=== PATIENT | female | born 1965 | race Caucasian/White ===

== ENCOUNTER 2017-07-11 15:13 | Inpatient (IN) | payer BC ==
[2017-07-11] MEDS ORDERED: IPRATROPIUM-ALBUTEROL 3 ML NEB INHALATION STA (16:31)
--- NOTE | 2017-07-11 16:31 | ED ---
SOB HPI - General Chief Complaint: Shortness of Breath Stated Complaint: Cough Time Seen by Provider: 07/11/17 16:21 Source: patient, RN notes reviewed, old records reviewed Mode of arrival: ambulatory Limitations: no limitations - History of Present Illness Initial Comments: This is a 52-year-old female history of stage IV left breast cancer who is been apparently disease-free for the past 2 years who states she's had a cough for about the last 2 weeks. She's had 2 courses of steroids 2 courses of antibiotics without any relief. She has chills and sweats at times she has orthopnea she has exertional dyspnea. She did see a breaking machine operator but that had apparently CAT scan was not accessible. She is here today for the above complaints. She denies any overt chest pain he states she has had decreased appetite. She also states she was scheduled to have a bone scan and computed tomography scan at [facility] for follow-up. MD Complaint: shortness of breath, cough - Related Data Home Medications Medication Instructions Recorded Confirmed Insulin Glargine [Lantus] 10 unit SQ HS 02/27/14 07/11/17 Venlafaxine HCl ER [Effexor XR] 150 mg PO DAILY 02/27/14 07/11/17 Lisinopril [Zestril] 10 mg PO DAILY 07/26/16 07/11/17 Metoprolol Succinate (ER) [Toprol 100 mg PO HS 07/26/16 07/11/17 Xl] Tamoxifen Citrate 20 mg PO DAILY 07/26/16 07/11/17 metFORMIN HCL ER [Glucophage Xr] 500 mg PO W/BRKFST 07/26/16 07/11/17 Promethaz-Cod 6.25-10 mg/5 ml 5 ml PO Q8HR PRN 07/02/17 07/11/17 [Phenergan with Codeine] Albuterol Nebulized [Ventolin 2.5 mg INHALATION RT-QID PRN 07/11/17 07/11/17 Nebulized] Albuterol Sulfate [Proair 2 puff INHALATION RT-Q4H PRN 07/11/17 07/11/17 Respiclick] Ipratropium-Albuterol Nebulize 3 ml INHALATION RT-QID PRN 07/11/17 07/11/17 [Duoneb 0.5 mg-3 mg/3 ml Soln] Simvastatin [Zocor] 20 mg PO HS 07/11/17 07/11/17 Allergies Allergy/AdvReac Type Severity Reaction Status Date / Time sulfamethoxazole Allergy Itching Verified 07/11/17 18:09 [From Bactrim] trimethoprim [From Bactrim] Allergy Itching Verified 07/11/17 18:09 Review of Systems ROS Statement: Those systems with pertinent positive or pertinent negative responses have been documented in the HPI. ROS Other: All systems not noted in ROS Statement are negative. Past Medical History Past Medical History: Cancer, Diabetes Mellitus, Hyperlipidemia, Hypertension, Skin Disorder, Sleep Apnea/CPAP/BIPAP, Supraventricular Tachycardia (SVT) Additional Past Medical History / Comment(s): STAGE 4 BREAST CANCER, CHEMO RELATED BODY RASH. Cancer free for 2 years with clear scans but still takes daily chemo orally. History of Any Multi-Drug Resistant Organisms: None Reported Past Surgical History: Breast Surgery Additional Past Surgical History / Comment(s): DOUBLE MASTECTOMY, SINUS SURGERY , wisdom teeth out 2010 Past Anesthesia/Blood Transfusion Reactions: No Reported Reaction Past Psychological History: Anxiety, Panic Disorder Smoking Status: Never smoker Past Alcohol Use History: None Reported Past Drug Use History: None Reported - Past Family History Mother Family Medical History: Cancer Father Family Medical History: CVA/TIA General Exam - General Exam Comments Initial Comments: This is a well-developed well-nourished awake alert oriented 3 female Limitations: no limitations General appearance: alert, in no apparent distress Head exam: Present: atraumatic, normocephalic, normal inspection Eye exam: Present: normal appearance, PERRL, EOMI. Absent: scleral icterus, conjunctival injection, periorbital swelling ENT exam: Present: normal exam, mucous membranes moist Neck exam: Present: normal inspection. Absent: tenderness, meningismus, lymphadenopathy Respiratory exam: Present: accessory muscle use, decreased breath sounds. Absent: respiratory distress, wheezes, rales, rhonchi, stridor Cardiovascular Exam: Present: normal rhythm, tachycardia, normal heart sounds. Absent: systolic murmur, diastolic murmur, rubs, gallop, clicks GI/Abdominal exam: Present: soft, normal bowel sounds. Absent: distended, tenderness, guarding, rebound, rigid Extremities exam: Present: normal inspection, full ROM, normal capillary refill. Absent: tenderness, pedal edema, joint swelling, calf tenderness Back exam: Present: normal inspection Neurological exam: Present: alert, oriented X3, CN II-XII intact Psychiatric exam: Present: normal affect, normal mood Skin exam: Present: warm, dry, intact, normal color. Absent: rash Course Vital Signs 07/11/17 07/11/17 07/11/17 15:24 16:25 16:59 Temperature 97.6 F Pulse Rate 121 H 102 H Respiratory 20 20 24 Rate Blood Pressure 115/66 120/68 O2 Sat by Pulse 95 96 Oximetry 07/11/17 07/11/17 07/11/17 17:00 17:10 17:35 Temperature Pulse Rate 102 H 100 105 H Respiratory 20 Rate Blood Pressure 125/62 O2 Sat by Pulse 95 Oximetry 07/11/17 07/11/17 18:10 19:16 Temperature 100.0 F H Pulse Rate 108 H 107 H Respiratory 20 18 Rate Blood Pressure 108/66 127/74 O2 Sat by Pulse 96 96 Oximetry - Reevaluation(s) Reevaluation #1: 07/11/17 17:47 I did obtain a copy of the CAT scan was done on 07/03/17 showed evidence a right pleural effusion mild atelectasis at the right lung base low-density right upper lobe small infiltrates of uncertain significance there is clearing of a right upper lobe 3 x 2 cm infiltrate from previous exam. There is a Pleural effusion also a large calcified gallstone. Medical Decision Making - Medical Decision Making I did review the CAT scan there is evidence of small right pleural effusion small pericardial effusion coronary calcifications no pulmonary embolism. Patient is his symptoms for the past 2 weeks with no improvement she will be admitted with consultation by Dr. Tracy. - Lab Data Result diagrams: 07/11/17 17:26 07/11/17 17:26 Lab Results 07/11/17 07/11/17 07/11/17 Range/Units 17:26 17:26 17:26 WBC 9.8 (3.8-10.6) k/uL RBC 5.22 (3.80-5.40) m/uL Hgb 15.0 (11.4-16.0) gm/dL Hct 47.6 H (34.0-46.0) % MCV 91.1 (80.0-100.0) fL MCH 28.8 (25.0-35.0) pg MCHC 31.6 (31.0-37.0) g/dL RDW 15.2 (11.5-15.5) % Plt Count 252 (150-450) k/uL Neutrophils % 69 % Lymphocytes % 19 % Monocytes % 8 % Eosinophils % 1 % Basophils % 1 % Neutrophils # 6.8 (1.3-7.7) k/uL Lymphocytes # 1.9 (1.0-4.8) k/uL Monocytes # 0.8 (0-1.0) k/uL Eosinophils # 0.1 (0-0.7) k/uL Basophils # 0.1 (0-0.2) k/uL PT 10.7 (9.0-12.0) sec INR 1.1 (<1.2) APTT 23.3 (22.0-30.0) sec D-Dimer 1.48 H (<0.60) mg/L FEU Sodium 137 (137-145) mmol/L Potassium 4.7 (3.5-5.1) mmol/L Chloride 101 (98-107) mmol/L Carbon Dioxide 24 (22-30) mmol/L Anion Gap 12 mmol/L BUN 23 H (7-17) mg/dL Creatinine 0.92 (0.52-1.04) mg/dL Est GFR (MDRD) Af Amer >60 (>60 ml/min/1.73 sqM) Est GFR (MDRD) Non-Af >60 (>60 ml/min/1.73 sqM) Glucose 226 H (74-99) mg/dL Calcium 9.1 (8.4-10.2) mg/dL Magnesium 1.7 (1.6-2.3) mg/dL Total Bilirubin 0.2 (0.2-1.3) mg/dL AST 98 H (14-36) U/L ALT 94 H (9-52) U/L Alkaline Phosphatase 78 (38-126) U/L Total Creatine Kinase (30-135) U/L CK-MB (CK-2) (0.0-2.4) ng/mL CK-MB (CK-2) Rel Index Troponin I (0.000-0.034) ng/mL NT-Pro-B Natriuret Pep pg/mL Total Protein 6.4 (6.3-8.2) g/dL Albumin 3.4 L (3.5-5.0) g/dL 07/11/17 07/11/17 Range/Units 17:26 17:26 WBC (3.8-10.6) k/uL RBC (3.80-5.40) m/uL Hgb (11.4-16.0) gm/dL Hct (34.0-46.0) % MCV (80.0-100.0) fL MCH (25.0-35.0) pg MCHC (31.0-37.0) g/dL RDW (11.5-15.5) % Plt Count (150-450) k/uL Neutrophils % % Lymphocytes % % Monocytes % % Eosinophils % % Basophils % % Neutrophils # (1.3-7.7) k/uL Lymphocytes # (1.0-4.8) k/uL Monocytes # (0-1.0) k/uL Eosinophils # (0-0.7) k/uL Basophils # (0-0.2) k/uL PT (9.0-12.0) sec INR (<1.2) APTT (22.0-30.0) sec D-Dimer (<0.60) mg/L FEU Sodium (137-145) mmol/L Potassium (3.5-5.1) mmol/L Chloride (98-107) mmol/L Carbon Dioxide (22-30) mmol/L Anion Gap mmol/L BUN (7-17) mg/dL Creatinine (0.52-1.04) mg/dL Est GFR (MDRD) Af Amer (>60 ml/min/1.73 sqM) Est GFR (MDRD) Non-Af (>60 ml/min/1.73 sqM) Glucose (74-99) mg/dL Calcium (8.4-10.2) mg/dL Magnesium (1.6-2.3) mg/dL Total Bilirubin (0.2-1.3) mg/dL AST (14-36) U/L ALT (9-52) U/L Alkaline Phosphatase (38-126) U/L Total Creatine Kinase 84 (30-135) U/L CK-MB (CK-2) 1.1 (0.0-2.4) ng/mL CK-MB (CK-2) Rel Index 1.3 Troponin I <0.012 (0.000-0.034) ng/mL NT-Pro-B Natriuret Pep 103 pg/mL Total Protein (6.3-8.2) g/dL Albumin (3.5-5.0) g/dL - EKG Data -: EKG Interpreted by Tx EKG shows normal: sinus rhythm (Sinus tachycardia rate 109 OR interval 140 QRS duration of 68 QT/QTC of 3:30/[address]-T wave changes.) - Radiology Data Radiology results: report reviewed (Imaging shows no acute findings.), image reviewed Disposition Clinical Impression: Acute bronchospasm, Pleural effusion, Pericardial effusion, Febrile illness, acute Disposition: ADMITTED IP TO THIS HOSP Condition: Stable Referrals: Eladio Tobar MD [Primary Care Provider] - 1-2 days
[2017-07-11 17:37] LABS: Basophils # (A) 0.1 k/uL (0-0.2); Basophils % (A) 1 %; CH 30.2; CHCM 33.3; Eosinophils # (A) 0.1 k/uL (0-0.7); Eosinophils % (A) 1 %; HCT 47.6 % (34.0-46.0); Luc # (Auto) 0.15; Luc % (Auto) 2; Lymphocytes # (A) 1.9 k/uL (1.0-4.8); Lymphocytes % (A) 19 %; MCH 28.8 pg (25.0-35.0); MCHC 31.6 g/dL (31.0-37.0); MCV 91.1 fL (80.0-100.0); Mean Platelet Volume 8.4; Monocytes # (A) 0.8 k/uL (0-1.0); Monocytes % (A) 8 %; Neutrophils # (A) 6.8 k/uL (1.3-7.7); Neutrophils % (A) 69 %; RBC 5.22 m/uL (3.80-5.40); RDW 15.2 % (11.5-15.5); WBC 9.8 k/uL (3.8-10.6)
[2017-07-11 17:48] LABS: ALT 94 U/L (9-52); AST 98 U/L (14-36); Alkaline Phosphatase 78 U/L (38-126); Anion Gap 12 mmol/L; Blood Urea Nitrogen 23 mg/dL (7-17); Calcium 9.1 mg/dL (8.4-10.2); Carbon Dioxide 24 mmol/L (22-30); Chloride 101 mmol/L (98-107); Glucose 226 mg/dL (74-99); Magnesium 1.7 mg/dL (1.6-2.3); Non-African American GFR(MDRD) >60 (>60 ml/min/1.73 sqM); Potassium 4.7 mmol/L (3.5-5.1); Sodium 137 mmol/L (137-145); Total Bilirubin 0.2 mg/dL (0.2-1.3); Total Protein 6.4 g/dL (6.3-8.2)
[2017-07-11 17:51] LABS: INR 1.1 (<1.2); Partial Thromboplastin Time 23.3 sec (22.0-30.0); Prothrombin Time 10.7 sec (9.0-12.0)
[2017-07-11 18:05] LABS: Creatine Kinase 84 U/L (30-135)
--- NOTE | 2017-07-11 18:12 | XR ---
EXAMINATION TYPE: XR chest 2V DATE OF EXAM: 07/11/2017 COMPARISON: 10/11/2016 HISTORY: Cough and right-sided chest pain TECHNIQUE: Frontal and lateral views of the chest are obtained. FINDINGS: Right IJ Port-A-Cath tip superimposed over the cavoatrial junction. EKG leads noted. Left a xillary surgical clips are noted. There is no definite focal air space opacity. However, the hemidiaphragms are elevated consistent wit h low lung inflation state at the moment of x-ray exposure. This tends to crowd the pulmonary vascula ture and produce scattered subsegmental atelectasis, which is apparent. The pleural spaces are positive for a meniscus in the right lateral sulcus and the posterior sulcus The cardiac silhouette size is within normal limits. The arborization of the pulmonary vasculature is intact.. The osseous structures are unremarkable. IMPRESSION: 1. SMALL RIGHT PLEURAL EFFUSION NOT SEEN ON THE PRIOR STUDY. 2. NO DEFINITE ACUTE PULMONARY PROCESS, BUT EARLY BRONCHOPNEUMONIA CAN ONLY BE INCLUDED ON A CLINICAL BASIS.
[2017-07-11 18:17] LABS: Creatine Kinase MB 1.1 ng/mL (0.0-2.4); Troponin I <0.012 ng/mL (0.000-0.034)
[2017-07-11] MEDS ORDERED: RX INFO: IV CONTRAST WAS GIVEN 1 EACH MISC MISCELLANE PRN (18:37)
[2017-07-11] MEDS ORDERED: ACETAMINOPHEN TAB 500 MG TAB PO STA (19:20)
--- NOTE | 2017-07-11 19:25 | CT ---
EXAMINATION TYPE: CT angio chest DATE OF EXAM: 07/11/2017 7:03 PM COMPARISON: NONE HISTORY: Cough, congestion and chest discomfort for [address] DLP: 445.4 mGycm Automated exposure control for dose reduction was used. CONTRAST: CTA scan of the thorax is performed with IV Contrast, patient injected with 100 mL of Omnipaque 350, pulmonary embolism protocol. . FINDINGS: LUNGS: The airways are unremarkable. The lungs are grossly clear, with no concerning parenchymal mass . However, a few scattered 4 to 7 mm pulmonary nodules are identified. These are noncalcified and can not be further characterized without and study. Nonexistent. Therefore, would advise 6 month follow-u p chest CT to ensure stability-benignity over time. PLEURAL SPACES: There is a small right pleural effusion noted, appearing to be simple. Pleural spaces otherwise unremarkable. MEDIASTINUM: There is satisfactory enhancement of the pulmonary artery and its branches, with no CT e vidence for pulmonary embolism. There are no greater than 1 cm hilar or mediastinal lymph nodes. The re is no cardiomegaly. Coronary calcifications are noted. Small pericardial effusion noted. SKELETAL STRUCTURES: Unremarkable. OTHER: Cholelithiasis noted in an otherwise unremarkable gallbladder. IMPRESSION: 1. NEGATIVE FOR PULMONARY EMBOLUS. 2. SMALL RIGHT PLEURAL EFFUSION NOTED. 3. SMALL PERICARDIAL EFFUSION. 4. CORONARY CALCIFICATIONS NOTED.
[2017-07-11] MEDS ORDERED: methylPREDNISolone SOD SUCCI 125 MG/2 ML VIAL IV STA (20:06)
[2017-07-11] MEDS ORDERED: PROMETHAZ-COD 6.25-10 MG/5 ML 5 ML CUP PO PRN (20:09)
[2017-07-11] MEDS: SODIUM CHLORIDE 0.9% 1,000 ML IV SCH (20:23)
[2017-07-11] MEDS ORDERED: INSULIN GLARGINE 100 UNIT/ML 10 ML VIAL SQ SCH (21:00)
[2017-07-11] MEDS ORDERED: METOPROLOL SUCCINATE (ER) 100 MG TAB.ER.24H PO SCH (21:00)
[2017-07-11] MEDS ORDERED: IPRATROPIUM-ALBUTEROL 3 ML NEB INHALATION PRN (21:58)
[2017-07-11] MEDS: ATORVASTATIN 10 MG TAB PO SCH (22:10)
[2017-07-11 22:12] LABS: Glucose,Whole Blood 138 mg/dL (75-99)
[2017-07-12] MEDS ORDERED: IPRATROPIUM-ALBUTEROL 3 ML NEB INHALATION SCH
[2017-07-12 00:02] VITALS: BMI 37.4
[2017-07-12] MEDS: methylPREDNISolone SOD SUCCI 125 MG/2 ML VIAL IV SCH ×3 (00:06→12:05)
[2017-07-12 06:01] LABS: Glucose,Whole Blood 331 mg/dL (75-99)
[2017-07-12] MEDS: INSULIN LISPRO (humaLOG) 300 UNIT/3 ML VIAL SQ SCH ×4 (06:24→21:18)
[2017-07-12] MEDS ORDERED: metFORMIN 500 MG TAB PO SCH ×2 (07:30→17:30)
[2017-07-12] MEDS: VENLAFAXINE HCL ER 150 MG CAP PO SCH (08:25)
[2017-07-12] MEDS: TAMOXIFEN 10 MG TAB PO SCH (08:25)
[2017-07-12] MEDS ORDERED: LISINOPRIL 10 MG TAB PO SCH (09:00)
[2017-07-12] MEDS: IPRATROPIUM-ALBUTEROL 3 ML NEB INHALATION SCH ×2 (10:57→11:00)
[2017-07-12 11:35] LABS: Glucose,Whole Blood 259 mg/dL (75-99)
[2017-07-12] MEDS: ENOXAPARIN 40 MG/0.4 ML SYRINGE SQ SCH (12:06)
[2017-07-12 12:42] LABS: Hemoglobin A1C 7.9 % (4.2-6.1)
[2017-07-12] MEDS: METOPROLOL TARTRATE 50 MG TAB PO SCH ×2 (15:40→21:17)
[2017-07-12] MEDS: LORATADINE 10 MG TAB PO SCH ×2 (15:41→21:17)
--- NOTE | 2017-07-12 16:14 | P.CNPUL ---
History of Present Illness Consult date: 07/12/17 Reason for consult: cough History of present illness: This is a 52-year-old female patient with known history of metastatic breast cancer was undergone bilateral mastectomy. She is morbidly obese. She has history of obstructive sleep apnea and she is maintained on CPAP therapy. She also has history of hypertension taking lisinopril for at least 5 years for blood pressure control. For the past 2 months, the patient started having symptoms of cough. Her cough is dry and she was not bringing up much of sputum. She has minimal postnasal drainage. She has been also expressing some exertional dyspnea. No pleurisy. No hemoptysis. She had seen her primary care physician and she has already received 2 rounds of systemic steroids without much of any improvement. She also has received several psych some antibiotics without improvement. She is getting quite frustrated from her ongoing cough and she's been having also some limited exertional dyspnea and addition to other nonspecific chest discomfort and diminished appetite. The patient is not hypoxic and her pulse ox is around 94% on room air. For all this reasons, the patient decided to come into the hospital where a CT angios the chest was done and it showed a small right-sided pleural effusion. The pleural surface itself was irregular. There is also scattered area of nodularity throughout the lung bedoya bilaterally and the largest nodules is measuring around 7 mm in size. These are noncalcified. The exact nature of these nodules are not clear to me at this point. The left pleural space was clean. There is also a very small tiny anterior pericardial effusion. No leukocytosis. Rest of the electrodes are all within normal limits. No 70 bronchial asthma. She has undergone bilateral mastectomy. She has stage IV breast cancer and she had history of metastases to her liver. She is currently on tamoxifen. Review of Systems Constitutional: Reports poor appetite, Reports weight loss Eyes: denies blurred vision, denies bulging eye, denies decreased vision Ears: deny: decreased hearing, ear discharge, earache Ears, nose, mouth and throat: Denies headache, Denies sore throat Cardiovascular: Reports dyspnea on exertion Respiratory: Reports cough, Reports dyspnea, Reports sleep apnea Gastrointestinal: Denies abdominal pain, Denies diarrhea, Denies nausea, Denies vomiting Genitourinary: Denies dysuria, Denies hematuria Musculoskeletal: absent: ankle pain, ankle stiffness, ankle swelling Integumentary: Denies pruritus, Denies rash Neurological: Denies numbness, Denies weakness Psychiatric: Denies anxiety, Denies depression Endocrine: Denies fatigue, Denies weight change Past Medical History Past Medical History: Cancer, Diabetes Mellitus, Hyperlipidemia, Hypertension, Skin Disorder, Sleep Apnea/CPAP/BIPAP, Supraventricular Tachycardia (SVT) Additional Past Medical History / Comment(s): Stage IV breast cancer with previous bilateral mastectomy, chemotherapy and the patient is currently on tamoxifen and apparently she has been cancer free for quite a while, obstructive sleep apnea, hypertension, hyperlipidemia, anxiety/panic, SVT, diabetes mellitus History of Any Multi-Drug Resistant Organisms: None Reported Past Surgical History: Breast Surgery Additional Past Surgical History / Comment(s): DOUBLE MASTECTOMY, SINUS SURGERY , wisdom teeth out 2010 Past Anesthesia/Blood Transfusion Reactions: No Reported Reaction Past Psychological History: Anxiety, Panic Disorder Smoking Status: Never smoker Past Alcohol Use History: None Reported Past Drug Use History: None Reported - Past Family History Mother Family Medical History: Cancer Additional Family Medical History / Comment(s): breast CA Father Family Medical History: CVA/TIA Medications and Allergies Home Medications Medication Instructions Recorded Confirmed Type Insulin Glargine [Lantus] 10 unit SQ HS 02/27/14 07/11/17 History Venlafaxine HCl ER [Effexor XR] 150 mg PO DAILY 02/27/14 07/11/17 History Lisinopril [Zestril] 10 mg PO DAILY 07/26/16 07/11/17 History Metoprolol Succinate (ER) [Toprol 100 mg PO HS 07/26/16 07/11/17 History Xl] Tamoxifen Citrate 20 mg PO DAILY 07/26/16 07/11/17 History metFORMIN HCL ER [Glucophage Xr] 500 mg PO W/BRKFST 07/26/16 07/11/17 History Promethaz-Cod 6.25-10 mg/5 ml 5 ml PO Q8HR PRN 07/02/17 07/11/17 History [Phenergan with Codeine] Albuterol Nebulized [Ventolin 2.5 mg INHALATION RT-QID PRN 07/11/17 07/11/17 History Nebulized] Albuterol Sulfate [Proair 2 puff INHALATION RT-Q4H PRN 07/11/17 07/11/17 History Respiclick] Ipratropium-Albuterol Nebulize 3 ml INHALATION RT-QID PRN 07/11/17 07/11/17 History [Duoneb 0.5 mg-3 mg/3 ml Soln] Simvastatin [Zocor] 20 mg PO HS 07/11/17 07/11/17 History Allergies Allergy/AdvReac Type Severity Reaction Status Date / Time sulfamethoxazole Allergy Itching Verified 07/11/17 18:09 [From Bactrim] trimethoprim [From Bactrim] Allergy Itching Verified 07/11/17 18:09 Physical Exam Vitals: Vital Signs Temp Pulse Pulse Resp BP BP Pulse Ox 07/12/17 15:35 96.4 F L 104 H 20 110/78 95 07/12/17 11:35 98.2 F 94 20 105/64 94 L 07/12/17 11:10 108 H 07/12/17 11:00 100 16 07/12/17 08:00 99 F 118 H 20 105/64 96 07/12/17 04:00 98.5 F 86 18 113/70 93 L 07/12/17 00:00 98.5 F 85 18 106/63 94 L 07/11/17 22:00 98.2 F 96 18 133/75 95 07/11/17 21:02 98.6 F 100 18 110/63 94 L 07/11/17 20:05 98.9 F 105 H 19 115/75 96 07/11/17 19:16 100.0 F H 107 H 18 127/74 96 07/11/17 18:10 108 H 20 108/66 96 07/11/17 17:35 105 H 20 125/62 95 07/11/17 17:10 100 07/11/17 17:00 102 H 07/11/17 16:59 24 07/11/17 16:25 102 H 20 120/68 96 Intake and Output 07/12/17 07/12/17 07/12/17 06:59 14:59 22:59 Intake Total 160 1010 Output Total 600 450 Balance -440 560 Intake: IV 50 [id number] 1,000 mg In 50 Sodium Chloride 0.9% 50 ml @ 100 mls/hr IVPB ONCE STA Rx#:[id number] Intake, IV Titration 160 160 Amount Sodium Chloride 0.9% 1, 160 160 000 ml @ 20 mls/hr IV . Q24H [facility] Rx#:[id number] Oral 800 Output: Urine 600 450 Other: Voiding Method Toilet Weight 102.5 kg Obese, calm and comfortable likely distress. Head is atraumatic normocephalic. Neck is soft and there is no JVDs no goiter or neck masses. There is significant crowding of the posterior oropharynx and a metabolic S4. Lung sounds are diminished in the right lung bases otherwise clear. There is no wheezes or rhonchi any crackles.Cardiac exam revealed the PMI to be normally situated and sized. The rhythm was regular and no extrasystoles were noted during several minutes of auscultation. The first and second heart sounds were normal and physiologic splitting of the second heart sound was noted. There were no murmurs, rubs, clicks, or gallops.Abdominal exam revealed normal bowel sounds. The abdomen was soft, non-tender, and without masses, organomegaly, or appreciable enlargement of the abdominal aorta.Examination of the extremities revealed easily palpable radial, femoral and pedal pulses. There was no cyanosis , clubbing or edema. Skin is within normal there is no cellulitis or any wounds or ulcers. Skeletal system is negative for any arthritis or joint deformities. Neurologic exam the patient going 3 and the patient has no focal neurological deficit and the patient has a nonfocal exam. Results - Laboratory Findings CBC and BMP: 07/11/17 17:26 07/11/17 17:26 PT/INR, D-dimer PT 10.7 sec (9.0-12.0) 07/11/17 17: INR 1.1 (<1.2) 07/11/17 17:26 D-Dimer 1.48 mg/L FEU (<0.60) H 07/11/17 17:26 Abnormal lab findings: Abnormal Labs 07/11/17 07/11/17 07/11/17 17:26 17:26 17:26 Hct 47.6 H D-Dimer 1.48 H BUN 23 H Glucose 226 H POC Glucose (mg/dL) Hemoglobin A1c AST 98 H ALT 94 H Albumin 3.4 L 07/11/17 07/11/17 07/12/17 17:26 22:07 05:59 Hct D-Dimer BUN Glucose POC Glucose (mg/dL) 138 H 331 H Hemoglobin A1c 7.9 H AST ALT Albumin 07/12/17 11:32 Hct D-Dimer BUN Glucose POC Glucose (mg/dL) 259 H Hemoglobin A1c AST ALT Albumin - Diagnostic Findings CT scan - chest: image reviewed Assessment and Plan Plan: Assessment 1 subacute/chronic cough progressively getting worse over the past 2 months. No evidence of any bronchospasm or wheezing. No evidence of any bronchitis or acute pulmonary infection. Patient is on AMBER inhibitor. The patient also has some vague nodularity scattered throughout the lung his bilaterally along with some small anterior pericardial effusion and a small right-sided pleural effusion. These abnormalities raises the possibility of early metastatic pulmonary involvement with breast cancer. The pleural surfaces quite irregular and nodular and does not are quite striking abnormality. Doubt ALLERGIES with postnasal drainage contributing to her cough. Doubt any other causes of cough such as reflux 2 obesity 3 obstructive sleep apnea. 4 metastatic breast cancer with a previous bilateral mastectomy followed by systemic chemotherapy currently on tamoxifen 5 hypertension 6 hyperlipidemia 7 anxiety/panic 8 history of SVT. 9 diabetes mellitus Plan We'll stop the AMBER inhibitor. We'll proceed an echocardiogram. Discussed the CAT scan findings with the patient periodically obviously is the pleural effusion increases and sized to need to be drained. A PET scan will be reasonable to make sure there is no metastatic focus or any metastatic uptake within the lungs or pleural surface. This can be done outpatient basis. Meanwhile we'll suppress this patient with intensive medication. CT angios the chest was reviewed. No evidence of pulmonary embolism. Continue CPAP therapy at a pressure of 8 cm of water. The patient is compliant. Will need outpatient follow-up regarding her cough.
--- NOTE | 2017-07-12 16:32 | HP ---
HISTORY AND PHYSICAL DATE OF ADMISSION: 07/11/2017 PRESENTING COMPLAINT: Cough. HISTORY OF PRESENTING COMPLAINT: This is a pleasant 52-year-old patient of Dr. Tobar whose chronic stable medical conditions include diabetes, hypertension, obstructive sleep apnea, anxiety, hyperlipidemia. The patient also has stage IV breast cancer with metastasis. She has now been disease-free for close to 2 years. The patient did have 2 spots on the liver, she says, and has been followed by surveillance. Patient since the middle of April has been having a cough which is pretty much dry, and she gets into bouts of coughing with sweating sometimes. Appetite is not very good. Patient has put on a little bit of weight, she thinks, but is not entirely sure. Sometimes she gets some edema. Patient did go and see Dr. Tobar twice and did get a course of steroids and bronchodilators, without much help. The patient has been on AMBER inhibitors for the last 5 years, which is not new for her. Patient seems to be getting increasing cough when she lies down and sometimes does feel itchiness in the throat. Because of these symptoms, she decided to come to the ER. She was seen by Dr. Steve Allen, measurement superintendent, as an outpatient, but was looking for a quicker response of treatment. REVIEW OF SYSTEMS: CONSTITUTIONAL: Tired. Some loss of appetite. HEENT: As above. RESPIRATORY: As above. CARDIOVASCULAR: None. GASTROINTESTINAL: No obvious heartburn. GENITOURINARY: None. MUSCULOSKELETAL: None. DERMATOLOGICAL: None. HEMATOLOGICAL: None. LYMPHATICS: None. PSYCHIATRY: Some anxiety. NEUROLOGICAL: None. PAST MEDICAL HISTORY: 1. PSVT. 2. Diabetes. 3. Hypertension. 4. Obstructive sleep apnea. 5. Stage IV metastatic breast cancer, treated. 6. Anxiety. 7. Hyperlipidemia. PAST SURGICAL HISTORY: 1. Bilateral mastectomies. 2. Sinus surgery. SOCIAL HISTORY: Does not smoke or drink alcohol. . FAMILY HISTORY: Breast cancer. PSYCH HISTORY: Anxiety. HOME MEDICATIONS: 1. Glucophage XR 500 mg p.o. with breakfast. 2. Effexor XR 150 mg p.o. daily. 3. Amoxicillin 20 mg p.o. daily. 4. Zocor 20 mg at bedtime. 5. Phenergan with codeine 5 mL q.8 p.r.n. 6. Toprol-XL ER 100 mg at bedtime. 7. Zestril 10 mg p.o. daily. 8. DuoNeb q.i.d. p.r.n. 9. Lantus 10 units subcutaneously at bedtime. 10.ProAir 2 puffs q.4 p.r.n. 11.Ventolin 2.5 nebulizer q.i.d. p.r.n. ALLERGIES: BACTRIM. PHYSICAL EXAMINATION: VITAL SIGNS ON PRESENTATION: Temperature 97.6 pulse 102, respirations 20, blood pressure 120/68, pulse ox 96% on 2 L and 95% on room air. GENERAL APPEARANCE: Well built; BMI 37.6. Sitting up. A bit anxious-appearing. EYES: Pupils equal. Conjunctivae normal. HEENT: Oral cavity normal. NECK: JVD not raised. Mass not palpable. RESPIRATORY: Effort normal. LUNGS: Fair air entry. CARDIOVASCULAR: First and second sounds normal. No edema. ABDOMEN: Soft, nontender. Liver and spleen not palpable. LYMPHATIC: No lymph node palpable in neck or axillae. PSYCHIATRY: Alert oriented x3. Mood and affect normal. NEUROLOGICAL: Pupils equal. Cranial nerves grossly intact. Power and sensation grossly intact. INVESTIGATIONS: White count 9.8, hemoglobin 15, potassium 4.7, BUN 23, creatinine 0.92. AST 94, ALT 94. EKG shows some sinus tachycardia. Chest CTA shows cholelithiasis; negative for PE. ASSESSMENT: 1. This is a patient who has got about 2 months of cough. It seems to be worse when she lies down and patient has got some allergic symptoms. This could well be from upper respiratory viral infection that can oftentimes linger on for weeks. At the same time, patient may have silent reflux that may be causing her cough symptoms. Extremely unlikely but possible is that from the AMBER inhibitor. 2. Obesity; BMI 37.6. 3. Diabetes mellitus, type 2, on oral hypoglycemic. 4. Essential hypertension. 5. Obstructive sleep apnea. 6. History of stage IV breast cancer with metastasis, currently disease-free. 7. Anxiety not otherwise specified. 8. Hyperlipidemia. 9. Abnormal CT scan of the chest as reviewed by Dr. Tracy. Concern regarding questionable recurrence of disease. PLAN: At this point we will stop patient's bronchodilators. Will stop the AMBER inhibitor. For better control of blood pressure, will spread the Toprol-XL to 50 mg twice a day. Will also add some proton pump inhibitor to cut back on the reflux. I had a lengthy talk with Dr. Tracy and the patient. Patient will probably have an outpatient PET scan. Will also add Claritin. Given that patient takes a very small dose of Lantus, will change the Glucophage to 1000 mg twice a day in hopes that sugars can be better controlled; and patient being off the steroids. We do not see the need for steroids at this point. Discussed at length. MMODL / IJN: [id number] /
[2017-07-12 16:48] LABS: Glucose,Whole Blood 287 mg/dL (75-99)
[2017-07-12] MEDS: metFORMIN 500 MG TAB PO SCH (18:32)
[2017-07-12 20:39] LABS: Glucose,Whole Blood 270 mg/dL (75-99)
[2017-07-12] MEDS: FAMOTIDINE 20 MG TAB PO SCH (21:17)
[2017-07-12] MEDS: ATORVASTATIN 10 MG TAB PO SCH (21:18)
[2017-07-13] MEDS: SODIUM CHLORIDE 0.9% 1,000 ML IV SCH (06:20)
[2017-07-13 07:00] LABS: Glucose,Whole Blood 101 mg/dL (75-99)
[2017-07-13 07:25] VITALS: BP 115/61; RESP 18; TEMP 98
[2017-07-13] MEDS: INSULIN LISPRO (humaLOG) 300 UNIT/3 ML VIAL SQ SCH ×2 (07:53→11:49)
[2017-07-13] MEDS: FAMOTIDINE 20 MG TAB PO SCH (08:55)
[2017-07-13] MEDS: VENLAFAXINE HCL ER 150 MG CAP PO SCH (08:55)
[2017-07-13] MEDS: LORATADINE 10 MG TAB PO SCH (08:55)
[2017-07-13] MEDS: metFORMIN 500 MG TAB PO SCH (08:55)
[2017-07-13] MEDS: METOPROLOL TARTRATE 50 MG TAB PO SCH (08:55)
[2017-07-13] MEDS: ENOXAPARIN 40 MG/0.4 ML SYRINGE SQ SCH (08:56)
[2017-07-13] MEDS: TAMOXIFEN 10 MG TAB PO SCH (08:57)
[2017-07-13 10:16] VITALS: PULSE 82
[2017-07-13 11:22] LABS: Glucose,Whole Blood 115 mg/dL (75-99)
--- NOTE | 2017-07-13 15:39 | P.PN ---
Subjective This is a 52-year-old female patient with known history of metastatic breast cancer was undergone bilateral mastectomy. She is morbidly obese. She has history of obstructive sleep apnea and she is maintained on CPAP therapy. She also has history of hypertension taking lisinopril for at least 5 years for blood pressure control. For the past 2 months, the patient started having symptoms of cough. Her cough is dry and she was not bringing up much of sputum. She has minimal postnasal drainage. She has been also expressing some exertional dyspnea. No pleurisy. No hemoptysis. She had seen her primary care physician and she has already received 2 rounds of systemic steroids without much of any improvement. She also has received several psych some antibiotics without improvement. She is getting quite frustrated from her ongoing cough and she's been having also some limited exertional dyspnea and addition to other nonspecific chest discomfort and diminished appetite. The patient is not hypoxic and her pulse ox is around 94% on room air. For all this reasons, the patient decided to come into the hospital where a CT angios the chest was done and it showed a small right-sided pleural effusion. The pleural surface itself was irregular. There is also scattered area of nodularity throughout the lung bedoya bilaterally and the largest nodules is measuring around 7 mm in size. These are noncalcified. The exact nature of these nodules are not clear to me at this point. The left pleural space was clean. There is also a very small tiny anterior pericardial effusion. No leukocytosis. Rest of the electrodes are all within normal limits. No 70 bronchial asthma. She has undergone bilateral mastectomy. She has stage IV breast cancer and she had history of metastases to her liver. She is currently on tamoxifen. On 07/11/2017 the patient is feeling slightly better. Still coughing on and off. AMBER inhibitor has been discontinued. Echocardiogram has been ordered and is also still pending. This can be even checked on outpatient basis. Outpatient PET scan was also sent. Discharge planning is in progress and the patient would like to get discharged home today. Objective - Vital Signs Vital signs: Vital Signs Temp 98 F 07/13/17 07:00 Pulse 82 07/13/17 09:15 Resp 18 07/13/17 09:15 BP 115/61 07/13/17 07:00 Pulse Ox 94 L 07/13/17 07:00 Intake & Output 07/12/17 07/13/17 07/13/17 18:59 06:59 18:59 Intake Total 1010 230 160 Output Total 450 Balance 560 230 160 Weight 103.5 kg Intake: IV 50 cefTRIAXone 1,000 mg In 50 Sodium Chloride 0.9% 50 ml @ 100 mls/hr IVPB ONCE STA Rx#:[id number] Intake, IV Titration 160 230 160 Amount Sodium Chloride 0.9% 1, 160 230 160 000 ml @ 20 mls/hr IV . Q24H MATT Rx#:[id number] Oral 800 Output: Urine 450 Other: Voiding Method Toilet Toilet # Voids 1 - Exam Obese, calm and comfortable likely distress. Head is atraumatic normocephalic. Neck is soft and there is no JVDs no goiter or neck masses. There is significant crowding of the posterior oropharynx and a metabolic S4. Lung sounds are diminished in the right lung bases otherwise clear. There is no wheezes or rhonchi any crackles.Cardiac exam revealed the PMI to be normally situated and sized. The rhythm was regular and no extrasystoles were noted during several minutes of auscultation. The first and second heart sounds were normal and physiologic splitting of the second heart sound was noted. There were no murmurs, rubs, clicks, or gallops.Abdominal exam revealed normal bowel sounds. The abdomen was soft, non-tender, and without masses, organomegaly, or appreciable enlargement of the abdominal aorta.Examination of the extremities revealed easily palpable radial, femoral and pedal pulses. There was no cyanosis , clubbing or edema. Skin is within normal there is no cellulitis or any wounds or ulcers. Skeletal system is negative for any arthritis or joint deformities. Neurologic exam the patient going 3 and the patient has no focal neurological deficit and the patient has a nonfocal exam. - Labs CBC & Chem 7: 07/11/17 17:26 07/11/17 17:26 Labs: Abnormal Lab Results - Last 24 Hours (Table) 07/12/17 07/12/17 07/13/17 Range/Units 16:44 20:16 06:44 POC Glucose (mg/dL) 287 H 270 H 101 H (75-99) mg/dL 07/13/17 Range/Units 11:19 POC Glucose (mg/dL) 115 H (75-99) mg/dL Microbiology - Last 24 Hours (Table) 07/11/17 17:26 Blood Culture - Preliminary Blood No Growth after 24 hours Assessment and Plan Plan: Assessment 1 subacute/chronic cough progressively getting worse over the past 2 months. No evidence of any bronchospasm or wheezing. No evidence of any bronchitis or acute pulmonary infection. Patient is on AMBER inhibitor. The patient also has some vague nodularity scattered throughout the lung his bilaterally along with some small anterior pericardial effusion and a small right-sided pleural effusion. These abnormalities raises the possibility of early metastatic pulmonary involvement with breast cancer. The pleural surfaces quite irregular and nodular and does not are quite striking abnormality. Doubt ALLERGIES with postnasal drainage contributing to her cough. Doubt any other causes of cough such as reflux 2 obesity 3 obstructive sleep apnea. 4 metastatic breast cancer with a previous bilateral mastectomy followed by systemic chemotherapy currently on tamoxifen 5 hypertension 6 hyperlipidemia 7 anxiety/panic 8 history of SVT. 9 diabetes mellitus Plan The patient is off AMBER inhibitor. The patient would have a outpatient PET scan. Patient is ambulating. No respiratory difficulties for now. Will need outpatient evaluation regarding her chronic cough with a pulmonary function test. May need a biopsy if the cough does not subside.
--- NOTE | 2017-07-13 18:10 | DS ---
DISCHARGE SUMMARY DATE OF ADMISSION: 07/12/2017. DATE OF DISCHARGE: 07/13/2017 FINAL DIAGNOSES: 1. Significant cough could be from postnasal drip from upper respiratory tract probably viral infection. 2. Obesity, BMI 31.6. 3. Diabetes mellitus type 2, on oral hypoglycemic. 4. Essential hypertension. 5. Obstructive sleep apnea. 6. History of stage IV breast cancer with metastatic disease, currently disease free. 7. Anxiety, not otherwise specified. 8. Hyperlipidemia. 9. Abnormal CT scan. Workup in progress. HOSPITAL COURSE: This patient presented with cough that was improving having failed outpatient bronchodilators and steroids. It was felt patient could have had a viral upper respiratory tract that could be precipitating the cough. Reflux symptoms were possible as patient was given Pepcid. The patient's steroids were actually discontinued and so were the bronchodilators. Also the steroids were stopped completely the patient's dose of metformin has been increased. The Lantus has been discontinued. Patient's blood pressure medications were adjusted. Also it was felt the cough could be affect of AMBER inhibitor though she has been taking this for quite a while, hence, AMBER inhibitor has been discontinued too. Care was discussed at length with the patient. CONSULTATION: Dr. Tracy. PHYSICAL EXAMINATION: On exam, LUNGS: Fair air entry. CARDIOVASCULAR: First and second sounds normal. Additionally patient's chest CT was negative. DC MEDICATIONS: 1. Effexor XR 150 mg a day. 2. Tamoxifen citrate 20 mg p.o. daily. 3. Phenergan with codeine 5 mL p.o. q.8 p.r.n. 4. Zocor 20 mg q.h.s. 5. Pepcid 20 mg p.o. b.i.d. 6. Claritin 5 mg p.o. q.12. 7. Lopressor 50 mg p.o. b.i.d. 8. Metformin 1000 mg p.o. b.i.d. Discontinued medications: Lantus, Zestril, toprol-XL, bronchodilators. Additionally patient's CT scan of the chest showed some haziness in some areas, hence, an outpatient PET scan is being set up with Dr. Tracy. He will follow up on the same. This was discussed with the patient at length. To follow up with Dr. Tobar on 07/26/2017, follow with Dr. Tracy on 07/25/2017. MMMKL / IJN: [id number] /
--- NOTE | 2017-07-13 21:47 | ECHOF ---
Referral Reason:lv function MEASUREMENTS -------- HEIGHT: 165.1 cm WEIGHT: 102.1 kg BP: 105/64 RVIDd: 2.8 cm (< 3.3) IVSd: 1.1 cm (0.6 - 1.1) LVIDd: 4.4 cm (3.9 - 5.3) LVPWd: 1.1 cm (0.6 - 1.1) IVSs: 1.5 cm LVIDs: 2.8 cm LVPWs: 1.7 cm LA Diam: 3.2 cm (2.7 - 3.8) LAESV Index (A-L): 21.21 ml/m Ao Diam: 3.2 cm (2.0 - 3.7) AV Cusp: 2.2 cm (1.5 - 2.6) MV EXCURSION: 18.872 mm (> 18.000) MV EF SLOPE: 117 mm/s (70 - 150) MV E Maverick: 0.58 m/s MV DecT: 217 ms MV A Maverick: 0.87 m/s MV E/A Ratio: 0.66 RAP: 5.00 mmHg RVSP: 24.94 mmHg FINDINGS -------- Resting tachycardia (HR>100bpm). This was a technically good study. The left ventricular size is normal. There is borderline concentric left ventricular hypertrophy. Overall left ventricular systolic function is normal with, an EF between 60 - 65 %. The right ventricle is normal in size. Normal LA size by volume 22+/-6 ml/m2. The right atrium is normal in size. The aortic valve is trileaflet and appears structurally normal. The mitral valve leaflets are mildly thickened. Mild mitral annular calcification present. Mild tricuspid regurgitation present. Right ventricular systolic pressure is normal at < 35 mmHg. There is no pulmonic regurgitation present. The aortic root size is normal. IVC Not well visulized. There is no pericardial effusion. CONCLUSIONS -------- 1. Resting tachycardia (HR>100bpm). 2. The mitral valve leaflets are mildly thickened. 3. Mild mitral annular calcification present. 4. Mild tricuspid regurgitation present. 5. Right ventricular systolic pressure is normal at < 35 mmHg. 6. There is no pulmonic regurgitation present. 7. The aortic root size is normal. 8. IVC Not well visulized. 9. There is no pericardial effusion. 10. This was a technically good study. 11. The left ventricular size is normal. 12. There is borderline concentric left ventricular hypertrophy. 13. Overall left ventricular systolic function is normal with, an EF between 60 - 65 %. 14. The right ventricle is normal in size. 15. Normal LA size by volume 22+/-6 ml/m2. 16. The right atrium is normal in size. 17. The aortic valve is trileaflet and appears structurally normal. LOANS OFFICER: Grecia Figueroa RDCS
== END 2017-07-13 16:00 | disposition home or self-care (01) | DRG 866 ==
LOC: EC 15:13 → 6SEL 20:06 → 5ONC 07-12 17:17
PROVIDERS: ADMIT Hospitalist; ATTEND Hospitalist
DX: B34.9 Viral infection, unspecified (principal); J90 Pleural effusion, not elsewhere classified; C78.7 Secondary malignant neoplasm of liver and intrahepatic bile duct; I31.3 Pericardial effusion (noninflammatory); E66.01 Morbid (severe) obesity due to excess calories; E11.9 Type 2 diabetes mellitus without complications; J06.9 Acute upper respiratory infection, unspecified; I10 Essential (primary) hypertension; G47.33 Obstructive sleep apnea (adult) (pediatric); E78.5 Hyperlipidemia, unspecified; F41.0 Panic disorder [episodic paroxysmal anxiety]; K21.9 Gastro-esophageal reflux disease without esophagitis; T50.995A Adverse effect of other drugs, medicaments and biological substances, initial encounter; Z68.37 Body mass index [BMI] 37.0-37.9, adult; Z79.899 Other long term (current) drug therapy; Z79.4 Long term (current) use of insulin; Z85.3 Personal history of malignant neoplasm of breast; Z80.3 Family history of malignant neoplasm of breast; Z90.13 Acquired absence of bilateral breasts and nipples; Z79.810 Long term (current) use of selective estrogen receptor modulators (SERMs); Z79.51 Long term (current) use of inhaled steroids
CPT/HCPCS: 36415; 71020; 71275; 80053; 82550; 82553; 83036; 83735; 83880; 84484; 85025; 85379; 85610; 85730; 87040; 93005; 93306; 94640; 96361; 96365; 96375; 99285

== ENCOUNTER → 2017-07-30 | Day surgery (SDC) | payer BC ==
[~2017-07-30] MED LIST: SODIUM CHLORIDE 0.9% 500 ML in EMPTY BAG 1 BAG IV PRN
[2017-07-30 10:47] VITALS: BP 128/89; PULSE 136; RESP 18; TEMP 98.3
--- NOTE | 2017-07-30 12:03 | XR ---
EXAMINATION TYPE: XR chest 1V portable DATE OF EXAM: 07/30/2017 COMPARISON: 07/25/2017 HISTORY: Postthoracentesis TECHNIQUE: Single frontal view of the chest is obtained. FINDINGS: There is interval marked improvement in the right-sided pleural effusion. No sizable pneum othorax. Postsurgical changes involving the soft tissues along the chest bilaterally. Mediport catheter seen w ith the catheter somewhat coiled with the tip overlying the atriocaval junction. Limited inspiration seen. Heart size stable. Subsegmental atelectasis or infiltrate at both lung bases. IMPRESSION: 1. Improvement in the right-sided pleural effusion with no sizable pneumothorax.
--- NOTE | 2017-07-30 12:09 | PCN ---
PROCEDURE NOTE PROCEDURE PERFORMED: THORACENTESIS INDICATION: Pleural effusion. DESCRIPTION OF PROCEDURE: A time-out was completed verifying correct patient, procedure, site, positioning , and implant (s) or special equipment if applicable. Ultrasound guidance was used and appropriate fluid pocket was identified and marked. Patient was positioned, prepped and draped in usual sterile fashion. Lidocaine was used to anesthetize the area. A Thoracentesis catheter was introduced into the pleural space and fluid was removed. Blood loss was none. A chest x-ray was ordered to evaluate for pneumothorax. TOTAL FLUID REMOVED: 850 mL. COLOR OF FLUID: Dark turbid yellowish pleural effusion. Fluid was sent for appropriate laboratory tests. Patient tolerated the procedure well and there were no complications Procedure this was done on the right side. This was done with ultrasound marking. No bedside complications. Chest x-ray shows no pneumothorax. MMODL / IJN: [id number] /
[2017-07-30 16:59] LABS: RBC, Body Fluid 1669 /uL
[2017-07-31 02:13] LABS: T. Protein, Body Fluid Source Thoracentesis Fluid; Total Protein, Body Fluid 2590 mg/dL
[2017-07-31 02:37] LABS: Glucose, BF Source Thoracentesis Fluid; LDH, Body Fluid Source Thoracentesis Fluid
== END ==
LOC: PROCWHC3 10:13
PROVIDERS: ATTEND Internal Medicine Critical Care Medicine
DX: C78.2 Secondary malignant neoplasm of pleura (principal); C50.919 Malignant neoplasm of unspecified site of unspecified female breast; J90 Pleural effusion, not elsewhere classified; E11.9 Type 2 diabetes mellitus without complications; Z79.84 Long term (current) use of oral hypoglycemic drugs; E78.5 Hyperlipidemia, unspecified; I47.1 Supraventricular tachycardia; G47.33 Obstructive sleep apnea (adult) (pediatric); Z99.89 Dependence on other enabling machines and devices; F41.9 Anxiety disorder, unspecified; Z79.810 Long term (current) use of selective estrogen receptor modulators (SERMs); Z79.899 Other long term (current) drug therapy; Z88.2 Allergy status to sulfonamides
CPT/HCPCS: 32554; 71010; 76604; 82945; 83615; 84157; 88108; 88305; 88341; 88342; 89050

== ENCOUNTER → 2017-07-30 | Outpatient (CLI) | payer BC ==
--- NOTE | 2017-07-30 11:28 | US ---
EXAMINATION TYPE: US chest DATE OF EXAM: 07/30/2017 COMPARISON: Radiograph 07/25/2017 CLINICAL HISTORY: 52-year-old female J91.8 Pleural effusion. SOB, cough for 3 months, thoracentesis t o follow TECHNIQUE: Multiple sonographic images of the lower right posterior hemithorax for assessment of pleu ral effusion. FINDINGS: EXAM MEASUREMENTS: Right Pleural Effusion fluid pocket: 8.0 cm Right skin surface to fluid distance: 4.2 cm Right side marked for possible thoracentesis outside the dept. Pulmonologists are able to review the images in the patient?s EMR. IMPRESSIONS: A small, small to moderate right pleural effusion. Markings performed.
== END | disposition home or self-care (01) ==
LOC: RADUSWWP 09:51
PROVIDERS: ATTEND Internal Medicine Critical Care Medicine
DX: J90 Pleural effusion, not elsewhere classified (principal)
CPT/HCPCS: 76604

== ENCOUNTER 2017-08-20 09:14 | Inpatient (IN) | payer BC ==
--- NOTE | 2017-08-20 10:05 | ED ---
General Adult HPI - General Chief complaint: Shortness of Breath Stated complaint: ZACH Time Seen by Provider: 08/20/17 09:20 Source: patient, RN notes reviewed Mode of arrival: wheelchair Limitations: no limitations - History of Present Illness Initial comments: This a 52-year-old female with past medical history of breast cancer. Patient' s breast cancer has returned and was found in her lung she states. Patient states she's had pleural effusions that have been drained a couple of times. Patient states she also has ascites but has yet to have that drain. Patient states her difficulty breathing is gotten progressively worse over the last week or so and now it's the point she is so uncomfortable she needed to come in to the emergency department. Patient states she's had a cough but has no sputum production. Patient denies any recent fever chills. Patient denies any chest pain or palpitations. - Related Data Home Medications Medication Instructions Recorded Confirmed Venlafaxine HCl ER [Effexor XR] 150 mg PO DAILY 02/27/14 08/20/17 Tamoxifen Citrate 20 mg PO DAILY 07/26/16 08/20/17 Promethaz-Cod 6.25-10 mg/5 ml 5 ml PO Q8HR PRN 07/02/17 08/20/17 [Phenergan with Codeine] Simvastatin [Zocor] 10 mg PO HS 07/30/17 08/20/17 Furosemide [Lasix] 20 mg PO BID 08/20/17 08/20/17 Loratadine [Claritin] 5 mg PO Q12HR PRN 08/20/17 08/20/17 Previous Rx's Medication Instructions Recorded Famotidine [Pepcid] 20 mg PO BID #60 tab 07/13/17 Metoprolol Tartrate [Lopressor] 50 mg PO BID #60 tab 07/13/17 Allergies Allergy/AdvReac Type Severity Reaction Status Date / Time Sulfa (Sulfonamide Allergy Itching Verified 08/20/17 10:12 Antibiotics) sulfamethoxazole Allergy Itching Verified 08/20/17 10:12 [From Bactrim] trimethoprim [From Bactrim] Allergy Itching Verified 08/20/17 10:12 Review of Systems ROS Statement: Those systems with pertinent positive or pertinent negative responses have been documented in the HPI. ROS Other: All systems not noted in ROS Statement are negative. Past Medical History Past Medical History: Cancer, Diabetes Mellitus, Hyperlipidemia, Hypertension, Skin Disorder, Sleep Apnea/CPAP/BIPAP, Supraventricular Tachycardia (SVT) Additional Past Medical History / Comment(s): Stage IV breast cancer with previous bilateral mastectomy, obstructive sleep apnea, hypertension, hyperlipidemia, anxiety/panic, SVT, diabetes mellitus, fluid on lungs. last chemo 2 weeks ago (08/20/17) History of Any Multi-Drug Resistant Organisms: None Reported Past Surgical History: Breast Surgery Additional Past Surgical History / Comment(s): DOUBLE MASTECTOMY, SINUS SURGERY , wisdom teeth out 2010 Past Anesthesia/Blood Transfusion Reactions: No Reported Reaction Past Psychological History: Anxiety, Panic Disorder Smoking Status: Never smoker Past Alcohol Use History: None Reported Past Drug Use History: None Reported - Past Family History Mother Family Medical History: Cancer Additional Family Medical History / Comment(s): breast CA Father Family Medical History: CVA/TIA General Exam - General Exam Comments Initial Comments: GENERAL: Patient is well-developed and well-nourished. Patient is nontoxic and well- hydrated and is in mild distress. ENT: Neck is soft and supple. No significant lymphadenopathy is noted. Oropharynx is clear. Moist mucous membranes. Neck has full range of motion without eliciting any pain. EYES: The sclera were anicteric and conjunctiva were pink and moist. Extraocular movements were intact and pupils were equal round and reactive to light. Eyelids were unremarkable. PULMONARY: Diminished breath sounds in the right base. CARDIOVASCULAR: There is a regular rate and rhythm without any murmurs gallops or rubs. ABDOMEN: Patient's abdomen is distended consistent with ascites. No palpable organomegaly was noted. There is no palpable pulsatile mass. SKIN: Skin is clear with no lesions or rashes and otherwise unremarkable. NEUROLOGIC: Patient is alert and oriented x3. Cranial nerves II through XII are grossly intact. Motor and sensory are also intact. Normal speech, volume and content. Symmetrical smile. MUSCULOSKELETAL: Normal extremities with adequate strength and full range of motion. 2+ edema LYMPHATICS: No significant lymphadenopathy is noted PSYCHIATRIC: Normal psychiatric evaluation. Normal interpersonal interactions appears functionally intact in deals appropriately with others. No signs of depression. No signs of anxiety. Limitations: no limitations Course Vital Signs 08/20/17 08/20/17 08/20/17 09:20 09:28 10:20 Temperature 98.0 F Pulse Rate 111 H 114 H 114 H Respiratory 20 22 18 Rate Blood Pressure 130/83 125/75 O2 Sat by Pulse 95 95 Oximetry 08/20/17 08/20/17 12:00 13:12 Temperature Pulse Rate 114 H 119 H Respiratory 18 18 Rate Blood Pressure 138/88 121/81 O2 Sat by Pulse 96 95 Oximetry Medical Decision Making - Medical Decision Making EKG shows sinus tachycardia at 112 bpm NJ interval 132 QRS is 66 QT interval 3: 30 QTC is 450. EKG shows no ST segment elevation or depression or T wave abnormalities are noted CT showed ascites minimal pleural effusion and no PE. - Lab Data Result diagrams: 08/20/17 10:08 08/20/17 10:08 Lab Results 08/20/17 08/20/17 08/20/17 Range/Units 10:08 10:08 10:08 WBC 9.0 (3.8-10.6) k/uL RBC 5.01 (3.80-5.40) m/uL Hgb 14.7 (11.4-16.0) gm/dL Hct 47.8 H (34.0-46.0) % MCV 95.4 (80.0-100.0) fL MCH 29.4 (25.0-35.0) pg MCHC 30.9 L (31.0-37.0) g/dL RDW 17.3 H (11.5-15.5) % Plt Count 147 L (150-450) k/uL Neutrophils % 62 % Lymphocytes % 23 % Monocytes % 10 % Eosinophils % 1 % Basophils % 1 % Neutrophils # 5.6 (1.3-7.7) k/uL Lymphocytes # 2.1 (1.0-4.8) k/uL Monocytes # 0.9 (0-1.0) k/uL Eosinophils # 0.1 (0-0.7) k/uL Basophils # 0.1 (0-0.2) k/uL Hypochromasia Slight Anisocytosis Slight Macrocytosis Slight PT (9.0-12.0) sec INR (<1.2) APTT (22.0-30.0) sec D-Dimer (<0.60) mg/L FEU Sodium 136 L (137-145) mmol/L Potassium 4.0 (3.5-5.1) mmol/L Chloride 103 (98-107) mmol/L Carbon Dioxide 25 (22-30) mmol/L Anion Gap 8 mmol/L BUN 17 (7-17) mg/dL Creatinine 0.95 (0.52-1.04) mg/dL Est GFR (MDRD) Af Amer >60 (>60 ml/min/1.73 sqM) Est GFR (MDRD) Non-Af >60 (>60 ml/min/1.73 sqM) Glucose 111 H (74-99) mg/dL Calcium 8.2 L (8.4-10.2) mg/dL Magnesium 1.5 L (1.6-2.3) mg/dL Total Bilirubin 1.4 H (0.2-1.3) mg/dL AST 190 H (14-36) U/L ALT 106 H (9-52) U/L Alkaline Phosphatase 342 H (38-126) U/L Total Creatine Kinase 51 (30-135) U/L CK-MB (CK-2) 1.1 (0.0-2.4) ng/mL CK-MB (CK-2) Rel Index 2.2 Troponin I <0.012 (0.000-0.034) ng/mL NT-Pro-B Natriuret Pep pg/mL Total Protein 6.2 L (6.3-8.2) g/dL Albumin 2.4 L (3.5-5.0) g/dL 08/20/17 08/20/17 Range/Units 10:08 10:08 WBC (3.8-10.6) k/uL RBC (3.80-5.40) m/uL Hgb (11.4-16.0) gm/dL Hct (34.0-46.0) % MCV (80.0-100.0) fL MCH (25.0-35.0) pg MCHC (31.0-37.0) g/dL RDW (11.5-15.5) % Plt Count (150-450) k/uL Neutrophils % % Lymphocytes % % Monocytes % % Eosinophils % % Basophils % % Neutrophils # (1.3-7.7) k/uL Lymphocytes # (1.0-4.8) k/uL Monocytes # (0-1.0) k/uL Eosinophils # (0-0.7) k/uL Basophils # (0-0.2) k/uL Hypochromasia Anisocytosis Macrocytosis PT 12.2 H (9.0-12.0) sec INR 1.2 H (<1.2) APTT 51.0 H (22.0-30.0) sec D-Dimer 9.08 H (<0.60) mg/L FEU Sodium (137-145) mmol/L Potassium (3.5-5.1) mmol/L Chloride (98-107) mmol/L Carbon Dioxide (22-30) mmol/L Anion Gap mmol/L BUN (7-17) mg/dL Creatinine (0.52-1.04) mg/dL Est GFR (MDRD) Af Amer (>60 ml/min/1.73 sqM) Est GFR (MDRD) Non-Af (>60 ml/min/1.73 sqM) Glucose (74-99) mg/dL Calcium (8.4-10.2) mg/dL Magnesium (1.6-2.3) mg/dL Total Bilirubin (0.2-1.3) mg/dL AST (14-36) U/L ALT (9-52) U/L Alkaline Phosphatase (38-126) U/L Total Creatine Kinase (30-135) U/L CK-MB (CK-2) (0.0-2.4) ng/mL CK-MB (CK-2) Rel Index Troponin I (0.000-0.034) ng/mL NT-Pro-B Natriuret Pep 134 pg/mL Total Protein (6.3-8.2) g/dL Albumin (3.5-5.0) g/dL Disposition Clinical Impression: Dyspnea, Pleural effusion, Ascites Disposition: ADMITTED IP TO THIS HOSP Referrals: Eladio Tobar MD [Primary Care Provider] - 1-2 days Time of Disposition: 13:39
[2017-08-20 10:48] LABS: Anisocytosis Slight; Basophils # (A) 0.1 k/uL (0-0.2); Basophils % (A) 1 %; CH 29.1; CHCM 30.7; Eosinophils # (A) 0.1 k/uL (0-0.7); Eosinophils % (A) 1 %; HCT 47.8 % (34.0-46.0); HDW 2.29; HGB 14.7 gm/dL (11.4-16.0); Hypochromasia Slight; Luc % (Auto) 3; Lymphocytes # (A) 2.1 k/uL (1.0-4.8); Lymphocytes % (A) 23 %; MCH 29.4 pg (25.0-35.0); MCHC 30.9 g/dL (31.0-37.0); MCV 95.4 fL (80.0-100.0); Macrocytosis Slight; Mean Platelet Volume 9.6; Monocytes # (A) 0.9 k/uL (0-1.0); Monocytes % (A) 10 %; Neutrophils # (A) 5.6 k/uL (1.3-7.7); Neutrophils % (A) 62 %; RBC 5.01 m/uL (3.80-5.40); RDW 17.3 % (11.5-15.5); WBC (Perox) 9.12
[2017-08-20 10:58] LABS: Creatine Kinase 51 U/L (30-135)
[2017-08-20 11:06] LABS: ALT 106 U/L (9-52); AST 190 U/L (14-36); Alkaline Phosphatase 342 U/L (38-126); Anion Gap 8 mmol/L; Blood Urea Nitrogen 17 mg/dL (7-17); Calcium 8.2 mg/dL (8.4-10.2); Carbon Dioxide 25 mmol/L (22-30); Chloride 103 mmol/L (98-107); Glucose 111 mg/dL (74-99); Magnesium 1.5 mg/dL (1.6-2.3); Non-African American GFR(MDRD) >60 (>60 ml/min/1.73 sqM); Sodium 136 mmol/L (137-145); Total Bilirubin 1.4 mg/dL (0.2-1.3); Total Protein 6.2 g/dL (6.3-8.2)
--- NOTE | 2017-08-20 11:09 | XR ---
EXAMINATION TYPE: XR chest 2V DATE OF EXAM: 08/20/2017 COMPARISON: 07/30/2017 INDICATION: Difficulty breathing TECHNIQUE: Frontal and lateral views of the chest are obtained. FINDINGS: The heart size is normal. The pulmonary vasculature is somewhat prominent. There is an infiltrate at the right base. A minimal right pleural effusion may be present. Port is pr esent on the right with the tip in the proximal right atrium. Surgical clips are within the left axil ria region. Some right breast surgical clips may be present. IMPRESSION: 1. Right lower lobe infiltrate and minimal right pleural effusion, developing from comparison. 2. Correlate for volume overload
[2017-08-20 11:12] LABS: Creatine Kinase MB 1.1 ng/mL (0.0-2.4); Troponin I <0.012 ng/mL (0.000-0.034)
[2017-08-20 11:13] LABS: INR 1.2 (<1.2); Prothrombin Time 12.2 sec (9.0-12.0)
[2017-08-20] MEDS ORDERED: RX INFO: IV CONTRAST WAS GIVEN 1 EACH MISC MISCELLANE PRN (11:27)
--- NOTE | 2017-08-20 13:22 | CT ---
CT CHEST FOR PULMONARY EMBOLISM. EXAMINATION TYPE: CT chest angio for PE DATE OF EXAM: 08/20/2017 INDICATION: SOB CT DLP: 391.9 mGycm, Automated exposure control for dose reduction was used. CONTRAST: Patient injected with a total of 80 mL of Omnipaque 350. Tubing blew on the first injection and additional scan images were then obtained following the second injection COMPARISON: NONE TECHNIQUE: CT of the chest is performed on a spiral scan at 2 mm thick sections. Study is performed with intravenous contrast timed for evaluation for pulmonary embolism. This will limit additional po rtions of the evaluation. 3-D MIP images reconstructed by the technologist are reviewed on the compu ter in the coronal and sagittal planes. FINDINGS: No persistent filling defects are evident to suggest an acute pulmonary embolism. Some scattered increased lung markings are within the right middle lobe. No mediastinal or hilar adenopathy enlarged by CT criteria is evident. The ascending aorta diameter at the level of the main pulmonary artery is 3.3 cm. The main pulmonary artery diameter at the bifur cation is 2.7 cm. There is a small right pleural effusion. Very minimal left pleural effusion may be present. Limited CT sections are obtained through the upper abdomen. Ascites is present. There is some heterog eneity within the liver. IMPRESSIONS: 1. No acute pulmonary embolism. 2. Small right and minimal left pleural effusion. 3. Ascites 4. Mild scattered infiltrate within right middle lobe. Correlate for atelectasis or pneumonia.
[2017-08-20] MEDS ORDERED: SODIUM CHLORIDE 0.9% 1,000 ML IV ONE (13:39)
[2017-08-20] MEDS ORDERED: LORATADINE 10 MG TAB PO PRN (16:45)
[2017-08-20] MEDS ORDERED: FUROSEMIDE 20 MG TAB PO SCH (17:00)
[2017-08-20 17:51] LABS: Glucose,Whole Blood 110 mg/dL (75-99)
[2017-08-20] MEDS: METOPROLOL TARTRATE 50 MG TAB PO SCH (19:08)
[2017-08-20] MEDS: FUROSEMIDE 10 MG/ML 2 ML VIAL IV SCH (19:08)
--- NOTE | 2017-08-20 19:23 | P.CNPUL ---
History of Present Illness Consult date: 08/20/17 Chief complaint: Shortness of breath History of present illness: 52-year-old female patient with known history of metastatic breast cancer was undergone bilateral mastectomy. The patient is also morbidly obese and she has obstructive sleep apnea maintained on CPAP therapy. The patient was furthermore diagnosed having pulmonary involvement with metastatic breast cancer. The patient had a right-sided pleural effusion that was drained and approximately a liter of fluid was removed and the fluid was positive for breast cancer. The patient also known to have some noted that his throughout the lung bedoya bilaterally and the largest nodule is measuring 7 mm in size and these are noncalcified and I think this is part of her metastatic disease. The left pleural space is clean. The patient has no pericardial effusion. [facility]. I think the plan was to start the patient on Herceptin with possibly an alternative chemotherapeutic agent. She was in my office and she was complaining of worsening shortness of breath. Her abdominal girth and dimensions were also enlarging. I performed a chest x-ray and there was no significant the recommendation of right-sided pleural effusion. Based on that, I sent this patient for an outpatient ultrasound the abdomen looking for ascites. The ultrasound was done this morning and the patient was found to have a 8 cm right-sided pleural effusion and the area was marked for thoracentesis. In addition there was small amount of ascites noted. The patient furthermore came into the emergency department she was hospitalized regarding her shortness of breath. As part of her workup a CTA of the chest was repeated and it showed no evidence of any acute pulmonary embolism, there was a small to moderate-sized right-sided pleural effusion, elevation of left hemidiaphragm, ascites and atelectasis in the right middle lobe. Echocardiogram from June 2017 shows no evidence of any pericardial effusion and the patient's left ventricular ejection fraction is well- preserved. Blood work shows no acute abnormalities. She has increased lower extremity edema in the patient's renal function is stable and normal and the patient has a component of hypomagnesemia, and hypoalbuminemia. LFTs are abnormal related to metastatic liver involvement with breast cancer. Review of Systems Constitutional: Reports poor appetite, Reports weight loss Eyes: denies blurred vision, denies bulging eye, denies decreased vision Ears: deny: decreased hearing, ear discharge, earache Ears, nose, mouth and throat: Denies headache, Denies sore throat Cardiovascular: Reports dyspnea on exertion Respiratory: Reports cough, Reports dyspnea, Reports sleep apnea, worsening shortness of breath with increase in abdominal girth Gastrointestinal: Denies abdominal pain, Denies diarrhea, Denies nausea, Denies vomiting, increased abdominal girth Genitourinary: Denies dysuria, Denies hematuria Musculoskeletal: absent: ankle pain, ankle stiffness, ankle swelling bilateral Integumentary: Denies pruritus, Denies rash Neurological: Denies numbness, Denies weakness Psychiatric: Denies anxiety, Denies depression Endocrine: Denies fatigue, Denies weight change Past Medical History Past Medical History: Cancer, Diabetes Mellitus, Hyperlipidemia, Hypertension, Skin Disorder, Sleep Apnea/CPAP/BIPAP, Supraventricular Tachycardia (SVT) Additional Past Medical History / Comment(s): Stage IV breast cancer with previous bilateral mastectomy and the patient has liver, bone, and lung involvement., obstructive sleep apnea, hypertension, hyperlipidemia, anxiety/ panic, SVT, diabetes mellitus, malignant pleural effusion, ascites History of Any Multi-Drug Resistant Organisms: None Reported Past Surgical History: Breast Surgery Additional Past Surgical History / Comment(s): Bilateral MASTECTOMY 2012, SINUS SURGERY, wisdom teeth out 2010, x2 thoracentesis Past Anesthesia/Blood Transfusion Reactions: No Reported Reaction Smoking Status: Never smoker - Past Family History Mother Family Medical History: Cancer Additional Family Medical History / Comment(s): breast CA Father Family Medical History: CVA/TIA Medications and Allergies Home Medications Medication Instructions Recorded Confirmed Type Venlafaxine HCl ER [Effexor XR] 150 mg PO DAILY 02/27/14 08/20/17 History Tamoxifen Citrate 20 mg PO DAILY 07/26/16 08/20/17 History Promethaz-Cod 6.25-10 mg/5 ml 5 ml PO Q8HR PRN 07/02/17 08/20/17 History [Phenergan with Codeine] Famotidine [Pepcid] 20 mg PO BID #60 tab 07/13/17 08/20/17 Rx Metoprolol Tartrate [Lopressor] 50 mg PO BID #60 tab 07/13/17 08/20/17 Rx Simvastatin [Zocor] 10 mg PO HS 07/30/17 08/20/17 History Furosemide [Lasix] 20 mg PO BID 08/20/17 08/20/17 History Loratadine [Claritin] 5 mg PO Q12HR PRN 08/20/17 08/20/17 History Allergies Allergy/AdvReac Type Severity Reaction Status Date / Time Sulfa (Sulfonamide Allergy Itching Verified 08/20/17 10:12 Antibiotics) sulfamethoxazole Allergy Itching Verified 08/20/17 10:12 [From Bactrim] trimethoprim [From Bactrim] Allergy Itching Verified 08/20/17 10:12 Physical Exam Vitals: Vital Signs Temp Pulse Pulse Resp BP BP Pulse Ox 08/20/17 15:00 98.2 F 127 H 24 132/90 95 08/20/17 13:12 119 H 18 121/81 95 08/20/17 12:00 114 H 18 138/88 96 08/20/17 10:20 114 H 18 125/75 95 08/20/17 09:28 114 H 22 08/20/17 09:20 98.0 F 111 H 20 130/83 95 Intake and Output 08/20/17 08/20/17 08/20/17 06:59 14:59 22:59 Other: Weight 103.419 kg Patient Weight 08/21/17 06:59 Weight 103.419 kg Obese, calm and comfortable likely distress. Head is atraumatic normocephalic. Neck is soft and there is no JVDs no goiter or neck masses. There is significant crowding of the posterior oropharynx and a metabolic S4. Lung sounds are diminished in the right lung bases otherwise clear. There is no wheezes or rhonchi any crackles.The breath sounds are diminished in the right lung base along with that there is some dullness to percussion. Cardiac exam revealed the PMI to be normally situated and sized. The rhythm was regular and no extrasystoles were noted during several minutes of auscultation. The first and second heart sounds were normal and physiologic splitting of the second heart sound was noted. There were no murmurs, rubs, clicks, or gallops.Abdominal exam revealed normal bowel sounds. The abdomen was soft, non- tender, and without masses, organomegaly, or appreciable enlargement of the abdominal aorta.Examination of the extremities revealed easily palpable radial, femoral and pedal pulses. There was no cyanosis, clubbing and there is bilateral lower extremities edema.. Skin is within normal there is no cellulitis or any wounds or ulcers. Skeletal system is negative for any arthritis or joint deformities. Neurologic exam the patient going 3 and the patient has no focal neurological deficit and the patient has a nonfocal exam. Results - Laboratory Findings CBC and BMP: 08/20/17 10:08 08/20/17 10:08 PT/INR, D-dimer PT 12.2 sec (9.0-12.0) H 08/20/17 10:08 INR 1.2 (<1.2) H 08/20/17 10:08 D-Dimer 9.08 mg/L FEU (<0.60) H 08/20/17 10:08 Abnormal lab findings: Abnormal Labs 08/20/17 08/20/17 08/20/17 10:08 10:08 10:08 Hct 47.8 H MCHC 30.9 L RDW 17.3 H Plt Count 147 L PT 12.2 H INR 1.2 H APTT 51.0 H D-Dimer 9.08 H Sodium 136 L Glucose 111 H POC Glucose (mg/dL) Calcium 8.2 L Magnesium 1.5 L Total Bilirubin 1.4 H AST 190 H ALT 106 H Alkaline Phosphatase 342 H Total Protein 6.2 L Albumin 2.4 L 08/20/17 17:33 Hct MCHC RDW Plt Count PT INR APTT D-Dimer Sodium Glucose POC Glucose (mg/dL) 110 H Calcium Magnesium Total Bilirubin AST ALT Alkaline Phosphatase Total Protein Albumin - Diagnostic Findings CT scan - chest: image reviewed Assessment and Plan Plan: Assessment 1 progressive dyspnea secondary to pulmonary metastasis from metastatic breast cancer. The patient has a malignant right-sided pleural effusion which is moderate in size in addition to multinodular involvement of the lungs, possibly secondary to parenchymal lung metastases. No evidence of any pulmonary embolism. Abdomen is distended with some mild ascites which probably is contributing to her shortness of breath. 2 chronic dyspnea and cough secondary to above 3 metastatic breast cancer with skeletal, liver, and lung involvement. The patient is under the care of Dr. dueñas, scans instituted. The patient is being considered for Herceptin. 4 abdominal distention/ascites 5 hypertension 6 hyperlipidemia 7 anxiety/panic 8 history of SVT. 9 diabetes mellitus 10 increased lower extremity edema 11 obesity 12 obstructive sleep apnea Plan The patient would have a CAT scan of the abdomen and pelvis looking for any significant ascites that can be potentially drainable. We'll put a consultation for interventional radiology should there be any significant ascites that can be drained. We'll start the patient on Lasix 20 mg IV push every 12 hours. We will consider a thoracentesis later stage if the patient remains short of breath. The pleural effusion is small to moderate in size and it malignant based on the previous evaluation. Long-term prognosis poor baseline above-mentioned.
[2017-08-20] MEDS: FAMOTIDINE 20 MG TAB PO SCH (20:23)
[2017-08-20] MEDS: ALPRAZolam 0.25 MG TAB PO PRN (20:23)
[2017-08-20] MEDS: ATORVASTATIN 10 MG TAB PO SCH (20:23)
[2017-08-21 06:29] LABS: Basophils # (A) 0.1 k/uL (0-0.2); Basophils % (A) 1 %; CH 29.8; Eosinophils # (A) 0.1 k/uL (0-0.7); Eosinophils % (A) 1 %; HCT 40.4 % (34.0-46.0); HDW 2.25; HGB 12.5 gm/dL (11.4-16.0); Hypochromasia Slight; Luc # (Auto) 0.24; Luc % (Auto) 3; Lymphocytes # (A) 1.5 k/uL (1.0-4.8); Lymphocytes % (A) 19 %; MCV 96.8 fL (80.0-100.0); Mean Platelet Volume 8.9; Monocytes # (A) 0.7 k/uL (0-1.0); Monocytes % (A) 9 %; Neutrophils # (A) 5.3 k/uL (1.3-7.7); Neutrophils % (A) 68 %; RBC 4.18 m/uL (3.80-5.40); RDW 15.7 % (11.5-15.5); WBC 7.8 k/uL (3.8-10.6)
[2017-08-21 06:46] LABS: ALT 89 U/L (9-52); AST 167 U/L (14-36); Alkaline Phosphatase 257 U/L (38-126); Anion Gap 3 mmol/L; Blood Urea Nitrogen 17 mg/dL (7-17); Carbon Dioxide 27 mmol/L (22-30); Chloride 105 mmol/L (98-107); Glucose 132 mg/dL (74-99); Magnesium 1.4 mg/dL (1.6-2.3); Non-African American GFR(MDRD) >60 (>60 ml/min/1.73 sqM); Potassium 3.6 mmol/L (3.5-5.1); Sodium 135 mmol/L (137-145); Total Protein 4.9 g/dL (6.3-8.2)
--- NOTE | 2017-08-21 07:31 | HP ---
HISTORY AND PHYSICAL DATE OF SERVICE: 08/20/2017. CHIEF COMPLAINT: Shortness of breath and abdomen distention. HISTORY OF PRESENT ILLNESS: This is a 52-year-old woman with a past history of breast cancer with metastasis also had a pleural effusion. Patient had underwent a thoracocentesis by Dr. Tracy. Currently patient complaining of distention, shortness of breath, chest discomfort, and the patient came to [facility] and admitted for further evaluation and treatment. The ultrasound showed only small amount ascites but however the patient does have some significant abdominal distention at this time. The patient also has pulmonary metastasis contributing to the shortness of breath as well. The patient is followed by Dr. Tobar in the outpatient setting. PAST MEDICAL HISTORY: History of diabetes and hypertension, hyperlipidemia, history of sleep apnea, history of tachycardia. MEDICATIONS: Medications prior to admission include home medications are: 1. Lasix 20 mg p.o. b.i.d. 2. Effexor XR 150 mg p.o. daily. 3. Tamoxifen 10 mg b.i.d. 4. Zocor 10 mg q.h.s. 5. Phenergan q.8h p.r.n. 6. Lopressor 50 mg b.i.d. 7. Claritin 5 mg p.o. b.i.d. 8. Pepcid 20 mg b.i.d. ALLERGIES: SULFA AND BACTRIM. FAMILY HISTORY: History of breast cancer in the family. SOCIAL HISTORY: No history of smoking. No history of alcohol intake. REVIEW OF SYSTEMS: ENT: No diminished vision. No diminished hearing. Cardio system: No angina or palpitations. Respiratory: As mentioned earlier. GI as mentioned earlier. : No dysuria. Nervous system: No numbness or weakness. Allergy/Immunology: No asthma or hayfever. Musculoskeletal as mentioned earlier. Hematology/oncology: No history of anemia. Endocrine: As mentioned earlier. Constitutional: As mentioned earlier. Dermatology: Negative. Rheumatology: Negative. Psychiatric: As mentioned earlier. PHYSICAL EXAMINATION: Alert and oriented x3, the pulse is 127, blood pressure is 130/90, respiration 24, temperature 98.2, pulse ox 94% on room air HEENT: Conjunctivae normal. Oral mucosa moist. Neck is obese. No JVD. No carotid enlargement. Cardiovascular system : S1, S2 muffled. No S3, no S4. Respiratory: Breath sounds diminished in the bases especially in the right base. No rhonchi. No crackles. ABDOMEN: Soft, obese. Abdominal wall edema and as well as some dullness in the flanks also present. Minimal bilateral leg edema. Nervous system: Higher functions as mentioned earlier. Moves all 4 limbs. No focal motor or sensory deficits. Lymphatics: No lymph nodes palpable in the neck, axillae or groin. Skin: No ulcer, rash or bleeding. LAB: Hemoglobin is 14.7, white count is 9. INR is 1.2. D-dimer is 9.08. Magnesium 1.5. AST 106, albumin 2.4, chest x-ray which was evaluated shows diffuse lesions on the right side. ASSESSMENT: 1. Shortness of breath possibly multifactorial secondary to pleural effusion as well as advanced pulmonary metastasis. 2. Metastatic breast cancer. 3. Ascites and abdominal wall edema. 4. Diabetes type 2. 5. Hypertension. 6. Hyperlipidemia. 7. Sleep apnea. 8. tachycardia. 9. Sleep apnea. 10.Anxiety/panic disorder. RECOMMENDATION AND DISCUSSION: In this 52-year-old woman who presented with multiple medical issues, we will monitor the patient closely, continue the current management and symptomatic treatment. Otherwise Dr. Tracy's input appreciated. Ultrasound will be repeated and be consulted if there is no fluid to be drained. Otherwise we will continue to monitor. Prognosis is guarded because of multiple complex medical issues. Further recommendations to follow. Continue rest of medications. DVT prophylaxis. Discussed with the patient. Discussed with staff. CHRISTINA / NICOLA: [id number] / GORDON
[2017-08-21] MEDS: FUROSEMIDE 10 MG/ML 2 ML VIAL IV SCH ×2 (08:46→21:41)
[2017-08-21] MEDS: FAMOTIDINE 20 MG TAB PO SCH ×2 (08:46→21:41)
[2017-08-21] MEDS: VENLAFAXINE HCL ER 150 MG CAP PO SCH (08:47)
[2017-08-21] MEDS: TAMOXIFEN 10 MG TAB PO SCH (08:47)
[2017-08-21] MEDS: METOPROLOL TARTRATE 50 MG TAB PO SCH ×2 (08:47→21:40)
[2017-08-21] MEDS: IOHEXOL 350 MG/ML 25 ML BOTTLE (ORAL USE) PO PRN ×2 (11:05→12:23)
--- NOTE | 2017-08-21 11:44 | P.PN ---
<Ct Stanley M - Last Filed: 08/21/17 11:34> Subjective Progress Note Date: 08/21/17 Principal diagnosis: progressive dyspnea secondary to pulmonary metastasis from metastatic breast cancer. Small right-sided pleural effusion 52-year-old female patient with known history of metastatic breast cancer was undergone bilateral mastectomy. The patient is also morbidly obese and she has obstructive sleep apnea maintained on CPAP therapy. The patient was furthermore diagnosed having pulmonary involvement with metastatic breast cancer. The patient had a right-sided pleural effusion that was drained and approximately a liter of fluid was removed and the fluid was positive for breast cancer. The patient also known to have some noted that his throughout the lung bedoya bilaterally and the largest nodule is measuring 7 mm in size and these are noncalcified and I think this is part of her metastatic disease. The left pleural space is clean. The patient has no pericardial effusion. [facility] onc[facility]. I think the plan was to start the patient on Herceptin with possibly an alternative chemotherapeutic agent. She was in my office and she was complaining of worsening shortness of breath. Her abdominal girth and dimensions were also enlarging. I performed a chest x-ray and there was no significant the recommendation of right-sided pleural effusion. Based on that, I sent this patient for an outpatient ultrasound the abdomen looking for ascites. The ultrasound was done this morning and the patient was found to have a 8 cm right-sided pleural effusion and the area was marked for thoracentesis. In addition there was small amount of ascites noted. The patient furthermore came into the emergency department she was hospitalized regarding her shortness of breath. As part of her workup a CTA of the chest was repeated and it showed no evidence of any acute pulmonary embolism, there was a small to moderate-sized right-sided pleural effusion, elevation of left hemidiaphragm, ascites and atelectasis in the right middle lobe. Echocardiogram from June 2017 shows no evidence of any pericardial effusion and the patient's left ventricular ejection fraction is well- preserved. Blood work shows no acute abnormalities. She has increased lower extremity edema in the patient's renal function is stable and normal and the patient has a component of hypomagnesemia, and hypoalbuminemia. LFTs are abnormal related to metastatic liver involvement with breast cancer. On 08/21/2017 patient seen oncology floor and follow-up. She states her breathing as slightly improved, she was able to sleep in bed last night on her right side. She is diuresing well on Lasix, she has lost around 3-1/2 kg since admission. Her bilateral lower extremity edema has improved. Lung sounds are clear with diminished air entry on the right lower lobe, positive dullness to percussion over right lower lobe. remains on oxygen at 2 L per nasal cannula with O2 sat around 95%. Low-grade fever this morning with T-max of 100.3F. she denies any significant chest congestion, or sputum production. Objective - Vital Signs Vital signs: Vital Signs Temp 100.3 F H 08/21/17 07:19 Pulse 97 08/21/17 09:35 Resp 16 08/21/17 09:35 BP 115/75 08/21/17 07:19 Pulse Ox 95 08/21/17 07:19 Intake & Output 08/20/17 08/21/17 08/21/17 18:59 06:59 18:59 Intake Total 1070 Output Total 225 Balance 1070 -225 Weight 103.419 kg 109 kg Intake: Oral 1070 Output: Urine 225 Other: # Voids 1 1 - Exam GENERAL EXAM: Alert, active, comfortable in no apparent distress. HEAD: Normocephalic. EYES: Normal reaction of pupils, equal size. NOSE: Clear with pink turbinates. THROAT: No erythema or exudates. NECK: No masses, no JVD. CHEST: No chest wall deformity. LUNGS: diminished over right lung base with dullness to percussion over right posterior lower lobe. CVS: S1 and S2 normal with no audible mumurs, regular rhythm. ABDOMEN: No hepatosplenomegaly, normal bowel sounds, no guarding or rigidity. abdomen is large, soft, nontender SPINE: No scoliosis or deformity SKIN: No rashes CENTRAL NERVOUS SYSTEM: No focal deficits, tone is normal in all 4 extremities. - Labs CBC & Chem 7: 08/21/17 06:10 08/21/17 06:10 Labs: Abnormal Lab Results - Last 24 Hours (Table) 08/20/17 08/21/17 08/21/17 Range/Units 17:33 06:10 06:10 RDW 15.7 H (11.5-15.5) % Sodium 135 L (137-145) mmol/L Glucose 132 H (74-99) mg/dL POC Glucose (mg/dL) 110 H (75-99) mg/dL Calcium 7.0 L (8.4-10.2) mg/dL Magnesium 1.4 L (1.6-2.3) mg/dL AST 167 H (14-36) U/L ALT 89 H (9-52) U/L Alkaline Phosphatase 257 H (38-126) U/L Total Protein 4.9 L (6.3-8.2) g/dL Albumin 1.8 L (3.5-5.0) g/dL Assessment and Plan Plan: 1 progressive dyspnea secondary to pulmonary metastasis from metastatic breast cancer. The patient has a malignant right-sided pleural effusion which is moderate in size in addition to multinodular involvement of the lungs, possibly secondary to parenchymal lung metastases. No evidence of any pulmonary embolism. Abdomen is distended with some mild ascites which probably is contributing to her shortness of breath. 2 chronic dyspnea and cough secondary to above 3 metastatic breast cancer with skeletal, liver, and lung involvement. The patient is under the care of Dr. dueñas, scans instituted. The patient is being considered for Herceptin. 4 abdominal distention/ascites 5 hypertension 6 hyperlipidemia 7 anxiety/panic 8 history of SVT. 9 diabetes mellitus 10 increased lower extremity edema 11 obesity 12 obstructive sleep apnea Plan Patient has responded well to IV Lasix, she has lost 3-1/2 kg since admission, bilateral lower extremity edema has improved, as well as the patient's dyspnea. The patient Will have a CAT scan of the abdomen and pelviswith oral contrast today to identify any significant ascites that can be potentially drainable. We 'll put a consultation for interventional radiology should there be any significant ascites that can be drained. We will consider a thoracentesis later stage if the patient remains short of breath. The pleural effusion is small to moderate in size and it malignant based on the previous evaluation. Long-term prognosis poor baseline above-mentioned. I performed a history & physical examination of the patient and discussed their management with my nurse practitioner, Ct Stanley. I reviewed the nurse practitioner's note and agree with the documented findings and plan of care. lungs sounds are clear diminished over right posterior lower lobe. Positive dullness to percussion. The amount of pleural effusion is small to moderate in size, no thoracentesis is indicated at this time. Patient is responding well to Lasix.I attest the documentation by the nurse practitioner Time with Patient: Less than 30 <Carolina Tracy - Last Filed: 08/21/17 12:03> Objective - Vital Signs Vital signs: Vital Signs Temp 100.3 F H 08/21/17 07:19 Pulse 97 08/21/17 09:35 Resp 16 08/21/17 09:35 BP 115/75 08/21/17 07:19 Pulse Ox 95 08/21/17 07:19 Intake & Output 08/20/17 08/21/17 08/21/17 18:59 06:59 18:59 Intake Total 1070 Output Total 225 Balance 1070 -225 Weight 103.419 kg 109 kg Intake: Oral 1070 Output: Urine 225 Other: # Voids 1 1 - Labs CBC & Chem 7: 08/21/17 06:10 08/21/17 06:10 Labs: Abnormal Lab Results - Last 24 Hours (Table) 08/20/17 08/21/17 08/21/17 Range/Units 17:33 06:10 06:10 RDW 15.7 H (11.5-15.5) % Sodium 135 L (137-145) mmol/L Glucose 132 H (74-99) mg/dL POC Glucose (mg/dL) 110 H (75-99) mg/dL Calcium 7.0 L (8.4-10.2) mg/dL Magnesium 1.4 L (1.6-2.3) mg/dL AST 167 H (14-36) U/L ALT 89 H (9-52) U/L Alkaline Phosphatase 257 H (38-126) U/L Total Protein 4.9 L (6.3-8.2) g/dL Albumin 1.8 L (3.5-5.0) g/dL Assessment and Plan Plan: This is a joint evaluation that was done along with an metal finish inspector sugar. The patient is diuresing well. Awaiting a CAT scan of the abdomen. We'll consider paracentesis if there is a significant ascites. If not, we'll consider a repeat right lung thoracentesis to give this patient some symptomatically. We' ll continue to follow.
[2017-08-21] MEDS ORDERED: Magnesium Replacement Protocol 1 EACH MISC MISCELLANE PRN (15:06)
[2017-08-21] MEDS ORDERED: Potassium Replacement Protocol 1 EACH MISC MISCELLANE PRN (15:08)
[2017-08-21] MEDS: ALPRAZolam 0.25 MG TAB PO PRN (15:44)
--- NOTE | 2017-08-21 15:44 | PN ---
HISTORY AND PHYSICAL DATE OF SERVICE: 08/21/2017 This 52-year-old woman was admitted with generalized swelling and as well as shortness of breath because of significant pleural effusion, ascites, being closely monitored at this time. Dr. Tracy is evaluating pleural effusion for possible thoracocentesis. Ascites seems to be [id number] in nature and not necessitating any aspiration or any paracentesis at this time. Otherwise the patient also has significant metastatic lesions of the lung also. PAST MEDICAL HISTORY: Reviewed. REVIEW OF SYSTEMS: CARDIOVASCULAR: No angina or palpitations. RESPIRATORY: As mentioned earlier. GI: No nausea. : No dysuria. NERVOUS SYSTEM: No numbness or weakness. ALLERGY/IMMUNOLOGY: No asthma or hayfever. MUSCULOSKELETAL: As mentioned earlier. CURRENT MEDICATIONS: Are reviewed and include: 1. Xanax 0.5 q.8h p.r.n. 2. Lipitor 10 mg p.o. daily. 3. Pepcid 20 mg b.i.d. 4. Lasix 20 mg IV b.i.d. 5. Heparin protocol. 6. Claritin. 7. Lopressor 50 mg p.o. b.i.d. 8. Nolvadex. 9. Flexeril. PHYSICAL EXAM: Patient is alert, oriented x3. Pulse is 108, blood pressure 115/76, respirations 17, temperature 100.3, pulse ox 95% on 2 L. HEENT: Conjunctivae normal. Oral mucosa moist. Neck is no jugular venous distention. No carotid bruit. No lymph node enlargement. CARDIOVASCULAR: S1, S2. No S3, no S4. RESPIRATORY: Breath sounds diminished at the bases. A few scattered rhonchi and crackles. ABDOMEN: Soft, obese. Abdominal wall edema present. Ascites present. LEGS: Bilateral leg edema. NERVOUS SYSTEM: Higher functions as mentioned earlier. Moves all four limbs. No focal deficits. LYMPHATICS: No lymphadenopathy in the neck, axillae or groin. SKIN: No ulcers, rash or bleeding. LAB: CBC within normal limits. INR 1.2. Sodium is 135. Magnesium is 1.4. Albumin is 1.8. ASSESSMENT: 1. Shortness of breath possibly multifactorial secondary to pleural effusion as well as advanced pulmonary metastasis. 2. Metastatic breast cancer. 3. Ascites and abdominal wall edema. 4. Diabetes mellitus type 2. 5. Hypertension. 6. Hyperlipidemia. 7. Sleep apnea. 8. Tachycardia. 9. History of anxiety and panic disorder. 10.Fever for evaluation. RECOMMENDATIONS AND DISCUSSION: This 52-year-old woman who presented with multiple complex medical issues. We will continue current management. CT scan has been ordered. I would also recommend a set of cultures, UA with micro and as well as follow closely with Dr. Tracy. Monitor fluid and electrolyte balance closely. Limit the fluid intake and continue with current medications. Discussed the patient who understands. Further recommendations to follow. MMODL / IJN: [id number] /
--- NOTE | 2017-08-21 15:50 | CT ---
EXAMINATION TYPE: CT abdomen pelvis w con DATE OF EXAM: 08/21/2017 COMPARISON: CT chest 08/20/2017 HISTORY: 52-year-old female possible metastatic disease, h/o Breast CA. Last chemotherapy 2 weeks ago . TECHNIQUE: Contiguous axial scanning of the abdomen and pelvis following administration of 100 ml Omn ipaque 300 IV contrast. Delayed images through the kidneys and coronal/sagittal reconstructions perf ormed. CT DLP: 2971.1 mGycm Automated exposure control for dose reduction was used. FINDINGS: The heart is normal size with trace pericardial fluid. Continued small right and trace left pleural e ffusions. Patchy opacities and septal thickening in the visualized lower lungs. Correlate to exclude pulmonary vascular congestion. Too numerous to count throughout the liver with a irregular liver contour. There is a 2.9 cm gallstone present. No abnormal gallbladder distention. Diffuse anasarca type changes with moderate abdominopelvic ascites and mild interloop fluid. Adrenal glands, kidneys, spleen, and pancreas appear within normal limits. No dilated small bowel or free air. There is mild scattered stool with occasional left hemicolectomy diverticulosis. No pericolonic infla mmatory change seen. Moderate pelvic ascites. Uterus and ovaries are visualized. Rectum is distended up to 5.8 cm wide wit h stool. No pelvic lymphadenopathy. Bones: There is a 2.1 cm destructive lytic lesion within the left iliac bone destroying the posterior iliac cortex. Degenerative changes lower lumbar spine. Disc/endplate degenerative change at the thoracolumbar junct ion. IMPRESSION: 1. THE LIVER IS RIDDLED WITH METASTATIC DISEASE. 2. A 2.1 CM LYTIC LESION IN THE LEFT ILIAC BONE DESTROYING THE POSTERIOR CORTEX. 3. DIFFUSE ANASARCA TYPE CHANGE WITH MODERATE ABDOMINOPELVIC ASCITES. CORRELATE WITH PATIENT'S FLUID STATUS. CONTINUED SMALL RIGHT AND TRACE LEFT PLEURAL EFFUSIONS. 4. LEFT HEMICOLONIC DIVERTICULOSIS AND CHOLELITHIASIS.
[2017-08-21] MEDS ORDERED: POTASSIUM CHLORIDE ER 20 MEQ TAB.ER PO SCH (16:00)
[2017-08-21] MEDS: MAGNESIUM SULFATE-D5W PMX 1 GM in DEXTROSE/WATER 1 100ML.BAG IVPB SCH ×3 (16:32→19:23)
[2017-08-21 18:34] LABS: Appearance,Urine Clear (Clear); Bilirubin,Urine Negative (Negative); Glucose,Urine (UA) Negative (Negative); Ketones,Urine Negative (Negative); Leukocyte Esterase,Urine Negative (Negative); Mucus,Urine Rare /hpf; Nitrite,Urine Negative (Negative); Particle Count 5623; Protein,Urine 1+ (Negative); RBC,Urine 4 /hpf (0-5); Squamous Epithelial Cell,Urine 5 /hpf (0-4); UA Billing (MACRO vs. MICRO) MICRO; WBC,Urine 2 /hpf (0-5)
[2017-08-21 18:36] LABS: Specific Gravity,Urine >1.050 (1.001-1.035)
[2017-08-21] MEDS: PROMETHAZ-COD 6.25-10 MG/5 ML 5 ML CUP PO PRN (21:39)
[2017-08-21] MEDS: ATORVASTATIN 10 MG TAB PO SCH (21:41)
[2017-08-22 07:38] LABS: Anisocytosis Slight; Basophils # (A) 0.1 k/uL (0-0.2); Basophils % (A) 1 %; CH 29.1; CHCM 30.6; Eosinophils # (A) 0.1 k/uL (0-0.7); Eosinophils % (A) 1 %; HCT 43.5 % (34.0-46.0); HDW 2.19; HGB 13.7 gm/dL (11.4-16.0); Hypochromasia Slight; Luc # (Auto) 0.19; Luc % (Auto) 2; Lymphocytes # (A) 1.4 k/uL (1.0-4.8); Lymphocytes % (A) 16 %; MCHC 31.4 g/dL (31.0-37.0); MCV 95.6 fL (80.0-100.0); Mean Platelet Volume 9.8; Monocytes # (A) 0.8 k/uL (0-1.0); Monocytes % (A) 9 %; Neutrophils # (A) 6.1 k/uL (1.3-7.7); Neutrophils % (A) 71 %; RBC 4.55 m/uL (3.80-5.40); RDW 17.1 % (11.5-15.5); WBC 8.5 k/uL (3.8-10.6); WBC (Perox) 8.44
[2017-08-22 08:11] LABS: ALT 98 U/L (9-52); AST 186 U/L (14-36); Alkaline Phosphatase 282 U/L (38-126); Anion Gap 3 mmol/L; Blood Urea Nitrogen 19 mg/dL (7-17); Calcium 7.9 mg/dL (8.4-10.2); Carbon Dioxide 31 mmol/L (22-30); Chloride 101 mmol/L (98-107); Glucose 83 mg/dL (74-99); Magnesium 2.1 mg/dL (1.6-2.3); Non-African American GFR(MDRD) >60 (>60 ml/min/1.73 sqM); Potassium 4.1 mmol/L (3.5-5.1); Sodium 135 mmol/L (137-145); Total Bilirubin 1.2 mg/dL (0.2-1.3); Total Protein 5.4 g/dL (6.3-8.2)
[2017-08-22] MEDS: DOCUSATE 100 MG CAP PO SCH ×2 (10:13→20:10)
[2017-08-22] MEDS: FAMOTIDINE 20 MG TAB PO SCH ×2 (10:14→20:10)
[2017-08-22] MEDS: TAMOXIFEN 10 MG TAB PO SCH (10:14)
[2017-08-22] MEDS: METOPROLOL TARTRATE 50 MG TAB PO SCH ×2 (10:17→21:11)
[2017-08-22] MEDS: FUROSEMIDE 10 MG/ML 2 ML VIAL IV SCH ×2 (10:18→13:10)
[2017-08-22] MEDS: VENLAFAXINE HCL ER 150 MG CAP PO SCH (10:19)
[2017-08-22 12:01] LABS: Glucose,Whole Blood 161 mg/dL (75-99)
--- NOTE | 2017-08-22 13:36 | P.PN ---
Subjective Progress Note Date: 08/22/17 Principal diagnosis: progressive dyspnea secondary to pulmonary metastasis from metastatic breast cancer. Small right-sided pleural effusion 52-year-old female patient with known history of metastatic breast cancer was undergone bilateral mastectomy. The patient is also morbidly obese and she has obstructive sleep apnea maintained on CPAP therapy. The patient was furthermore diagnosed having pulmonary involvement with metastatic breast cancer. The patient had a right-sided pleural effusion that was drained and approximately a liter of fluid was removed and the fluid was positive for breast cancer. The patient also known to have some noted that his throughout the lung bedoya bilaterally and the largest nodule is measuring 7 mm in size and these are noncalcified and I think this is part of her metastatic disease. The left pleural space is clean. The patient has no pericardial effusion. [facility]. I think the plan was to start the patient on Herceptin with possibly an alternative chemotherapeutic agent. She was in my office and she was complaining of worsening shortness of breath. Her abdominal girth and dimensions were also enlarging. I performed a chest x-ray and there was no significant the recommendation of right-sided pleural effusion. Based on that, I sent this patient for an outpatient ultrasound the abdomen looking for ascites. The ultrasound was done this morning and the patient was found to have a 8 cm right-sided pleural effusion and the area was marked for thoracentesis. In addition there was small amount of ascites noted. The patient furthermore came into the emergency department she was hospitalized regarding her shortness of breath. As part of her workup a CTA of the chest was repeated and it showed no evidence of any acute pulmonary embolism, there was a small to moderate-sized right-sided pleural effusion, elevation of left hemidiaphragm, ascites and atelectasis in the right middle lobe. Echocardiogram from June 2017 shows no evidence of any pericardial effusion and the patient's left ventricular ejection fraction is well- preserved. Blood work shows no acute abnormalities. She has increased lower extremity edema in the patient's renal function is stable and normal and the patient has a component of hypomagnesemia, and hypoalbuminemia. LFTs are abnormal related to metastatic liver involvement with breast cancer. On 08/21/2017 patient seen oncology floor and follow-up. She states her breathing as slightly improved, she was able to sleep in bed last night on her right side. She is diuresing well on Lasix, she has lost around 3-1/2 kg since admission. Her bilateral lower extremity edema has improved. Lung sounds are clear with diminished air entry on the right lower lobe, positive dullness to percussion over right lower lobe. remains on oxygen at 2 L per nasal cannula with O2 sat around 95%. Low-grade fever this morning with T-max of 100.3F. she denies any significant chest congestion, or sputum production. Patient seen in follow-up 08/22/2017 patient seen in follow-up on oncology floor. She doesn't -700 fluid balance over the last 24 hours. Afebrile, on 2 L per nasal cannula with O2 sat at 96%. Hypertension this morning with systolic blood pressure in the 80s. Recovered. Most recent blood pressure from 11:00 is 105/73. CT abdomen and pelvis was reviewed by Dr. Tracy, and shows moderate amount of abdominal pelvic ascites. It is still having quite a bit of swelling in bilateral lower extremities, 1+ pitting edema. After discussion with interventional radiologist Dr. Tinsley, it was determined , the performance of paracentesis would not offer much benefit, and to continue with IV Lasix diuresis. We will continue with Lasix 20 mg IV every 12 hours provided the blood pressure will tolerate the diuresis. Otherwise doing well, ambulates to the bathroom, took a shower today without significant respiratory distress. Objective - Vital Signs Vital signs: Vital Signs Temp 98.3 F 08/22/17 07:35 Pulse 117 H 08/22/17 11:37 Resp 17 08/22/17 11:37 BP 105/73 08/22/17 11:37 Pulse Ox 99 08/22/17 11:37 Intake & Output 08/21/17 08/22/17 08/22/17 18:59 06:59 18:59 Intake Total 830 500 Output Total 275 500 700 Balance -275 330 -200 Weight 109 kg 109.497 kg Intake: Oral 830 500 Output: Urine 275 500 700 Other: Voiding Method Toilet # Voids 1 3 100 # Bowel Movements 1 - Exam GENERAL EXAM: Alert, active, comfortable in no apparent distress. HEAD: Normocephalic. EYES: Normal reaction of pupils, equal size. NOSE: Clear with pink turbinates. THROAT: No erythema or exudates. NECK: No masses, no JVD. CHEST: No chest wall deformity. LUNGS: diminished over right lung base with dullness to percussion over right posterior lower lobe. CVS: S1 and S2 normal with no audible mumurs, regular rhythm. ABDOMEN: No hepatosplenomegaly, normal bowel sounds, no guarding or rigidity. abdomen is large, soft, nontender SPINE: No scoliosis or deformity SKIN: No rashes CENTRAL NERVOUS SYSTEM: No focal deficits, tone is normal in all 4 extremities. - Labs CBC & Chem 7: 08/22/17 07:18 08/22/17 07:18 Labs: Abnormal Lab Results - Last 24 Hours (Table) 08/21/17 08/22/17 08/22/17 Range/Units 18:16 07:18 07:18 RDW 17.1 H (11.5-15.5) % Plt Count 145 L (150-450) k/uL Sodium 135 L (137-145) mmol/L Carbon Dioxide 31 H (22-30) mmol/L BUN 19 H (7-17) mg/dL POC Glucose (mg/dL) (75-99) mg/dL Calcium 7.9 L (8.4-10.2) mg/dL AST 186 H (14-36) U/L ALT 98 H (9-52) U/L Alkaline Phosphatase 282 H (38-126) U/L Total Protein 5.4 L (6.3-8.2) g/dL Albumin 2.0 L (3.5-5.0) g/dL Ur Specific [place] >1.050 H (1.001-1.035) Urine Protein 1+ H (Negative) Ur Squamous Epith Cells 5 H (0-4) /hpf Urine Mucus Rare H (None) /hpf 08/22/17 Range/Units 11:58 RDW (11.5-15.5) % Plt Count (150-450) k/uL Sodium (137-145) mmol/L Carbon Dioxide (22-30) mmol/L BUN (7-17) mg/dL POC Glucose (mg/dL) 161 H (75-99) mg/dL Calcium (8.4-10.2) mg/dL AST (14-36) U/L ALT (9-52) U/L Alkaline Phosphatase (38-126) U/L Total Protein (6.3-8.2) g/dL Albumin (3.5-5.0) g/dL Ur Specific [place] (1.001-1.035) Urine Protein (Negative) Ur Squamous Epith Cells (0-4) /hpf Urine Mucus (None) /hpf Microbiology - Last 24 Hours (Table) 08/21/17 18:16 Urine Culture - Preliminary Urine,Voided Assessment and Plan Plan: 1 progressive dyspnea secondary to pulmonary metastasis from metastatic breast cancer. The patient has a malignant right-sided pleural effusion which is moderate in size in addition to multinodular involvement of the lungs, possibly secondary to parenchymal lung metastases. No evidence of any pulmonary embolism. Abdomen is distended with some mild ascites which probably is contributing to her shortness of breath. 2 chronic dyspnea and cough secondary to above 3 metastatic breast cancer with skeletal, liver, and lung involvement. The patient is under the care of Dr. dueñas, scans instituted. The patient is being considered for Herceptin. 4 abdominal distention/ascites 5 hypertension 6 hyperlipidemia 7 anxiety/panic 8 history of SVT. 9 diabetes mellitus 10 increased lower extremity edema 11 obesity 12 [address] of abdomen and pelvis has been reviewed by Dr. Tracy and discussed with interventional radiologist Dr. Tinsley. He was determined that the paracentesis would not offer much benefit at this point, and to continue with diuresis with IV Lasix. Bilateral lower extremity edema has improved, as well as the patient's dyspnea. Constinue Lasix 20 mg every 12 hours as long as the blood pressure tolerates it. Daily weight and accurate I&O's. We will consider a thoracentesis at a later stage if the patient remains short of breath. The pleural effusion is small to moderate in size and it malignant based on the previous evaluation. Long-term prognosis poor baseline above-mentioned. I performed a history & physical examination of the patient and discussed their management with my nurse practitioner, Ct Stanley. I reviewed the nurse practitioner's note and agree with the documented findings and plan of care. lungs sounds are clear diminished over right posterior lower lobe. Positive dullness to percussion. The amount of pleural effusion is small to moderate in size, no thoracentesis is indicated at this time. Patient is responding well to Lasix. No drainable amount of ascites identified on the CT abdomen and pelvis. I attest the documentation by the nurse practitioner Time with Patient: Less than 30
--- NOTE | 2017-08-22 14:09 | PN ---
PROGRESS NOTE DATE OF SERVICE: 08/22/2017 This 52-year-old woman was admitted with shortness of breath which is multifactorial, is being closely monitored. No chest pain. No palpitations. No fever. Dr. Tracy is contemplating possible thoracocentesis. EXAM: Alert and oriented times three. Pulse 117, blood pressure 103/73, respirations 17, temperature 98.2, pulse ox 99% on 2 L. HEENT: Conjunctivae normal. Neck: No jugular venous distention. Cardiovascular: S1, S2 muffled. Respiratory: Breath sounds diminished in the bases. A few scattered rhonchi and crackles. Abdomen is soft, nontender. No mass palpable. Legs no edema. No swelling. Central nervous system: No focal deficits. LABORATORY DATA: WBC 8.5, hemoglobin 13.7, sodium 135, AST is 186, ALT is 98. ASSESSMENT: 1. Shortness of breath possibly multifactorial secondary to pleural effusion as well as advanced pulmonary metastasis. 2. Metastatic breast cancer. 3. Ascites and abdominal wall edema. 4. Diabetes type 2. 5. Hypertension. 6. Hyperlipidemia. 7. History of sleep apnea. 8. Tachycardia. 9. History of anxiety/panic disorder. 10.Fever for evaluation. RECOMMENDATIONS AND DISCUSSION: Continue current medications. Continue symptomatic treatment. Otherwise at this time I recommend continue monitor with Dr. Tracy. The Lasix has been held because of the relative hypotension. Symptomatically the patient definitely better, but patient has significant multiple complex medical issues, as mentioned earlier. Further recommendations to follow. MMODL / IJN: [id number] /
[2017-08-22 17:12] LABS: Glucose,Whole Blood 201 mg/dL (75-99)
[2017-08-22] MEDS: INSULIN LISPRO (humaLOG) 300 UNIT/3 ML VIAL SQ SCH ×2 (17:35→21:12)
[2017-08-22] MEDS: PROMETHAZ-COD 6.25-10 MG/5 ML 5 ML CUP PO PRN (20:09)
[2017-08-22] MEDS: ATORVASTATIN 10 MG TAB PO SCH (20:09)
[2017-08-22 20:31] LABS: Glucose,Whole Blood 192 mg/dL (75-99)
[2017-08-23] MEDS: PROMETHAZ-COD 6.25-10 MG/5 ML 5 ML CUP PO PRN ×2 (06:29→21:34)
[2017-08-23 06:34] LABS: Basophils # (A) 0.1 k/uL (0-0.2); Basophils % (A) 1 %; CH 29.8; CHCM 31.2; Eosinophils # (A) 0.1 k/uL (0-0.7); Eosinophils % (A) 1 %; HCT 44.5 % (34.0-46.0); HDW 2.18; HGB 13.9 gm/dL (11.4-16.0); Luc # (Auto) 0.17; Luc % (Auto) 2; Lymphocytes # (A) 1.7 k/uL (1.0-4.8); Lymphocytes % (A) 18 %; MCH 29.9 pg (25.0-35.0); MCHC 31.1 g/dL (31.0-37.0); MCV 96.2 fL (80.0-100.0); Mean Platelet Volume 8.4; Monocytes # (A) 0.7 k/uL (0-1.0); Monocytes % (A) 8 %; Neutrophils # (A) 6.5 k/uL (1.3-7.7); Neutrophils % (A) 71 %; RBC 4.63 m/uL (3.80-5.40); RDW 15.6 % (11.5-15.5); WBC 9.3 k/uL (3.8-10.6)
[2017-08-23 06:59] LABS: Glucose,Whole Blood 74 mg/dL (75-99)
[2017-08-23 06:59] LABS: ALT 98 U/L (9-52); AST 210 U/L (14-36); Alkaline Phosphatase 301 U/L (38-126); Anion Gap 3 mmol/L; Blood Urea Nitrogen 20 mg/dL (7-17); Carbon Dioxide 31 mmol/L (22-30); Chloride 100 mmol/L (98-107); Glucose 73 mg/dL (74-99); Non-African American GFR(MDRD) >60 (>60 ml/min/1.73 sqM); Potassium 4.3 mmol/L (3.5-5.1); Sodium 134 mmol/L (137-145); Total Bilirubin 1.3 mg/dL (0.2-1.3); Total Protein 5.6 g/dL (6.3-8.2)
[2017-08-23] MEDS: INSULIN LISPRO (humaLOG) 300 UNIT/3 ML VIAL SQ SCH ×4 (08:46→21:34)
[2017-08-23] MEDS: FUROSEMIDE 10 MG/ML 2 ML VIAL IV SCH ×2 (08:53→21:17)
[2017-08-23] MEDS: DOCUSATE 100 MG CAP PO SCH ×2 (08:53→21:16)
[2017-08-23] MEDS: FAMOTIDINE 20 MG TAB PO SCH ×2 (08:53→21:16)
[2017-08-23] MEDS: METOPROLOL TARTRATE 50 MG TAB PO SCH ×2 (08:53→21:16)
[2017-08-23] MEDS: TAMOXIFEN 10 MG TAB PO SCH (08:53)
[2017-08-23] MEDS: VENLAFAXINE HCL ER 150 MG CAP PO SCH (09:02)
[2017-08-23 11:44] LABS: Glucose,Whole Blood 152 mg/dL (75-99)
--- NOTE | 2017-08-23 14:01 | XR ---
EXAMINATION TYPE: XR chest 1V portable DATE OF EXAM: 08/23/2017 COMPARISON: 08/20/2017 HISTORY: Difficulty breathing FINDINGS: There are bilateral pleural effusions with cardiomegaly and bibasilar infiltrate. There is a diffuse interstitial pattern. Postsurgical change left axilla. Mediport catheter noted. Somewhat coiled. Tip overlies the SVC atrial junction. IMPRESSION: 1. Stable bilateral consolidation and small effusion greater on the right. Correlate for underlying C HF.
--- NOTE | 2017-08-23 15:19 | P.PN ---
<Ct Stanley M - Last Filed: 08/23/17 15:13> Subjective Progress Note Date: 08/23/17 Principal diagnosis: progressive dyspnea secondary to pulmonary metastasis from metastatic breast cancer. Small right-sided pleural effusion 52-year-old female patient with known history of metastatic breast cancer was undergone bilateral mastectomy. The patient is also morbidly obese and she has obstructive sleep apnea maintained on CPAP therapy. The patient was furthermore diagnosed having pulmonary involvement with metastatic breast cancer. The patient had a right-sided pleural effusion that was drained and approximately a liter of fluid was removed and the fluid was positive for breast cancer. The patient also known to have some noted that his throughout the lung bedoya bilaterally and the largest nodule is measuring 7 mm in size and these are noncalcified and I think this is part of her metastatic disease. The left pleural space is clean. The patient has no pericardial effusion. [facility]. I think the plan was to start the patient on Herceptin with possibly an alternative chemotherapeutic agent. She was in my office and she was complaining of worsening shortness of breath. Her abdominal girth and dimensions were also enlarging. I performed a chest x-ray and there was no significant the recommendation of right-sided pleural effusion. Based on that, I sent this patient for an outpatient ultrasound the abdomen looking for ascites. The ultrasound was done this morning and the patient was found to have a 8 cm right-sided pleural effusion and the area was marked for thoracentesis. In addition there was small amount of ascites noted. The patient furthermore came into the emergency department she was hospitalized regarding her shortness of breath. As part of her workup a CTA of the chest was repeated and it showed no evidence of any acute pulmonary embolism, there was a small to moderate-sized right-sided pleural effusion, elevation of left hemidiaphragm, ascites and atelectasis in the right middle lobe. Echocardiogram from June 2017 shows no evidence of any pericardial effusion and the patient's left ventricular ejection fraction is well- preserved. Blood work shows no acute abnormalities. She has increased lower extremity edema in the patient's renal function is stable and normal and the patient has a component of hypomagnesemia, and hypoalbuminemia. LFTs are abnormal related to metastatic liver involvement with breast cancer. On 08/21/2017 patient seen oncology floor and follow-up. She states her breathing as slightly improved, she was able to sleep in bed last night on her right side. She is diuresing well on Lasix, she has lost around 3-1/2 kg since admission. Her bilateral lower extremity edema has improved. Lung sounds are clear with diminished air entry on the right lower lobe, positive dullness to percussion over right lower lobe. remains on oxygen at 2 L per nasal cannula with O2 sat around 95%. Low-grade fever this morning with T-max of 100.3F. she denies any significant chest congestion, or sputum production. Patient seen in follow-up 08/22/2017 patient seen in follow-up on oncology floor. She doesn't -700 fluid balance over the last 24 hours. Afebrile, on 2 L per nasal cannula with O2 sat at 96%. Hypertension this morning with systolic blood pressure in the 80s. Recovered. Most recent blood pressure from 11:00 is 105/73. CT abdomen and pelvis was reviewed by Dr. Tracy, and shows moderate amount of abdominal pelvic ascites. It is still having quite a bit of swelling in bilateral lower extremities, 1+ pitting edema. After discussion with interventional radiologist Dr. Tinsley, it was determined , the performance of paracentesis would not offer much benefit, and to continue with IV Lasix diuresis. We will continue with Lasix 20 mg IV every 12 hours provided the blood pressure will tolerate the diuresis. Otherwise doing well, ambulates to the bathroom, took a shower today without significant respiratory distress. On 08/23/2017 patient is seen in follow-up. She is in -300 mL fluid balance of the last 24 hours. Her weight is up 1/2 kg over the last 24 hours, edema in her bilateral lower extremities is improving, oxygenation is stable at 2 L per nasal cannula, I asked the nursing staff this morning to remove the oxygen and obtain a room air pulse ox. It was discussed with her that the amount of pleural fluid or lateral is very small, we will continue with IV diuretics. No further episodes of hypotension, patient is in agreement with the plan. Lung sounds diminished, with a few scattered crackles. Objective - Vital Signs Vital signs: Vital Signs Temp 98.9 F 08/23/17 07:00 Pulse 98 08/23/17 08:00 Resp 18 08/23/17 08:00 BP 109/78 11/02/17 07:00 Pulse Ox 94 L 08/23/17 09:30 Intake & Output 08/22/17 08/23/17 08/23/17 18:59 06:59 18:59 Intake Total 737 438 Output Total 950 850 300 Balance -213 -412 -300 Weight 109.497 kg 111 kg Intake: Oral 737 438 Output: Urine 950 850 300 Other: Voiding Method Toilet Toilet Toilet # Voids 150 1 # Bowel Movements 1 - Exam GENERAL EXAM: Alert, active, comfortable in no apparent distress. HEAD: Normocephalic. EYES: Normal reaction of pupils, equal size. NOSE: Clear with pink turbinates. THROAT: No erythema or exudates. NECK: No masses, no JVD. CHEST: No chest wall deformity. LUNGS: diminished over right lung base with dullness to percussion over right posterior lower lobe. CVS: S1 and S2 normal with no audible mumurs, regular rhythm. ABDOMEN: No hepatosplenomegaly, normal bowel sounds, no guarding or rigidity. abdomen is large, soft, nontender SPINE: No scoliosis or deformity SKIN: No rashes CENTRAL NERVOUS SYSTEM: No focal deficits, tone is normal in all 4 extremities. - Labs CBC & Chem 7: 08/23/17 06:20 08/23/17 06:20 Labs: Abnormal Lab Results - Last 24 Hours (Table) 08/22/17 08/22/17 08/23/17 Range/Units 17:10 20:30 06:20 RDW 15.6 H (11.5-15.5) % Sodium (137-145) mmol/L Carbon Dioxide (22-30) mmol/L BUN (7-17) mg/dL Glucose (74-99) mg/dL POC Glucose (mg/dL) 201 H 192 H (75-99) mg/dL Calcium (8.4-10.2) mg/dL AST (14-36) U/L ALT (9-52) U/L Alkaline Phosphatase (38-126) U/L Total Protein (6.3-8.2) g/dL Albumin (3.5-5.0) g/dL 08/23/17 08/23/17 08/23/17 Range/Units 06:20 06:57 11:34 RDW (11.5-15.5) % Sodium 134 L (137-145) mmol/L Carbon Dioxide 31 H (22-30) mmol/L BUN 20 H (7-17) mg/dL Glucose 73 L (74-99) mg/dL POC Glucose (mg/dL) 74 L 152 H (75-99) mg/dL Calcium 8.0 L (8.4-10.2) mg/dL AST 210 H (14-36) U/L ALT 98 H (9-52) U/L Alkaline Phosphatase 301 H (38-126) U/L Total Protein 5.6 L (6.3-8.2) g/dL Albumin 2.1 L (3.5-5.0) g/dL Microbiology - Last 24 Hours (Table) 08/21/17 18:16 Urine Culture - Final Urine,Voided 08/21/17 14:49 Blood Culture - Preliminary Blood No Growth after 24 hours Assessment and Plan Plan: 1 progressive dyspnea secondary to pulmonary metastasis from metastatic breast cancer. The patient has a malignant right-sided pleural effusion which is moderate in size in addition to multinodular involvement of the lungs, possibly secondary to parenchymal lung metastases. No evidence of any pulmonary embolism. Abdomen is distended with some mild ascites which probably is contributing to her shortness of breath. 2 chronic dyspnea and cough secondary to above 3 metastatic breast cancer with skeletal, liver, and lung involvement. The patient is under the care of Dr. dueñas, scans instituted. The patient is being considered for Herceptin. 4 abdominal distention/ascites 5 hypertension 6 hyperlipidemia 7 anxiety/panic 8 history of SVT. 9 diabetes mellitus 10 increased lower extremity edema 11 obesity [address] of abdomen and pelvis has been reviewed by Dr. Tracy and discussed with interventional radiologist Dr. Tinsley. He was determined that the paracentesis would not offer much benefit at this point, and to continue with diuresis with IV Lasix. The amount of fluid and bilateral pleural effusions is very small. This would also managed with IV Lasix. Bilateral lower extremity edema has improved, as well as the patient's dyspnea. Constinue Lasix 20 mg every 12 hours, for further episodes of hypotension noted. Daily weight and accurate I&O's. We will consider a thoracentesis at a later stage if the patient remains short of breath. The pleural effusion is small to moderate in size and it malignant based on the previous evaluation. Long-term prognosis poor baseline above-mentioned. I performed a history & physical examination of the patient and discussed their management with my nurse practitioner, Ct Stanley. I reviewed the nurse practitioner's note and agree with the documented findings and plan of care. lungs sounds are clear diminished over right posterior lower lobe. Positive dullness to percussion. The amount of pleural effusion is small to moderate in size, no thoracentesis is indicated at this time. Patient is responding well to Lasix. No drainable amount of ascites identified on the CT abdomen and pelvis. I attest the documentation by the nurse practitioner Time with Patient: Less than 30 <Carolina Tracy - Last Filed: 08/23/17 15:40> Objective - Vital Signs Vital signs: Vital Signs Temp 98.9 F 08/23/17 07:00 Pulse 98 08/23/17 08:00 Resp 18 08/23/17 08:00 BP 109/78 08/23/17 07:00 Pulse Ox 94 L 08/23/17 09:30 Intake & Output 08/22/17 08/23/17 08/23/17 18:59 06:59 18:59 Intake Total 737 438 Output Total 950 850 300 Balance -213 -412 -300 Weight 109.497 kg 111 kg Intake: Oral 737 438 Output: Urine 950 850 300 Other: Voiding Method Toilet Toilet Toilet # Voids 150 1 # Bowel Movements 1 - Labs CBC & Chem 7: 08/23/17 06:20 08/23/17 06:20 Labs: Abnormal Lab Results - Last 24 Hours (Table) 08/22/17 08/22/17 08/23/17 Range/Units 17:10 20:30 06:20 RDW 15.6 H (11.5-15.5) % Sodium (137-145) mmol/L Carbon Dioxide (22-30) mmol/L BUN (7-17) mg/dL Glucose (74-99) mg/dL POC Glucose (mg/dL) 201 H 192 H (75-99) mg/dL Calcium (8.4-10.2) mg/dL AST (14-36) U/L ALT (9-52) U/L Alkaline Phosphatase (38-126) U/L Total Protein (6.3-8.2) g/dL Albumin (3.5-5.0) g/dL 08/23/17 08/23/17 08/23/17 Range/Units 06:20 06:57 11:34 RDW (11.5-15.5) % Sodium 134 L (137-145) mmol/L Carbon Dioxide 31 H (22-30) mmol/L BUN 20 H (7-17) mg/dL Glucose 73 L (74-99) mg/dL POC Glucose (mg/dL) 74 L 152 H (75-99) mg/dL Calcium 8.0 L (8.4-10.2) mg/dL AST 210 H (14-36) U/L ALT 98 H (9-52) U/L Alkaline Phosphatase 301 H (38-126) U/L Total Protein 5.6 L (6.3-8.2) g/dL Albumin 2.1 L (3.5-5.0) g/dL Microbiology - Last 24 Hours (Table) 08/21/17 18:16 Urine Culture - Final Urine,Voided 08/21/17 14:49 Blood Culture - Preliminary Blood No Growth after 24 hours Assessment and Plan Plan: Is a joint evaluation that was done along with the nurse practitioner. The patient is responding well to diuretics. Abdomen is less distended. Lower extremity edema is slowly improving. The patient is in a negative fluid balance. We'll repeat a chest x-ray and blood thoracentesis if there is a sizable effusion. Noted on either today or tomorrow.
--- NOTE | 2017-08-23 17:05 | PN ---
PROGRESS NOTE DATE OF SERVICE: 08/23/2017 INTERVAL HISTORY: This 52-year-old woman was admitted with metastatic breast cancer, was complaining of shortness of breath. The patient improved significantly. Dr. Tracy is planning thoracocentesis. No chest pain. No palpitations. No fever. Ascites, not much for abdominal paracentesis. The patient is on Lasix IV. EXAM: Alert and oriented times three. Pulse 96, blood pressure 112/84, respiration 26, temperature 98.6, pulse ox 98% room air. HEENT conjunctivae normal. Oral mucosa moist. Neck: No jugular venous distention. Cardiovascular: S1, S2. Respiratory: Breath sounds diminished in the bases. A few scattered rhonchi and crackles. Abdomen is soft, obese, nontender. Legs: Bilateral leg edema. Nervous system: No focal deficits. LAB STUDIES: CBC within normal limits. Sodium 134, glucose 74 and 152. ASSESSMENT: 1. Shortness of breath possibly multifactorial secondary to pleural effusion as well as advanced pulmonary mental status. 2. Metastatic breast cancer. 3. Ascites and abdominal wall edema. 4. Diabetes type 2. 5. Hypertension. 6. Hyperlipidemia. 7. History of sleep apnea. 8. Tachycardia. 9. History of anxiety and panic disorder. 10.Fever for evaluation. RECOMMENDATIONS AND DISCUSSION: Continue current management. Continue with monitoring, symptomatic treatment. Otherwise at this time I recommend continue with current medications. Continue with cautious diuresis. Monitor fluid and electrolytes balance closely. Otherwise, possible thoracocentesis. Not a candidate for abdominal paracentesis at this time. Further recommendations to follow. MMODL / IJN: [id number] /
[2017-08-23 17:14] LABS: Glucose,Whole Blood 156 mg/dL (75-99)
[2017-08-23 21:16] LABS: Glucose,Whole Blood 155 mg/dL (75-99)
[2017-08-23] MEDS: ATORVASTATIN 10 MG TAB PO SCH (21:16)
[2017-08-24 07:29] LABS: Glucose,Whole Blood 93 mg/dL (75-99)
[2017-08-24 07:32] LABS: Anisocytosis Slight; Basophils # (A) 0.1 k/uL (0-0.2); Basophils % (A) 1 %; CH 29.5; CHCM 30.8; Eosinophils # (A) 0.1 k/uL (0-0.7); Eosinophils % (A) 1 %; HCT 45.7 % (34.0-46.0); HGB 13.9 gm/dL (11.4-16.0); Hypochromasia Slight; Luc # (Auto) 0.16; Luc % (Auto) 2; Lymphocytes # (A) 1.5 k/uL (1.0-4.8); Lymphocytes % (A) 18 %; MCH 29.4 pg (25.0-35.0); MCHC 30.4 g/dL (31.0-37.0); MCV 96.6 fL (80.0-100.0); Macrocytosis Slight; Mean Platelet Volume 9.3; Monocytes # (A) 0.7 k/uL (0-1.0); Monocytes % (A) 9 %; Neutrophils # (A) 5.7 k/uL (1.3-7.7); Neutrophils % (A) 70 %; RBC 4.73 m/uL (3.80-5.40); RDW 17.1 % (11.5-15.5); WBC 8.1 k/uL (3.8-10.6); WBC (Perox) 7.77
[2017-08-24 07:49] LABS: ALT 98 U/L (9-52); AST 208 U/L (14-36); Alkaline Phosphatase 300 U/L (38-126); Anion Gap 4 mmol/L; Blood Urea Nitrogen 22 mg/dL (7-17); Carbon Dioxide 32 mmol/L (22-30); Chloride 98 mmol/L (98-107); Glucose 90 mg/dL (74-99); Non-African American GFR(MDRD) >60 (>60 ml/min/1.73 sqM); Potassium 4.4 mmol/L (3.5-5.1); Sodium 134 mmol/L (137-145); Total Bilirubin 1.5 mg/dL (0.2-1.3); Total Protein 5.9 g/dL (6.3-8.2)
[2017-08-24] MEDS: INSULIN LISPRO (humaLOG) 300 UNIT/3 ML VIAL SQ SCH ×4 (08:20→20:31)
[2017-08-24] MEDS: DOCUSATE 100 MG CAP PO SCH ×2 (08:59→20:02)
[2017-08-24] MEDS: METOPROLOL TARTRATE 50 MG TAB PO SCH ×2 (08:59→20:01)
[2017-08-24] MEDS: VENLAFAXINE HCL ER 150 MG CAP PO SCH (08:59)
[2017-08-24] MEDS: FAMOTIDINE 20 MG TAB PO SCH ×2 (08:59→20:01)
[2017-08-24] MEDS: FUROSEMIDE 10 MG/ML 2 ML VIAL IV SCH (08:59)
[2017-08-24] MEDS: TAMOXIFEN 10 MG TAB PO SCH (09:00)
[2017-08-24 12:17] LABS: Glucose,Whole Blood 183 mg/dL (75-99)
--- NOTE | 2017-08-24 12:45 | P.PN ---
Subjective Progress Note Date: 08/24/17 Principal diagnosis: progressive dyspnea secondary to pulmonary metastasis from metastatic breast cancer. Small right-sided pleural effusion 52-year-old female patient with known history of metastatic breast cancer was undergone bilateral mastectomy. The patient is also morbidly obese and she has obstructive sleep apnea maintained on CPAP therapy. The patient was furthermore diagnosed having pulmonary involvement with metastatic breast cancer. The patient had a right-sided pleural effusion that was drained and approximately a liter of fluid was removed and the fluid was positive for breast cancer. The patient also known to have some noted that his throughout the lung bedoya bilaterally and the largest nodule is measuring 7 mm in size and these are noncalcified and I think this is part of her metastatic disease. The left pleural space is clean. The patient has no pericardial effusion. [facility] onc[facility]. I think the plan was to start the patient on Herceptin with possibly an alternative chemotherapeutic agent. She was in my office and she was complaining of worsening shortness of breath. Her abdominal girth and dimensions were also enlarging. I performed a chest x-ray and there was no significant the recommendation of right-sided pleural effusion. Based on that, I sent this patient for an outpatient ultrasound the abdomen looking for ascites. The ultrasound was done this morning and the patient was found to have a 8 cm right-sided pleural effusion and the area was marked for thoracentesis. In addition there was small amount of ascites noted. The patient furthermore came into the emergency department she was hospitalized regarding her shortness of breath. As part of her workup a CTA of the chest was repeated and it showed no evidence of any acute pulmonary embolism, there was a small to moderate-sized right-sided pleural effusion, elevation of left hemidiaphragm, ascites and atelectasis in the right middle lobe. Echocardiogram from June 2017 shows no evidence of any pericardial effusion and the patient's left ventricular ejection fraction is well- preserved. Blood work shows no acute abnormalities. She has increased lower extremity edema in the patient's renal function is stable and normal and the patient has a component of hypomagnesemia, and hypoalbuminemia. LFTs are abnormal related to metastatic liver involvement with breast cancer. On 08/21/2017 patient seen oncology floor and follow-up. She states her breathing as slightly improved, she was able to sleep in bed last night on her right side. She is diuresing well on Lasix, she has lost around 3-1/2 kg since admission. Her bilateral lower extremity edema has improved. Lung sounds are clear with diminished air entry on the right lower lobe, positive dullness to percussion over right lower lobe. remains on oxygen at 2 L per nasal cannula with O2 sat around 95%. Low-grade fever this morning with T-max of 100.3F. she denies any significant chest congestion, or sputum production. Patient seen in follow-up 08/22/2017 patient seen in follow-up on oncology floor. She doesn't -700 fluid balance over the last 24 hours. Afebrile, on 2 L per nasal cannula with O2 sat at 96%. Hypertension this morning with systolic blood pressure in the 80s. Recovered. Most recent blood pressure from 11:00 is 105/73. CT abdomen and pelvis was reviewed by Dr. Tracy, and shows moderate amount of abdominal pelvic ascites. It is still having quite a bit of swelling in bilateral lower extremities, 1+ pitting edema. After discussion with interventional radiologist Dr. Tinsley, it was determined , the performance of paracentesis would not offer much benefit, and to continue with IV Lasix diuresis. We will continue with Lasix 20 mg IV every 12 hours provided the blood pressure will tolerate the diuresis. Otherwise doing well, ambulates to the bathroom, took a shower today without significant respiratory distress. On 08/23/2017 patient is seen in follow-up. She is in -300 mL fluid balance of the last 24 hours. Her weight is up 1/2 kg over the last 24 hours, edema in her bilateral lower extremities is improving, oxygenation is stable at 2 L per nasal cannula, I asked the nursing staff this morning to remove the oxygen and obtain a room air pulse ox. It was discussed with her that the amount of pleural fluid or lateral is very small, we will continue with IV diuretics. No further episodes of hypotension, patient is in agreement with the plan. Lung sounds diminished, with a few scattered crackles. On 08/24/2017 patient is on room air O2 sat at 95%. She has been afebrile, respirations are even and nonlabored. She tolerates ambulating without any significant respiratory distress. Lung sounds - better air entry bilaterally, no rhonchi, no wheezing. Patient's weight is down 1.1 kg from yesterday. Bilateral lower extremity edema 1+ pitting. We will increase diuresis over the next 24 hours to 40 mg IV every 8 hours. Otherwise patient is doing well, no specific complaints. We'll attempt to increase diuresis in the next 24 hours and hopefully will be able to discharge the patient home tomorrow. Objective - Vital Signs Vital signs: Vital Signs Temp 98.7 F 08/24/17 07:00 Pulse 100 08/24/17 07:00 Resp 16 08/24/17 07:00 BP 108/92 08/24/17 08:58 Pulse Ox 95 08/24/17 07:00 Intake & Output 08/23/17 08/24/17 08/24/17 18:59 06:59 18:59 Intake Total 1080 1080 Output Total 700 750 Balance 380 330 Weight 111 kg 110.1 kg Intake: Oral 1080 Other 1080 Output: Urine 700 750 Other: Voiding Method Toilet Toilet # Voids 1,000 - Exam GENERAL EXAM: Alert, active, comfortable in no apparent distress. HEAD: Normocephalic. EYES: Normal reaction of pupils, equal size. NOSE: Clear with pink turbinates. THROAT: No erythema or exudates. NECK: No masses, no JVD. CHEST: No chest wall deformity. LUNGS: Proved air entry bilaterally, few scattered bibasilar crackles CVS: S1 and S2 normal with no audible mumurs, regular rhythm. ABDOMEN: No hepatosplenomegaly, normal bowel sounds, no guarding or rigidity. abdomen is large, soft, nontender SPINE: No scoliosis or deformity Extremities: 1+ pitting edema bilaterally in lower extremities SKIN: No rashes CENTRAL NERVOUS SYSTEM: No focal deficits, tone is normal in all 4 extremities. - Labs CBC & Chem 7: 08/24/17 06:55 08/24/17 06:55 Labs: Abnormal Lab Results - Last 24 Hours (Table) 08/23/17 08/23/17 08/23/17 Range/Units 06:20 17:13 21:09 MCHC (31.0-37.0) g/dL RDW (11.5-15.5) % Sodium (137-145) mmol/L Carbon Dioxide (22-30) mmol/L BUN (7-17) mg/dL POC Glucose (mg/dL) 156 H 155 H (75-99) mg/dL Hemoglobin A1c 7.4 H (4.0-6.0) % Calcium (8.4-10.2) mg/dL Total Bilirubin (0.2-1.3) mg/dL AST (14-36) U/L ALT (9-52) U/L Alkaline Phosphatase (38-126) U/L Total Protein (6.3-8.2) g/dL Albumin (3.5-5.0) g/dL 08/24/17 08/24/17 08/24/17 Range/Units 06:55 06:55 11:55 MCHC 30.4 L (31.0-37.0) g/dL RDW 17.1 H (11.5-15.5) % Sodium 134 L (137-145) mmol/L Carbon Dioxide 32 H (22-30) mmol/L BUN 22 H (7-17) mg/dL POC Glucose (mg/dL) 183 H (75-99) mg/dL Hemoglobin A1c (4.0-6.0) % Calcium 8.0 L (8.4-10.2) mg/dL Total Bilirubin 1.5 H (0.2-1.3) mg/dL AST 208 H (14-36) U/L ALT 98 H (9-52) U/L Alkaline Phosphatase 300 H (38-126) U/L Total Protein 5.9 L (6.3-8.2) g/dL Albumin 2.2 L (3.5-5.0) g/dL Microbiology - Last 24 Hours (Table) 08/21/17 14:49 Blood Culture - Preliminary Blood No Growth after 48 hours Assessment and Plan Plan: 1 progressive dyspnea secondary to pulmonary metastasis from metastatic breast cancer. The patient has a malignant right-sided pleural effusion which is moderate in size in addition to multinodular involvement of the lungs, possibly secondary to parenchymal lung metastases. No evidence of any pulmonary embolism. Abdomen is distended with some mild ascites which probably is contributing to her shortness of breath. 2 chronic dyspnea and cough secondary to above 3 metastatic breast cancer with skeletal, liver, and lung involvement. The patient is under the care of Dr. dueñas, scans instituted. The patient is being considered for Herceptin. 4 abdominal distention/ascites 5 hypertension 6 hyperlipidemia 7 anxiety/panic 8 history of SVT. 9 diabetes mellitus 10 increased lower extremity edema 11 obesity 12 obstructive sleep apnea Plan Will increase the Lasix to 40 mg every 8 hours IV push in hopes of increasing diuresis over next [address] of abdomen and pelvis has been reviewed by Dr. Tracy and discussed with interventional radiologist Dr. Tinsley. It was determined that the paracentesis would not offer much benefit at this point, and to continue with diuresis with IV Lasix. The amount of fluid and bilateral pleural effusions is very small. This would also managed with IV Lasix. Bilateral lower extremity edema has improved, as well as the patient's dyspnea. Daily weight and accurate I&O's. We will consider a thoracentesis at a later stage if the patient remains short of breath. The pleural effusion is small to moderate in size and it malignant based on the previous evaluation. Long-term prognosis poor baseline above-mentioned. I performed a history & physical examination of the patient and discussed their management with my nurse practitioner, Ct Stanley. I reviewed the nurse practitioner's note and agree with the documented findings and plan of care. lungs sounds are clear with better air entry over posterior bases. Patient is responding well to Lasix. No drainable amount of ascites identified on the CT abdomen and pelvis. I attest the documentation by the nurse practitioner Time with Patient: Less than 30
[2017-08-24 16:53] LABS: Glucose,Whole Blood 154 mg/dL (75-99)
[2017-08-24] MEDS: FUROSEMIDE 10 MG/ML 4 ML VIAL IV SCH ×2 (19:06→23:04)
[2017-08-24] MEDS: BENZOCAINE/MENTHOL LOZENG 1 EACH LOZENGE MUCOUS MEM PRN (19:51)
[2017-08-24] MEDS: ATORVASTATIN 10 MG TAB PO SCH (20:01)
[2017-08-24] MEDS: PROMETHAZ-COD 6.25-10 MG/5 ML 5 ML CUP PO PRN (20:03)
[2017-08-24 20:23] LABS: Glucose,Whole Blood 179 mg/dL (75-99)
[2017-08-25 05:56] LABS: Anisocytosis Slight; Basophils # (A) 0.1 k/uL (0-0.2); Basophils % (A) 1 %; CH 29.7; CHCM 31.3; Eosinophils # (A) 0.1 k/uL (0-0.7); Eosinophils % (A) 1 %; HDW 2.19; HGB 13.3 gm/dL (11.4-16.0); Luc # (Auto) 0.16; Luc % (Auto) 2; Lymphocytes # (A) 1.2 k/uL (1.0-4.8); Lymphocytes % (A) 17 %; MCH 29.7 pg (25.0-35.0); MCV 95.7 fL (80.0-100.0); Mean Platelet Volume 9.4; Monocytes # (A) 0.7 k/uL (0-1.0); Monocytes % (A) 10 %; Neutrophils # (A) 5.2 k/uL (1.3-7.7); Neutrophils % (A) 70 %; RBC 4.49 m/uL (3.80-5.40); WBC 7.4 k/uL (3.8-10.6); WBC (Perox) 7.46
[2017-08-25 06:14] LABS: ALT 86 U/L (9-52); AST 205 U/L (14-36); Alkaline Phosphatase 296 U/L (38-126); Anion Gap 5 mmol/L; Blood Urea Nitrogen 23 mg/dL (7-17); Calcium 7.8 mg/dL (8.4-10.2); Carbon Dioxide 31 mmol/L (22-30); Chloride 99 mmol/L (98-107); Glucose 100 mg/dL (74-99); Non-African American GFR(MDRD) >60 (>60 ml/min/1.73 sqM); Potassium 3.5 mmol/L (3.5-5.1); Sodium 135 mmol/L (137-145); Total Bilirubin 1.4 mg/dL (0.2-1.3); Total Protein 5.5 g/dL (6.3-8.2)
[2017-08-25 07:09] LABS: Glucose,Whole Blood 88 mg/dL (75-99)
[2017-08-25 07:36] VITALS: BP 106/76; PULSE 104; TEMP 97.6
[2017-08-25] MEDS: INSULIN LISPRO (humaLOG) 300 UNIT/3 ML VIAL SQ SCH ×2 (07:39→13:09)
[2017-08-25] MEDS: FUROSEMIDE 10 MG/ML 4 ML VIAL IV SCH ×2 (07:52→16:38)
[2017-08-25] MEDS: BENZOCAINE/MENTHOL LOZENG 1 EACH LOZENGE MUCOUS MEM PRN (07:53)
[2017-08-25 08:35] VITALS: RESP 19
[2017-08-25] MEDS: TAMOXIFEN 10 MG TAB PO SCH (09:17)
[2017-08-25] MEDS: METOPROLOL TARTRATE 50 MG TAB PO SCH (09:18)
[2017-08-25] MEDS: FAMOTIDINE 20 MG TAB PO SCH (09:18)
[2017-08-25] MEDS: DOCUSATE 100 MG CAP PO SCH (09:18)
[2017-08-25] MEDS: VENLAFAXINE HCL ER 150 MG CAP PO SCH (09:19)
[2017-08-25 12:12] LABS: Glucose,Whole Blood 173 mg/dL (75-99)
--- NOTE | 2017-08-25 14:14 | P.PN ---
Subjective Progress Note Date: 08/25/17 Principal diagnosis: Progressive dyspnea secondary to pulmonary metastasis from metastatic breast cancer. Small right-sided pleural effusion. 52-year-old female patient with known history of metastatic breast cancer was undergone bilateral mastectomy. The patient is also morbidly obese and she has obstructive sleep apnea maintained on CPAP therapy. The patient was furthermore diagnosed having pulmonary involvement with metastatic breast cancer. The patient had a right-sided pleural effusion that was drained and approximately a liter of fluid was removed and the fluid was positive for breast cancer. The patient also known to have some noted that his throughout the lung bedoya bilaterally and the largest nodule is measuring 7 mm in size and these are noncalcified and I think this is part of her metastatic disease. The left pleural space is clean. The patient has no pericardial effusion. [facility]. I think the plan was to start the patient on Herceptin with possibly an alternative chemotherapeutic agent. She was in my office and she was complaining of worsening shortness of breath. Her abdominal girth and dimensions were also enlarging. I performed a chest x-ray and there was no significant the recommendation of right-sided pleural effusion. Based on that, I sent this patient for an outpatient ultrasound the abdomen looking for ascites. The ultrasound was done this morning and the patient was found to have a 8 cm right-sided pleural effusion and the area was marked for thoracentesis. In addition there was small amount of ascites noted. The patient furthermore came into the emergency department she was hospitalized regarding her shortness of breath. As part of her workup a CTA of the chest was repeated and it showed no evidence of any acute pulmonary embolism, there was a small to moderate-sized right-sided pleural effusion, elevation of left hemidiaphragm, ascites and atelectasis in the right middle lobe. Echocardiogram from June 2017 shows no evidence of any pericardial effusion and the patient's left ventricular ejection fraction is well- preserved. Blood work shows no acute abnormalities. She has increased lower extremity edema in the patient's renal function is stable and normal and the patient has a component of hypomagnesemia, and hypoalbuminemia. LFTs are abnormal related to metastatic liver involvement with breast cancer. On 08/21/2017 patient seen oncology floor and follow-up. She states her breathing as slightly improved, she was able to sleep in bed last night on her right side. She is diuresing well on Lasix, she has lost around 3-1/2 kg since admission. Her bilateral lower extremity edema has improved. Lung sounds are clear with diminished air entry on the right lower lobe, positive dullness to percussion over right lower lobe. remains on oxygen at 2 L per nasal cannula with O2 sat around 95%. Low-grade fever this morning with T-max of 100.3F. she denies any significant chest congestion, or sputum production. Patient seen in follow-up 08/22/2017 patient seen in follow-up on oncology floor. She doesn't -700 fluid balance over the last 24 hours. Afebrile, on 2 L per nasal cannula with O2 sat at 96%. Hypertension this morning with systolic blood pressure in the 80s. Recovered. Most recent blood pressure from 11:00 is 105/73. CT abdomen and pelvis was reviewed by Dr. Tracy, and shows moderate amount of abdominal pelvic ascites. It is still having quite a bit of swelling in bilateral lower extremities, 1+ pitting edema. After discussion with interventional radiologist Dr. Tinsley, it was determined , the performance of paracentesis would not offer much benefit, and to continue with IV Lasix diuresis. We will continue with Lasix 20 mg IV every 12 hours provided the blood pressure will tolerate the diuresis. Otherwise doing well, ambulates to the bathroom, took a shower today without significant respiratory distress. On 08/23/2017 patient is seen in follow-up. She is in -300 mL fluid balance of the last 24 hours. Her weight is up 1/2 kg over the last 24 hours, edema in her bilateral lower extremities is improving, oxygenation is stable at 2 L per nasal cannula, I asked the nursing staff this morning to remove the oxygen and obtain a room air pulse ox. It was discussed with her that the amount of pleural fluid or lateral is very small, we will continue with IV diuretics. No further episodes of hypotension, patient is in agreement with the plan. Lung sounds diminished, with a few scattered crackles. On 08/24/2017 patient is on room air O2 sat at 95%. She has been afebrile, respirations are even and nonlabored. She tolerates ambulating without any significant respiratory distress. Lung sounds - better air entry bilaterally, no rhonchi, no wheezing. Patient's weight is down 1.1 kg from yesterday. Bilateral lower extremity edema 1+ pitting. We will increase diuresis over the next 24 hours to 40 mg IV every 8 hours. Otherwise patient is doing well, no specific complaints. We'll attempt to increase diuresis in the next 24 hours and hopefully will be able to discharge the patient home tomorrow. The patient was seen again today 08/25/2017 in follow-up on the oncology unit. She is currently sitting up in the chair at the bedside. She is awake and alert in no acute distress. She is maintaining good O2 saturations in the 90s on room air. She's been afebrile. Hemodynamically stable. She continues with some abdominal fullness and lower extremity edema but this is improved since admission. Objective - Vital Signs Vital signs: Vital Signs Temp 97.6 F 08/25/17 07:00 Pulse 104 H 08/25/17 08:20 Resp 19 08/25/17 08:20 BP 106/76 08/25/17 07:00 Pulse Ox 97 08/24/17 23:00 Intake & Output 08/24/17 08/25/17 08/25/17 18:59 06:59 18:59 Intake Total 585 Output Total 1450 550 150 Balance -865 -550 -150 Weight 110.1 kg 111 kg Intake: Oral 585 Output: Urine 1450 550 150 Other: Voiding Method Toilet Toilet Toilet # Voids 1,000 300 - Exam GENERAL EXAM: Alert, active, comfortable in no apparent distress. HEAD: Normocephalic. EYES: Normal reaction of pupils, equal size. NOSE: Clear with pink turbinates. THROAT: No erythema or exudates. NECK: No masses, no JVD. CHEST: No chest wall deformity. LUNGS: Proved air entry bilaterally, few scattered bibasilar crackles CVS: S1 and S2 normal with no audible mumurs, regular rhythm. ABDOMEN: No hepatosplenomegaly, normal bowel sounds, no guarding or rigidity. abdomen is large, soft, nontender SPINE: No scoliosis or deformity Extremities: 1+ pitting edema bilaterally in lower extremities SKIN: No rashes CENTRAL NERVOUS SYSTEM: No focal deficits, tone is normal in all 4 extremities. - Labs CBC & Chem 7: 08/25/17 05:30 08/25/17 05:30 Labs: Abnormal Lab Results - Last 24 Hours (Table) 08/24/17 08/24/17 08/25/17 Range/Units 16:50 20:21 05:30 RDW 17.0 H (11.5-15.5) % Plt Count 140 L (150-450) k/uL Sodium (137-145) mmol/L Carbon Dioxide (22-30) mmol/L BUN (7-17) mg/dL Glucose (74-99) mg/dL POC Glucose (mg/dL) 154 H 179 H (75-99) mg/dL Calcium (8.4-10.2) mg/dL Total Bilirubin (0.2-1.3) mg/dL AST (14-36) U/L ALT (9-52) U/L Alkaline Phosphatase (38-126) U/L Total Protein (6.3-8.2) g/dL Albumin (3.5-5.0) g/dL 08/25/17 08/25/17 Range/Units 05:30 12:09 RDW (11.5-15.5) % Plt Count (150-450) k/uL Sodium 135 L (137-145) mmol/L Carbon Dioxide 31 H (22-30) mmol/L BUN 23 H (7-17) mg/dL Glucose 100 H (74-99) mg/dL POC Glucose (mg/dL) 173 H (75-99) mg/dL Calcium 7.8 L (8.4-10.2) mg/dL Total Bilirubin 1.4 H (0.2-1.3) mg/dL AST 205 H (14-36) U/L ALT 86 H (9-52) U/L Alkaline Phosphatase 296 H (38-126) U/L Total Protein 5.5 L (6.3-8.2) g/dL Albumin 2.1 L (3.5-5.0) g/dL Microbiology - Last 24 Hours (Table) 08/21/17 14:49 Blood Culture - Preliminary Blood No Growth after 72 hours Assessment and Plan Assessment: Impression: 1 progressive dyspnea secondary to pulmonary metastasis from metastatic breast cancer. The patient has a malignant right-sided pleural effusion which is moderate in size in addition to multinodular involvement of the lungs, possibly secondary to parenchymal lung metastases. No evidence of any pulmonary embolism. Abdomen is distended with some mild ascites which probably is contributing to her shortness of breath. 2 chronic dyspnea and cough secondary to above 3 metastatic breast cancer with skeletal, liver, and lung involvement. The patient is under the care of Dr. dueñas, scans instituted. The patient is being considered for Herceptin. 4 abdominal distention/ascites 5 hypertension 6 hyperlipidemia 7 anxiety/panic 8 history of SVT. 9 diabetes mellitus 10 increased lower extremity edema 11 obesity 12 obstructive sleep apnea Plan: The patient was seen and evaluated by Dr. Tracy. She is cleared for discharge from the pulmonary standpoint. No plans for thoracentesis at this time. She'll remain on diuretics. She'll follow-up in our office in 1-2 weeks ' time we can repeat a chest x-ray then. She is however encouraged to call sooner with any worsening shortness of breath or other questions or concerns. I, the cosigning physician, have performed a history and physical examination on the patient. Lung sounds are diminished in the right lung base. Maintaining good O2 saturations in the 90s on room air. I have discussed the assessment and plan of care with my nurse practitioner, Fadia Stanford. I attest the above documented note as dictated by her.
--- NOTE | 2017-08-26 01:30 | P.PN ---
Subjective Progress Note Date: 08/24/17 Principal diagnosis: Metastatic breast cancer with small pleural effusion Patient is a 52-year-old female with known history of metastatic breast cancer and lung metastases admitted to the hospital with complaints of difficulty breathing. Patient had SOME of the chest showed small effusion. Pulmonary is not planning for any paracentesis at this time. Patient is being continued on IV diuresis. Patient is clinically improving leg swelling is much improved as well as subcutaneous abdominal wall edema. Patient otherwise denied any fever or chills. No commerce of chest pain or worsening short of breath. No other acute overnight issues. All other review of systems negative except the above Current medications reviewed Objective - Vital Signs Vital signs: Vital Signs Temp 99.3 F 08/24/17 19:57 Pulse 109 H 08/24/17 19:57 Resp 22 08/24/17 19:57 BP 118/83 08/24/17 19:57 Pulse Ox 93 L 08/24/17 19:57 Intake & Output 08/24/17 08/24/17 08/25/17 06:59 18:59 06:59 Intake Total 1080 585 Output Total 750 1450 Balance 330 -865 Weight 110.1 kg Intake: Oral 1080 585 Output: Urine 750 1450 Other: Voiding Method Toilet Toilet # Voids 1,000 - Exam PHYSICAL EXAMINATION: Patient is lying in the bed comfortably, no acute distress, awake alert and oriented.. HEENT: Normocephalic. Neck is supple. Pupils reactive. Nostrils clear. Oral cavity is moist. Ears reveal no drainage. Neck reveals no JVD, carotid bruits, or thyromegaly. CHEST EXAMINATION: Trachea is central. Symmetrical expansion. Bilateral decreased breath sounds basally. Minimal crackles noted left base. CARDIAC: Normal S1, S2 with no gallops. No murmurs ABDOMEN: Soft. Distended. Bowel sounds normal. No organomegaly. No abdominal bruits. Extremities: 3+ edema. No clubbing or cyanosis Neurologically awake, alert, oriented x3 with well-coordinated movements. No focal deficits noted Skin: No rash or skin lesions. Psychiatric: Cooperative. Nonsuicidal Musculoskeletal: No joint swelling or deformity. Normal range of motion. - Labs CBC & Chem 7: 08/25/17 05:30 08/25/17 05:30 Labs: Abnormal Lab Results - Last 24 Hours (Table) 08/23/17 08/24/17 08/24/17 Range/Units 06:20 06:55 06:55 MCHC 30.4 L (31.0-37.0) g/dL RDW 17.1 H (11.5-15.5) % Sodium 134 L (137-145) mmol/L Carbon Dioxide 32 H (22-30) mmol/L BUN 22 H (7-17) mg/dL POC Glucose (mg/dL) (75-99) mg/dL Hemoglobin A1c 7.4 H (4.0-6.0) % Calcium 8.0 L (8.4-10.2) mg/dL Total Bilirubin 1.5 H (0.2-1.3) mg/dL AST 208 H (14-36) U/L ALT 98 H (9-52) U/L Alkaline Phosphatase 300 H (38-126) U/L Total Protein 5.9 L (6.3-8.2) g/dL Albumin 2.2 L (3.5-5.0) g/dL 08/24/17 08/24/17 08/24/17 Range/Units 11:55 16:50 20:21 MCHC (31.0-37.0) g/dL RDW (11.5-15.5) % Sodium (137-145) mmol/L Carbon Dioxide (22-30) mmol/L BUN (7-17) mg/dL POC Glucose (mg/dL) 183 H 154 H 179 H (75-99) mg/dL Hemoglobin A1c (4.0-6.0) % Calcium (8.4-10.2) mg/dL Total Bilirubin (0.2-1.3) mg/dL AST (14-36) U/L ALT (9-52) U/L Alkaline Phosphatase (38-126) U/L Total Protein (6.3-8.2) g/dL Albumin (3.5-5.0) g/dL Microbiology - Last 24 Hours (Table) 08/21/17 14:49 Blood Culture - Preliminary Blood No Growth after 72 hours Assessment and Plan Assessment: #1 shortness of breath secondary to metastatic lung bases and small pleural effusion #2 anasarca, abdominal wall edema and bilateral lower exudate edema. improving with IV Lasix #3 metastatic breast cancer #4 diabetes type 2 #5 hypertension #6 hyperlipidemia #7 obstructive sleep apnea #8 anxiety and panic attacks Plan: Patient will be continued on IV Lasix 40 mg every 8 hourly. Continue to monitor strict I and O's and follow closely. Currently continue the current management. Pulmonary is on board and further admission based on clinical course. Patient is symptomatically improving. Time with Patient: Greater than 30
--- NOTE | 2017-08-26 01:33 | P.DS ---
Providers Date of admission: 08/20/17 13:39 Expected date of discharge: 08/25/17 Attending physician: Kalli Falcon Consults: 08/20/17 13:39 Consult Physician Urgent Consulting Provider: Carolina Tracy Consult Reason/Comments: Dyspnea, pleural effusion Do you want consulting provider notified?: Yes Primary care physician: [facility] Hospital Course: Discharge diagnosis #1 shortness of breath secondary to metastatic lung bases and small pleural effusion #2 anasarca, abdominal wall edema and bilateral lower exudate edema. improving with IV Lasix #3 metastatic breast cancer #4 diabetes type 2 #5 hypertension #6 hyperlipidemia #7 obstructive sleep apnea #8 anxiety and panic attacks Hospital course Patient is a 52-year-old female with known history of metastatic breast cancer and lung metastases admitted to the hospital with complaints of difficulty breathing. Patient had SOME of the chest showed small effusion. Pulmonary is not planning for any paracentesis at this time. Patient was continued on IV diuresis. Patient is clinically improving leg swelling is much improved as well as subcutaneous abdominal wall edema. Patient otherwise denied any fever or chills. No complaints of chest pain or worsening short of breath. Patient was continued on IV Lasix 40 mg every 8 hourly. Changed to Lasix 40 mg by mouth twice a day. Continue to monitor strict I and O's and followed closely. Patient was seen by pulmonary. Patient is cleared for discharge and continue the diuresis by mouth an outpatient. Patient advised to follow with primary care physician and oncologist. Discharge physical examination was done. Patient Condition at Discharge: Fair Plan - Discharge Summary Discharge Rx Participant: Yes New Discharge Prescriptions: Continue Venlafaxine HCl ER [Effexor XR] 150 mg PO DAILY Tamoxifen Citrate 20 mg PO DAILY Promethaz-Cod 6.25-10 mg/5 ml [Phenergan with Codeine] 5 ml PO Q8HR PRN PRN Reason: Cough Famotidine [Pepcid] 20 mg PO BID #60 tab Metoprolol Tartrate [Lopressor] 50 mg PO BID #60 tab Simvastatin [Zocor] 10 mg PO HS Loratadine [Claritin] 5 mg PO Q12HR PRN PRN Reason: Allergy Symptoms Changed Furosemide [Lasix] 40 mg PO BID #60 tab Discharge Medication List Venlafaxine HCl ER [Effexor XR] 150 mg PO DAILY 02/27/14 [History] Tamoxifen Citrate 20 mg PO DAILY 07/26/16 [History] Promethaz-Cod 6.25-10 mg/5 ml [Phenergan with Codeine] 5 ml PO Q8HR PRN [History] Famotidine [Pepcid] 20 mg PO BID #60 tab 07/13/17 [Rx] Metoprolol Tartrate [Lopressor] 50 mg PO BID #60 tab 07/13/17 [Rx] Simvastatin [Zocor] 10 mg PO HS 07/30/17 [History] Loratadine [Claritin] 5 mg PO Q12HR PRN 08/20/17 [History] Furosemide [Lasix] 40 mg PO BID #60 tab 08/25/17 [Rx] Follow up Appointment(s)/Referral(s): Eladio Tobar MD [Primary Care Provider] - 1-2 days (Office is closed, patient to call Sunday for an appointment.) Carolina Tracy MD [STAFF PHYSICIAN] - 09/03/17 1:30 pm [facility] Visiting Nurse, [NON-STAFF] - 1 Week Patient Instructions/Handouts: Furosemide (By mouth), Pleural Effusion (DC), Ascites (DC), Dyspnea (GEN) Activity/Diet/Wound Care/Special Instructions: pt would like discharge RX Discharge Disposition: HOME SELF-CARE
== END 2017-08-25 17:10 | disposition home or self-care (01) | DRG 181 ==
LOC: EC 09:14 → 5ONC 13:39
PROVIDERS: ADMIT Hospitalist; ATTEND Hospitalist
DX: C78.00 Secondary malignant neoplasm of unspecified lung (principal); J91.0 Malignant pleural effusion; C78.7 Secondary malignant neoplasm of liver and intrahepatic bile duct; C79.51 Secondary malignant neoplasm of bone; R18.8 Other ascites; E88.09 Other disorders of plasma-protein metabolism, not elsewhere classified; C50.919 Malignant neoplasm of unspecified site of unspecified female breast; E83.42 Hypomagnesemia; E66.01 Morbid (severe) obesity due to excess calories; E11.9 Type 2 diabetes mellitus without complications; E78.5 Hyperlipidemia, unspecified; F41.0 Panic disorder [episodic paroxysmal anxiety]; G47.33 Obstructive sleep apnea (adult) (pediatric); I10 Essential (primary) hypertension; Z79.899 Other long term (current) drug therapy; Z80.3 Family history of malignant neoplasm of breast; Z90.13 Acquired absence of bilateral breasts and nipples; Z92.21 Personal history of antineoplastic chemotherapy
CPT/HCPCS: 36415; 71010; 71020; 71275; 74177; 76700; 80053; 81001; 82550; 82553; 83036; 83735; 83880; 84484; 85025; 85379; 85610; 85730; 87040; 87086; 93005; 99285

== ENCOUNTER 2017-09-11 15:28 | Inpatient (IN) | payer BC ==
[2017-09-11] MEDS ORDERED: SODIUM CHLORIDE 0.9% 1,000 ML IV STA ×3 (15:42→16:14)
[2017-09-11] MEDS ORDERED: SODIUM CHLORIDE 0.9% 500 ML IV STA (15:42)
--- NOTE | 2017-09-11 15:47 | ED ---
General Adult HPI - General Stated complaint: Weakness Time Seen by Provider: 09/11/17 15:42 Source: RN notes reviewed, old records reviewed - History of Present Illness Initial comments: This is a 52-year-old female to the ER for evaluation today. Patient coming in with family for evaluation regarding weakness dehydration. Patient did see her oncology physician recently nausea medications and medications to help with her symptoms, Patient has been feeling severely weak, dehydrated and has had significant decrease in appetite - Related Data Home Medications Medication Instructions Recorded Confirmed Venlafaxine HCl ER [Effexor XR] 150 mg PO DAILY 02/27/14 09/11/17 Tamoxifen Citrate 20 mg PO DAILY 07/26/16 09/11/17 Simvastatin [Zocor] 10 mg PO HS 07/30/17 09/11/17 Loratadine [Claritin] 5 mg PO Q12HR PRN 08/20/17 09/11/17 Furosemide [Lasix] 20 mg PO MOWEFR 09/11/17 09/11/17 Magic Mouthwash 1:1 30 ml PO DIRECTED 09/11/17 09/11/17 Naproxen Sodium [Aleve] 220 - 440 mg PO BID PRN 09/11/17 09/11/17 Previous Rx's Medication Instructions Recorded Famotidine [Pepcid] 20 mg PO BID #60 tab 07/13/17 Metoprolol Tartrate [Lopressor] 50 mg PO BID #60 tab 07/13/17 Allergies Allergy/AdvReac Type Severity Reaction Status Date / Time Sulfa (Sulfonamide Allergy Itching Verified 09/11/17 15:52 Antibiotics) sulfamethoxazole Allergy Itching Verified 09/11/17 15:52 [From Bactrim] trimethoprim [From Bactrim] Allergy Itching Verified 09/11/17 15:52 Review of Systems ROS Statement: Those systems with pertinent positive or pertinent negative responses have been documented in the HPI. ROS Other: All systems not noted in ROS Statement are negative. Past Medical History Past Medical History: Cancer, Diabetes Mellitus, Hyperlipidemia, Hypertension, Skin Disorder, Sleep Apnea/CPAP/BIPAP, Supraventricular Tachycardia (SVT) Additional Past Medical History / Comment(s): Stage IV breast cancer with previous bilateral mastectomy and the patient has liver, bone, and lung involvement., obstructive sleep apnea, hypertension, hyperlipidemia, anxiety/ panic, SVT, diabetes mellitus, malignant pleural effusion, ascites History of Any Multi-Drug Resistant Organisms: None Reported Past Surgical History: Breast Surgery Additional Past Surgical History / Comment(s): Bilateral MASTECTOMY 2012, SINUS SURGERY, wisdom teeth out 2010, x2 thoracentesis Past Anesthesia/Blood Transfusion Reactions: No Reported Reaction Smoking Status: Never smoker - Past Family History Mother Family Medical History: Cancer Additional Family Medical History / Comment(s): breast CA Father Family Medical History: CVA/TIA General Exam General appearance: alert, lethargic, in distress, obese Head exam: Present: atraumatic, normocephalic, normal inspection Eye exam: Present: normal appearance, PERRL, EOMI. Absent: scleral icterus, conjunctival injection, periorbital swelling ENT exam: Present: normal exam, mucous membranes dry Neck exam: Present: normal inspection. Absent: tenderness, meningismus, lymphadenopathy Respiratory exam: Present: normal lung sounds bilaterally. Absent: respiratory distress, wheezes, rales, rhonchi, stridor Cardiovascular Exam: Present: normal rhythm, tachycardia, normal heart sounds. Absent: systolic murmur, diastolic murmur, rubs, gallop, clicks GI/Abdominal exam: Present: soft, normal bowel sounds. Absent: distended, tenderness, guarding, rebound, rigid Extremities exam: Present: normal inspection, full ROM, normal capillary refill. Absent: tenderness, pedal edema, joint swelling, calf tenderness Back exam: Present: normal inspection Neurological exam: Present: alert, oriented X3, CN II-XII intact Psychiatric exam: Present: normal affect, normal mood Skin exam: Present: warm, dry, intact, normal color. Absent: rash Course Vital Signs 09/11/17 09/11/17 09/11/17 15:48 16:00 16:30 Temperature 98.8 F Pulse Rate 102 H 100 97 Respiratory 24 22 22 Rate Blood Pressure 81/51 87/53 93/50 O2 Sat by Pulse 97 98 98 Oximetry 09/11/17 09/11/17 09/11/17 17:00 17:30 18:00 Temperature Pulse Rate 100 103 H 101 H Respiratory 22 22 22 Rate Blood Pressure 87/53 96/50 99/56 O2 Sat by Pulse 98 97 97 Oximetry 09/11/17 18:30 Temperature Pulse Rate 88 Respiratory 22 Rate Blood Pressure 100/61 O2 Sat by Pulse 99 Oximetry - Reevaluation(s) Reevaluation #1: 09/11/17 18:57 Patient has no significant clinical improvement EKG Findings - EKG Comments: EKG Findings:: EKG shows normal sinus rhythm rate of 83, AR 1:30, QRS 60, QTc 469 Medical Decision Making - Medical Decision Making 52 female DEL for evaluation regarding severe dehydration, positive abdominal exam for cellulitis, ascites, patient was pneumonia On x-ray, . Patient be admitted for IV antibiotics, and volume resuscitation - Lab Data Result diagrams: 09/11/17 17:00 09/11/17 17:00 Lab Results 09/11/17 09/11/17 09/11/17 Range/Units 17:00 17:00 17:00 WBC 0.5 L* (3.8-10.6) k/uL RBC 4.59 (3.80-5.40) m/uL Hgb 13.8 (11.4-16.0) gm/dL Hct 43.1 (34.0-46.0) % MCV 94.0 (80.0-100.0) fL MCH 30.0 (25.0-35.0) pg MCHC 31.9 (31.0-37.0) g/dL RDW 16.2 H (11.5-15.5) % Plt Count 79 L (150-450) k/uL Differential Comment Anisocytosis Slight PT (9.0-12.0) sec INR (<1.2) APTT (22.0-30.0) sec Sodium (137-145) mmol/L Potassium (3.5-5.1) mmol/L Chloride (98-107) mmol/L Carbon Dioxide (22-30) mmol/L Anion Gap mmol/L BUN (7-17) mg/dL Creatinine (0.52-1.04) mg/dL Est GFR (MDRD) Af Amer (>60 ml/min/1.73 sqM) Est GFR (MDRD) Non-Af (>60 ml/min/1.73 sqM) Glucose (74-99) mg/dL Plasma Lactic Acid Harinder (0.7-2.0) mmol/L Calcium (8.4-10.2) mg/dL Phosphorus (2.5-4.5) mg/dL Magnesium (1.6-2.3) mg/dL Total Bilirubin (0.2-1.3) mg/dL AST (14-36) U/L ALT (9-52) U/L Alkaline Phosphatase (38-126) U/L Ammonia (<30) umol/L Total Creatine Kinase 43 (30-135) U/L CK-MB (CK-2) 2.1 (0.0-2.4) ng/mL CK-MB (CK-2) Rel Index 4.9 Troponin I 0.015 (0.000-0.034) ng/mL Total Protein (6.3-8.2) g/dL Albumin (3.5-5.0) g/dL Urine Color Urine Appearance (Clear) Urine pH (5.0-8.0) Ur Specific [place] (1.001-1.035) Urine Protein (Negative) Urine Glucose (UA) (Negative) Urine Ketones (Negative) Urine Blood (Negative) Urine Nitrite (Negative) Urine Bilirubin (Negative) Urine Urobilinogen (<2.0) mg/dL Ur Leukocyte Esterase (Negative) Urine RBC (0-5) /hpf Urine WBC (0-5) /hpf Ur Squamous Epith Cells (0-4) /hpf Calcium Oxalate Crystal (None) /hpf Urine Bacteria (None) /hpf Hyaline Casts (0-2) /lpf Urine Mucus (None) /hpf Blood Type A Positive Blood Type Recheck CABO Indicated Antibody Screen NEGATIVE Spec Expiration Date 09/14/2017 - 229909/11/17 09/11/17 09/11/17 Range/Units 17:00 17:00 17:00 WBC (3.8-10.6) k/uL RBC (3.80-5.40) m/uL Hgb (11.4-16.0) gm/dL Hct (34.0-46.0) % MCV (80.0-100.0) fL MCH (25.0-35.0) pg MCHC (31.0-37.0) g/dL RDW (11.5-15.5) % Plt Count (150-450) k/uL Differential Comment Anisocytosis PT 13.3 H (9.0-12.0) sec INR 1.4 H (<1.2) APTT 57.9 H (22.0-30.0) sec Sodium 127 L (137-145) mmol/L Potassium 5.4 H (3.5-5.1) mmol/L Chloride 95 L (98-107) mmol/L Carbon Dioxide 25 (22-30) mmol/L Anion Gap 7 mmol/L BUN 58 H (7-17) mg/dL Creatinine 1.86 H (0.52-1.04) mg/dL Est GFR (MDRD) Af Amer 35 (>60 ml/min/1.73 sqM) Est GFR (MDRD) Non-Af 29 (>60 ml/min/1.73 sqM) Glucose 205 H (74-99) mg/dL Plasma Lactic Acid Harinder 4.3 H* (0.7-2.0) mmol/L Calcium 8.2 L (8.4-10.2) mg/dL Phosphorus 4.3 (2.5-4.5) mg/dL Magnesium 2.1 (1.6-2.3) mg/dL Total Bilirubin 2.7 H (0.2-1.3) mg/dL AST 91 H (14-36) U/L ALT 84 H (9-52) U/L Alkaline Phosphatase 251 H (38-126) U/L Ammonia 31 H (<30) umol/L Total Creatine Kinase (30-135) U/L CK-MB (CK-2) (0.0-2.4) ng/mL CK-MB (CK-2) Rel Index Troponin I (0.000-0.034) ng/mL Total Protein 5.4 L (6.3-8.2) g/dL Albumin 2.0 L (3.5-5.0) g/dL Urine Color Urine Appearance (Clear) Urine pH (5.0-8.0) Ur Specific [place] (1.001-1.035) Urine Protein (Negative) Urine Glucose (UA) (Negative) Urine Ketones (Negative) Urine Blood (Negative) Urine Nitrite (Negative) Urine Bilirubin (Negative) Urine Urobilinogen (<2.0) mg/dL Ur Leukocyte Esterase (Negative) Urine RBC (0-5) /hpf Urine WBC (0-5) /hpf Ur Squamous Epith Cells (0-4) /hpf Calcium Oxalate Crystal (None) /hpf Urine Bacteria (None) /hpf Hyaline Casts (0-2) /lpf Urine Mucus (None) /hpf Blood Type Blood Type Recheck Antibody Screen Spec Expiration Date 09/11/17 Range/Units 17:40 WBC (3.8-10.6) k/uL RBC (3.80-5.40) m/uL Hgb (11.4-16.0) gm/dL Hct (34.0-46.0) % MCV (80.0-100.0) fL MCH (25.0-35.0) pg MCHC (31.0-37.0) g/dL RDW (11.5-15.5) % Plt Count (150-450) k/uL Differential Comment Anisocytosis PT (9.0-12.0) sec INR (<1.2) APTT (22.0-30.0) sec Sodium (137-145) mmol/L Potassium (3.5-5.1) mmol/L Chloride (98-107) mmol/L Carbon Dioxide (22-30) mmol/L Anion Gap mmol/L BUN (7-17) mg/dL Creatinine (0.52-1.04) mg/dL Est GFR (MDRD) Af Amer (>60 ml/min/1.73 sqM) Est GFR (MDRD) Non-Af (>60 ml/min/1.73 sqM) Glucose (74-99) mg/dL Plasma Lactic Acid Harinder (0.7-2.0) mmol/L Calcium (8.4-10.2) mg/dL Phosphorus (2.5-4.5) mg/dL Magnesium (1.6-2.3) mg/dL Total Bilirubin (0.2-1.3) mg/dL AST (14-36) U/L ALT (9-52) U/L Alkaline Phosphatase (38-126) U/L Ammonia (<30) umol/L Total Creatine Kinase (30-135) U/L CK-MB (CK-2) (0.0-2.4) ng/mL CK-MB (CK-2) Rel Index Troponin I (0.000-0.034) ng/mL Total Protein (6.3-8.2) g/dL Albumin (3.5-5.0) g/dL Urine Color Dark Brown Urine Appearance Cloudy H (Clear) Urine pH 5.0 (5.0-8.0) Ur Specific [place] 1.018 (1.001-1.035) Urine Protein Trace H (Negative) Urine Glucose (UA) Trace H (Negative) Urine Ketones Negative (Negative) Urine Blood Negative (Negative) Urine Nitrite Negative (Negative) Urine Bilirubin 1+ H (Negative) Urine Urobilinogen 3.0 (<2.0) mg/dL Ur Leukocyte Esterase Negative (Negative) Urine RBC 2 (0-5) /hpf Urine WBC 4 (0-5) /hpf Ur Squamous Epith Cells 1 (0-4) /hpf Calcium Oxalate Crystal Rare H (None) /hpf Urine Bacteria Rare H (None) /hpf Hyaline Casts 122 H (0-2) /lpf Urine Mucus Rare H (None) /hpf Blood Type Blood Type Recheck Antibody Screen Spec Expiration Date - Radiology Data Radiology results: report reviewed (Chest x-ray positive for pneumonia), image reviewed Disposition Clinical Impression: Palpitations, Dyspnea, Ascites, Dehydration, Community acquired pneumonia, Hyponatremia, Cellulitis Disposition: ADMITTED IP TO THIS [facility] Condition: Fair
[2017-09-11] MEDS ORDERED: ONDANSETRON 4 MG/2 ML VIAL IVP STA (16:14)
[2017-09-11] MEDS ORDERED: ACETAMINOPHEN IV (For NPO) 1,000 MG in EMPTY BAG 1 BAG IVPB STA (16:14)
[2017-09-11 17:31] LABS: Anisocytosis Slight; Aty Lym Flag Marked; CH 30.6; CHCM 32.7; HCT 43.1 % (34.0-46.0); HDW 2.28; HGB 13.8 gm/dL (11.4-16.0); MCHC 31.9 g/dL (31.0-37.0); Mean Platelet Volume 10.5; RBC 4.59 m/uL (3.80-5.40); RDW 16.2 % (11.5-15.5); WBC (Perox) 0.69
[2017-09-11 17:33] LABS: INR 1.4 (<1.2); Partial Thromboplastin Time 57.9 sec (22.0-30.0); Prothrombin Time 13.3 sec (9.0-12.0)
[2017-09-11 17:34] LABS: WBC 0.5 k/uL (3.8-10.6)
[2017-09-11 17:35] LABS: Add Differential Manual Differential
--- NOTE | 2017-09-11 17:43 | XR ---
EXAMINATION TYPE: XR chest 2V DATE OF EXAM: 09/11/2017 COMPARISON: 08/23/2017 HISTORY: Short of breath TECHNIQUE: Frontal and lateral views of the chest are obtained. FINDINGS: There is pulmonary vascular congestion. There is blunting of costophrenic angles and more on the right side. There is right central venous catheter with tip in the superior vena cava. There a re chest leads. There are clips at the left axilla. IMPRESSION: Right pleural effusion and right lower lobe consolidation. Mild heart failure. There is probably small left pleural effusion. No significant change compared to last exam.
[2017-09-11 17:52] LABS: Calcium 8.2 mg/dL (8.4-10.2); Magnesium 2.1 mg/dL (1.6-2.3); Phosphorus 4.3 mg/dL (2.5-4.5); Potassium 5.4 mmol/L (3.5-5.1); Total Bilirubin 2.7 mg/dL (0.2-1.3); Total Protein 5.4 g/dL (6.3-8.2)
[2017-09-11 18:03] LABS: Creatine Kinase MB 2.1 ng/mL (0.0-2.4); Troponin I 0.015 ng/mL (0.000-0.034)
[2017-09-11 18:03] LABS: Appearance,Urine Cloudy (Clear); Bacteria,Urine Rare /hpf; Bilirubin,Urine 1+ (Negative); Calcium Oxalate Crystals,Urine Rare /hpf; Glucose,Urine (UA) Trace (Negative); Ketones,Urine Negative (Negative); Leukocyte Esterase,Urine Negative (Negative); Mucus,Urine Rare /hpf; Nitrite,Urine Negative (Negative); Particle Count 14297; Protein,Urine Trace (Negative); RBC,Urine 2 /hpf (0-5); Specific Gravity,Urine 1.018 (1.001-1.035); Squamous Epithelial Cell,Urine 1 /hpf (0-4); UA Billing (MACRO vs. MICRO) MICRO; WBC,Urine 4 /hpf (0-5)
[2017-09-11] MEDS ORDERED: PIPERACILLIN-TAZOBACTAM 3.375 GM in DEXTROSE/WATER 1 50ML.BAG IVPB STA (18:24)
[2017-09-11] MEDS ORDERED: LEVOFLOXACIN 750MG-D5W PMX 750 MG in DEXTROSE/WATER 1 150ML.BAG IVPB STA (18:24)
[2017-09-11] MEDS ORDERED: IPRATROPIUM-ALBUTEROL 3 ML NEB INHALATION PRN (18:24)
[2017-09-11] MEDS ORDERED: PNEUMONIA PROTOCOL UTILIZED 1 EACH MISC PO PRN (18:24)
[2017-09-11] MEDS ORDERED: SODIUM CHLORIDE 0.9% 1,000 ML IV SCH (18:30)
[2017-09-11] MEDS ORDERED: SODIUM CHLORIDE 0.9% 1,000 ML IV ONE ×2 (19:44→20:15)
[2017-09-11 20:34] LABS: Glucose,Whole Blood 172 mg/dL (75-99)
[2017-09-11] MEDS ORDERED: ACETAMINOPHEN IV (For NPO) 1,000 MG in EMPTY BAG 1 BAG IVPB PRN (21:15)
[2017-09-11] MEDS ORDERED: HYDROcodone/APAP 15 ML SOLUTION PO PRN (21:20)
[2017-09-11] MEDS ORDERED: MAG HYDROX/AL HYDROX/SIMETH 30 ML, diphenhydrAMINE ELIXIR 75 MG, LIDOCAINE VISCOUS 30 ML PO PRN ×3 (22:00)
[2017-09-11] MEDS ORDERED: NALOXONE 0.4 MG/ML 1 ML VIAL IV PRN (22:15)
--- NOTE | 2017-09-11 22:19 | HP ---
HISTORY AND PHYSICAL DATE OF ADMISSION: September 11, 2017 PRESENTING COMPLAINT: Weak and tired. HISTORY OF PRESENTING COMPLAINT: This is a very pleasant 52-year-old patient of Dr. Tobar now being followed by an oncologist out of [facility]. Patient with metastatic breast cancer with mets to the liver, bone, lung, stage IV. The patient did get a first chemotherapy about a week ago. The patient also known to have malignant pleural effusion that was tapped once. The patient's appetite has gone down and patient has developed ulcers in the mouth and feels significantly weak with difficulty getting out of the couch. Other chronic stable medical conditions include diabetes, hypertension, hyperlipidemia, obstructive sleep apnea, anxiety. The patient is significantly swollen that is with edema, feeling weak and tired. The patient has 2 daughters. at the bedside during history taking in the ER. REVIEW OF THE SYSTEM: Review of systems: Constitutional: Weak tired. Decreased appetite. HEENT none. Respiratory: Short of breath. Cardiovascular none. Gastrointestinal none. Genitourinary none. Musculoskeletal some pain in the joints. Dermatological breakdown of skin in the abdominal folds. Lymphatics none. Psychiatry a bit anxious. Neurological none. PAST MEDICAL HISTORY: Diabetes, hypertension, hyperlipidemia, obstructive sleep apnea, anxiety, metastatic breast cancer stage IV with mets to the liver, bone, malignant pleural effusion, lung. PAST SURGICAL HISTORY: Breast surgery, bilateral mastectomy, sinus surgery, paracentesis x2. Psych history of anxiety panic disorder. SOCIAL HISTORY: The patient is a home care nurse. . No smoking. No alcohol. FAMILY HISTORY: Breast cancer. HOME MEDICATIONS: 1. Effexor XR 150 mg p.o. daily. 2. Tamoxifen 20 mg p.o. daily. 3. Zocor 10 mg q.h.s. 4. Naproxen 2 full 20 mg b.i.d. p.r.n. 5. Lopressor 50 mg b.i.d. 6. Magic mouthwash 1:130 mL as directed. 7. Claritin 5 mg p.o. q.12. 8. Lasix 20 mg p.o. Sunday, Sunday and Sunday. 9. Pepcid 20 mg p.o. b.i.d. ALLERGIES: SULFUR. PHYSICAL EXAMINATION: Vital signs on presentation temperature 98.8, pulse 102, respiration 24, blood pressure 87/51, pulse ox 97% on 2 L. GENERAL APPEARANCE: Well built, BMI 41.6. Lying in bed, short of breath. Tired appearing. Eyes: Pupils equal. Conjunctivae pale. HEENT: Oral cavity showing aphthous ulcers. NECK: Short, thick. JVD unable to assess. Mass not palpable respiratory effort increased lungs, distant decreased breath sounds. Cardiovascular: HEART: Sounds muffled. Anasarca: Diffuse edema present. ABDOMEN: Soft nontender. Liver and spleen not palpable. Lymphatics: No lymph node palpable in neck or axillae. PSYCHIATRY: Alert and oriented x3. Mood and affect anxious appearing. Dermatological breakdown of skin between abdominal folds with moist red. INVESTIGATIONS: White count 0.5, hemoglobin 13.8, platelets 79. Potassium 5.4, BUN 58, creatinine 1.86, lactic acid 4.3, ammonia 31, albumin 2.0 2.0 2.0. The patient's BUN and creatinine on 07/25/2017 was three sets, 0.9090. ASSESSMENT: 1. Acute renal failure with creatinine going up from 0.9 to 1.86. This could also could be from hypotension. It is to be noted that the patient is also on Aleve at home and also on Lasix. 2. Morbid obesity BMI 41.6. 3. Item metastatic breast cancer, stage IV with metastatic liver, bone, malignant pleural effusion and anasarca. 4. Essential hypertension history of. 5. Hypotension right nerve from volume loss and volume contraction. 6. Hyperlipidemia. 7. Obstructive sleep apnea uses CPAP machine. 8. Anxiety, not otherwise specified. 9. Right pleural effusion, likely malignant. PLAN: Patient's blood pressure is rather running low, intravascular depletion given his probably volume contraction, decreased oral intake and probably made worse with the fact the patient is on Levophed and Lasix. The patient probably needs to be fluid resuscitated and maybe give a pressors. Consultation to Critical Care will be done and so to Oncology. Keep a close eye on the renal function. Renal function will also consult Nephrology and discussed same. Care was discussed with the patient. Daughter is at the bedside. Advanced care planning did have a lengthy talk with the patient and the daughters and given the patient's guarded prognosis due to stage IV disease and the patient agreed to proceed to make a code status of DO NOT RESUSCITATE. This additionally took about 20 minutes in addition to the history and physical. The patient being admitted to the ICU. Copy to Dr. Tobar. MMODL / IJN: [id number] /
[2017-09-12 05:45] LABS: Anisocytosis Slight; Aty Lym Flag Marked; CH 30.5; CHCM 31.1; HCT 43.9 % (34.0-46.0); HDW 2.28; HGB 13.6 gm/dL (11.4-16.0); Hypochromasia Slight; Large Platelets Flag Slight; MCH 30.5 pg (25.0-35.0); MCV 98.6 fL (80.0-100.0); Macrocytosis Slight; Mean Platelet Volume 11.2; RBC 4.45 m/uL (3.80-5.40); RDW 17.9 % (11.5-15.5); WBC (Perox) 0.98
[2017-09-12 06:03] LABS: Calcium 7.6 mg/dL (8.4-10.2); Magnesium 1.9 mg/dL (1.6-2.3); Potassium 5.2 mmol/L (3.5-5.1)
[2017-09-12 06:10] LABS: WBC 0.9 k/uL (3.8-10.6)
[2017-09-12 07:25] LABS: Add Differential Manual Differential
[2017-09-12 07:35] LABS: Manual Review Performed
[2017-09-12 07:37] LABS: Target Cells Present
--- NOTE | 2017-09-12 07:53 | XR ---
EXAMINATION TYPE: XR chest 1V DATE OF EXAM: 09/12/2017 COMPARISON: Prior chest x-ray 09/11/2017 HISTORY: Pneumonia TECHNIQUE: Single frontal view of the chest is obtained. FINDINGS: Port-A-Cath is present in the right pectoral region, distal tip is overlying the superior vena cava. Surgical clips present in the bilateral axillary regions. Right hemidiaphragm is elevated as on prior. Heart is partially obscured. No pneumothorax evident. Patient is rotated. Lung volumes a re low. Interstitium prominent. IMPRESSION: Expiratory rotated exam, follow-up suggested.
[2017-09-12] MEDS ORDERED: PIPERACILLIN-TAZOBACTAM 3.375 GM in DEXTROSE/WATER 1 50ML.BAG IVPB SCH ×2 (08:00→12:00)
[2017-09-12] MEDS ORDERED: Magnesium Replacement Protocol 1 EACH MISC MISCELLANE PRN (08:01)
[2017-09-12] MEDS: MAGNESIUM SULFATE-D5W PMX 1 GM in DEXTROSE/WATER 1 100ML.BAG IVPB SCH ×2 (08:59→10:12)
[2017-09-12] MEDS ORDERED: ENOXAPARIN 40 MG/0.4 ML SYRINGE SQ SCH (09:00)
[2017-09-12] MEDS: HYDROmorphone 0.5 MG/0.5 ML SYRINGE IVP PRN ×3 (10:18→21:16)
[2017-09-12] MEDS: DAPTOmycin IN 0.9% NACL 500 MG/10 ML SYRINGE IVP SCH (10:47)
[2017-09-12 11:06] VITALS: BMI 43.2
--- NOTE | 2017-09-12 11:07 | P.NPCON ---
History of Present Illness - Reason for Consult acute renal failure - History of Present Illness Reason for consultation: Acute kidney injury History of present illness: Patient is a 52-year-old female with history of breast cancer with metastasis who presented to the hospital with nausea vomiting and diarrhea. Patient states she had her chemotherapy on Sunday and hasn't been feeling well since. She hasn't been eating and drinking much the last few days and has been having persistent diarrhea as well as vomiting. She was noted to be hypotensive with systolic blood pressure in the 70s to 80s on admission. She's also noted to be tachycardic and had an elevated lactic acid level of 4.3. She is currently awake and alert. She is sitting up in bed in the intensive care unit. She denies any chest pain or shortness of breath. She did notice decrease in her urine output prior to admission. Her current urine output is about 30 mL an hour. She did receive 5 L of fluid bolus and is currently maintained on normal saline at 100 mL an hour. She has not required vasopressor so far. She was taking diuretics at home and also admits to taking Aleve for the last 2-3 days. She denies any prior history of kidney disease. Her creatinine was elevated at 1.86 on admission and is 1.80 today. Her most recent blood pressure is 98/54. Denies syncopal episodes. Vital signs are stable. General: The patient appeared well nourished and normally developed. HEENT: Head exam is unremarkable. Neck is without jugular venous distension. LUNGS: Lungs are clear to auscultation and percussion. Breath sounds decreased. HEART: Rate and Rhythm are regular. First and second heart sounds normal. No murmurs, rubs or gallops. ABDOMEN: Abdominal exam reveals normal bowel sounds. Non-tender and non- distended. No evidence of peritonitis. EXTREMITITES: No edema. Her lower extremities are wrapped. No obvious drainage. Past Medical History Past Medical History: Cancer, Diabetes Mellitus, Hyperlipidemia, Hypertension, Skin Disorder, Sleep Apnea/CPAP/BIPAP, Supraventricular Tachycardia (SVT) Additional Past Medical History / Comment(s): Stage IV breast cancer with previous bilateral mastectomy and the patient has liver, bone, and lung involvement., obstructive sleep apnea, hypertension, hyperlipidemia, anxiety/ panic, SVT, diabetes mellitus, malignant pleural effusion, ascites History of Any Multi-Drug Resistant Organisms: None Reported Past Surgical History: Breast Surgery Additional Past Surgical History / Comment(s): Bilateral MASTECTOMY 2012, SINUS SURGERY, wisdom teeth out 2010, x2 thoracentesis, nasal surgery ~25yrs ago. 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 Smoking Status: Never smoker Past Alcohol Use History: None Reported Past Drug Use History: None Reported - Past Family History Mother Family Medical History: Cancer Additional Family Medical History / Comment(s): breast CA Father Family Medical History: CVA/TIA Medications and Allergies Home Medications Medication Instructions Recorded Confirmed Type Venlafaxine HCl ER [Effexor XR] 150 mg PO DAILY 02/27/14 09/11/17 History Tamoxifen Citrate 20 mg PO DAILY 07/26/16 09/11/17 History Famotidine [Pepcid] 20 mg PO BID #60 tab 07/13/17 09/11/17 Rx Metoprolol Tartrate [Lopressor] 50 mg PO BID #60 tab 07/13/17 09/11/17 Rx Simvastatin [Zocor] 10 mg PO HS 07/30/17 09/11/17 History Loratadine [Claritin] 5 mg PO Q12HR PRN 08/20/17 09/11/17 History Furosemide [Lasix] 20 mg PO MOWEFR 09/11/17 09/11/17 History Magic Mouthwash 1:1 30 ml PO DIRECTED 09/11/17 09/11/17 History Naproxen Sodium [Aleve] 220 - 440 mg PO BID PRN 09/11/17 09/11/17 History Allergies Allergy/AdvReac Type Severity Reaction Status Date / Time Sulfa (Sulfonamide Allergy Itching Verified 09/11/17 15:52 Antibiotics) sulfamethoxazole Allergy Itching Verified 09/11/17 15:52 [From Bactrim] trimethoprim [From Bactrim] Allergy Itching Verified 09/11/17 15:52 Physical Exam Vitals: Vital Signs Temp Pulse Resp BP Pulse Ox 09/12/17 08:00 130 H 25 H 98/54 95 09/12/17 07:00 133 H 18 112/54 96 09/12/17 06:00 130 H 14 110/53 98 09/12/17 05:00 126 H 14 110/53 97 09/12/17 04:00 98.9 F 125 H 14 85/65 97 09/12/17 03:00 120 H 14 82/60 96 09/12/17 02:00 117 H 16 78/58 96 09/12/17 01:00 124 H 16 80/58 94 L 09/12/17 00:00 98.3 F 113 H 14 82/60 97 09/11/17 23:00 119 H 16 84/55 96 09/11/17 22:00 115 H 16 81/53 98 09/11/17 21:00 98.3 F 107 H 16 94/56 97 09/11/17 20:36 109 H 09/11/17 20:13 102 H 24 71/50 97 09/11/17 20:00 98 F 106 H 22 91/56 98 09/11/17 19:38 97.3 F L 104 H 18 84/50 100 09/11/17 18:30 88 22 100/61 99 09/11/17 18:00 101 H 22 99/56 97 09/11/17 17:30 103 H 22 96/50 97 09/11/17 17:00 100 22 87/53 98 09/11/17 16:30 97 22 93/50 98 09/11/17 16:00 100 22 87/53 98 09/11/17 15:48 98.8 F 102 H 24 81/51 97 Intake and Output 09/11/17 09/12/17 09/12/17 22:59 06:59 14:59 Intake Total 1000 100 Output Total 240 30 Balance 760 70 Intake: IV 1000 100 Levofloxacin 750Mg-D5w 150 Pmx 750 mg In Dextrose/ Water 1 150ml.bag @ 100 mls/hr IVPB ONCE STA Rx#: [id number] Piperacillin-Tazobactam 3 50 .375 gm In Dextrose/Water 1 50ml.bag @ 12.5 mls/hr IVPB ONCE STA Rx#: [id number] Sodium Chloride 0.9% 1, 800 100 000 ml @ 100 mls/hr IV . Q10H MATT Rx#:[id number] Output: Urine 240 30 Other: Voiding Method Bedside Commode Indwelling Catheter Weight 113.398 kg 118 kg Results - Lab Results Most recent lab results Calcium 7.6 mg/dL (8.4-10.2) L 09/12/17 05:20 Phosphorus 4.0 mg/dL (2.5-4.5) 09/12/17 05:20 Magnesium 1.9 mg/dL (1.6-2.3) 09/12/17 05:20 09/12/17 05:20 09/12/17 05:20 Assessment and Plan Plan: Assessment: #1. Nonoliguric acute kidney injury secondary to ischemic ATN secondary to hypotension and further worsened with the use of nonsteroidals as well as diuretics. Also concern for neutropenic sepsis. Creatinine was elevated at 1.86 on admission and is 1.80 today. Urinalysis is quite benign. #2. Hypovolemic hyponatremia improved with IV hydration. #3. Hypotension with concern for neutropenic sepsis, maintained on IV antibiotics. Improved. #4. Lactic acidosis secondary to hypoperfusion. #5. Breast cancer with metastasis. Plan: I will increase rate of normal saline to 125 mL an hour. Avoid nephrotoxic agents and hypotensive episodes. Follow-up cultures. Antibiotics per infectious disease recommendations. Continue to monitor renal function and urine output. No need for renal replacement therapy at this time. Thank you for the consultation. I will continue to follow the patient with you during her hospital stay.
[2017-09-12] MEDS: SODIUM CHLORIDE 0.9% 1,000 ML IV SCH ×2 (12:49→17:41)
[2017-09-12] MEDS: FILGRASTIM-SNDZ 480 MCG/0.8 ML SYRINGE SQ SCH (13:35)
--- NOTE | 2017-09-12 14:14 | P.CONS ---
History of Present Illness - Reason for Consult Consult date: 09/12/17 Wound care - History of Present Illness This is a 52-year-old female gives history that she has had breast cancer status post radical left mastectomy followed by right mastectomy initially treated for years ago when she was first diagnosed and was cancer free until this summer. She now has metastatic disease to liver, bone, lungs. She had a recent hospitalization on August 20 through August 25, treated for malignant right-sided pleural effusion and was status post 2 thoracentesis. Patient was also found to have ascites at that time which is continued but no paracentesis has been done. She states that on Sunday she was just restarted on chemotherapy at [facility] in [place]. She has had nausea and vomiting and watery diarrhea 2-3 times. She states she's has a cough with phlegm production along with fever and chills. She came in to [facility] on September 11 with weakness and dehydration and was found to have right pleural effusion with right lower lobe consolidation, mild heart failure probable small left pleural effusion with no significant change from her last films. She was found to be afebrile, heart rate was running in the 120s to 130s and she was hypotensive. White count initially 0.5 and platelet count 79 and now at 52. Electrolyte abnormalities with hypo-the tree Kylah and hyperkalemia with acute kidney injury with BUN of 59 creatinine 1.8. Lactic acid was actually elevated at 4.3. Liver function tests were all elevated. His urinalysis was cloudy dark brown with nitrate and leukoesterase negative. Blood cultures status received and urine cultures in progress. She was started on Levaquin and Zosyn and admitted into the intensive care unit. She has had a total of 5 L of IV fluids but has not been started on vasopressors. Patient has significant wounds to bilateral groin, right upper thigh, bilateral feet that she has had for about one month. She states a significantly worsened after receiving her chemotherapy on Sunday. Versed also states that she is not able to swallow and speech therapy has been consult it. She has consult in place for Dr. Tracy, oncology and nephrology. Review of Systems All systems: negative Constitutional: Reports anorexia, Reports chills, Reports fatigue, Reports fever , Reports lethargy, Reports poor appetite, Reports weakness Eyes: denies blurred vision, denies pain Ears, nose, mouth and throat: Reports dysphagia, Denies headache, Denies sore throat Cardiovascular: Reports edema, Reports leg edema, Reports shortness of breath, Denies chest pain Respiratory: Denies cough Gastrointestinal: Reports diarrhea, Reports nausea, Reports vomiting, Denies abdominal pain Genitourinary: Denies dysuria, Denies hematuria Musculoskeletal: Denies myalgias Integumentary: Reports wounds, Denies pruritus, Denies rash Neurological: Denies numbness, Denies weakness Psychiatric: Denies anxiety, Denies depression Endocrine: Denies fatigue, Denies weight change Past Medical History Past Medical History: Cancer, Diabetes Mellitus, Hyperlipidemia, Hypertension, Skin Disorder, Sleep Apnea/CPAP/BIPAP, Supraventricular Tachycardia (SVT) Additional Past Medical History / Comment(s): Stage IV breast cancer with previous bilateral mastectomy and the patient has liver, bone, and lung involvement., obstructive sleep apnea, hypertension, hyperlipidemia, anxiety/ panic, SVT, diabetes mellitus, malignant pleural effusion, ascites History of Any Multi-Drug Resistant Organisms: None Reported Past Surgical History: Breast Surgery Additional Past Surgical History / Comment(s): Bilateral MASTECTOMY 2012, SINUS SURGERY, wisdom teeth out 2010, x2 thoracentesis, nasal surgery ~25yrs ago. 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 Smoking Status: Never smoker Past Alcohol Use History: None Reported Past Drug Use History: None Reported - Past Family History Mother Family Medical History: Cancer Additional Family Medical History / Comment(s): breast CA Father Family Medical History: CVA/TIA Medications and Allergies Home Medications Medication Instructions Recorded Confirmed Type Venlafaxine HCl ER [Effexor XR] 150 mg PO DAILY 02/27/14 09/13/17 History Tamoxifen Citrate 20 mg PO DAILY 07/26/16 09/13/17 History Famotidine [Pepcid] 20 mg PO BID #60 tab 07/13/17 09/13/17 Rx Metoprolol Tartrate [Lopressor] 50 mg PO BID #60 tab 07/13/17 09/13/17 Rx Simvastatin [Zocor] 10 mg PO HS 07/30/17 09/13/17 History Loratadine [Claritin] 5 mg PO Q12HR PRN 08/20/17 09/13/17 History Furosemide [Lasix] 20 mg PO MOWEFR 09/11/17 09/13/17 History Magic Mouthwash 1:1 30 ml PO DIRECTED 09/11/17 09/13/17 History Naproxen Sodium [Aleve] 220 - 440 mg PO BID PRN 09/11/17 09/13/17 History Allergies Allergy/AdvReac Type Severity Reaction Status Date / Time Sulfa (Sulfonamide Allergy Itching Verified 09/13/17 15:25 Antibiotics) sulfamethoxazole Allergy Itching Verified 09/13/17 15:25 [From Bactrim] trimethoprim [From Bactrim] Allergy Itching Verified 09/13/17 15:25 Physical Exam Vitals: Vital Signs Temp Pulse Resp BP Pulse Ox 09/12/17 08:00 130 H 25 H 98/54 95 09/12/17 07:00 133 H 18 112/54 96 09/12/17 06:00 130 H 14 110/53 98 09/12/17 05:00 126 H 14 110/53 97 09/12/17 04:00 98.9 F 125 H 14 85/65 97 09/12/17 03:00 120 H 14 82/60 96 09/12/17 02:00 117 H 16 78/58 96 09/12/17 01:00 124 H 16 80/58 94 L 09/12/17 00:00 98.3 F 113 H 14 82/60 97 09/11/17 23:00 119 H 16 84/55 96 09/11/17 22:00 115 H 16 81/53 98 09/11/17 21:00 98.3 F 107 H 16 94/56 97 09/11/17 20:36 109 H 09/11/17 20:13 102 H 24 71/50 97 09/11/17 20:00 98 F 106 H 22 91/56 98 09/11/17 19:38 97.3 F L 104 H 18 84/50 100 09/11/17 18:30 88 22 100/61 99 09/11/17 18:00 101 H 22 99/56 97 09/11/17 17:30 103 H 22 96/50 97 09/11/17 17:00 100 22 87/53 98 09/11/17 16:30 97 22 93/50 98 09/11/17 16:00 100 22 87/53 98 09/11/17 15:48 98.8 F 102 H 24 81/51 97 Intake and Output 09/11/17 09/12/17 09/12/17 22:59 06:59 14:59 Intake Total 1000 100 Output Total 240 30 Balance 760 70 Intake: IV 1000 100 Levofloxacin 750Mg-D5w 150 Pmx 750 mg In Dextrose/ Water 1 150ml.bag @ 100 mls/hr IVPB ONCE STA Rx#: [id number] Piperacillin-Tazobactam 3 50 .375 gm In Dextrose/Water 1 50ml.bag @ 12.5 mls/hr IVPB ONCE STA Rx#: [id number] Sodium Chloride 0.9% 1, 800 100 000 ml @ 100 mls/hr IV . Q10H MATT Rx#:[id number] Output: Urine 240 30 Other: Voiding Method Bedside Commode Indwelling Catheter Weight 113.398 kg 118 kg Gen: This is a morbidly obese 52-year-old female. She is sitting up in the ICU bed and appears to be uncomfortable and in moderate distress HEENT: Head is atraumatic, normocephalic. Pupils equal, round. Sclerae is anicteric. Conjunctiva pale. NECK: Supple. No JVD. No lymphadenopathy. No thyromegaly. LUNGS: Scattered rhonchi. No intercostal retractions. HEART: Regular rate and rhythm. No murmur. Tachycardic. Mediport in the anterior right upper chest wall. ABDOMEN: Morbidly obese Soft. Bowel sounds are present. No masses. No tenderness. Bright red lesions and excoriation under the abdominal fold on bilateral groins most severe on the right with spread into the proximal anterior thigh area with serosanguineous drainage. Nava catheter draining cloudy dawn urine in place. EXTREMITIES: 3+ pedal edema bilateral lower extremities with multiple small wounds noted to bilateral feet. Please see nursing documentation for details. NEUROLOGICAL: Patient is awake, alert and oriented x3. Generalized severe weakness. Results Results: Laboratory Results WBC 0.9 k/uL (3.8-10.6) L* 09/12/17 05:20 RBC 4.45 m/uL (3.80-5.40) 09/12/17 05:20 Hgb 13.6 gm/dL (11.4-16.0) 09/12/17 05:20 Hct 43.9 % (34.0-46.0) 09/12/17 05:20 MCV 98.6 fL (80.0-100.0) 09/12/17 05:20 MCH 30.5 pg (25.0-35.0) 09/12/17 05:20 MCHC 31.0 g/dL (31.0-37.0) 09/12/17 05:20 RDW 17.9 % (11.5-15.5) H 09/12/17 05:20 Plt Count 52 k/uL (150-450) L 09/12/17 05:20 Differential Comment 09/12/17 05:20 Manual Slide Review Performed 09/12/17 05:20 Hypochromasia Slight 09/12/17 05:20 Poikilocytosis (manual Present 09/12/17 05:20 Anisocytosis Slight 09/12/17 05:20 Macrocytosis Slight 09/12/17 05:20 Target Cells Present 09/12/17 05:20 PT 13.3 sec (9.0-12.0) H 09/11/17 17:00 INR 1.4 (<1.2) H 09/11/17 17:00 APTT 57.9 sec (22.0-30.0) H 09/11/17 17:00 Sodium 130 mmol/L (137-145) L 09/12/17 05:20 Potassium 5.2 mmol/L (3.5-5.1) H 09/12/17 05:20 Chloride 100 mmol/L (98-107) 09/12/17 05:20 Carbon Dioxide 24 mmol/L (22-30) 09/12/17 05:20 Anion Gap 6 mmol/L 09/12/17 05:20 BUN 59 mg/dL (7-17) H 09/12/17 05:20 Creatinine 1.80 mg/dL (0.52-1.04) H 09/12/17 05:20 Est GFR (MDRD) Af Amer 36 (>60 ml/min/1.73 sqM) 09/12/17 05:20 Est GFR (MDRD) Non-Af 30 (>60 ml/min/1.73 sqM) 09/12/17 05:20 Glucose 132 mg/dL (74-99) H 09/12/17 05:20 POC Glucose (mg/dL) 172 mg/dL (75-99) H 09/11/17 20:33 POC Glu Home Health Rn ID Hellen Haynes 09/11/17 20:33 Lactic Ac Sepsis Rflx Y 09/11/17 17:37 Plasma Lactic Acid Harinder 4.2 mmol/L (0.7-2.0) H* 09/11/17 21:50 Calcium 7.6 mg/dL (8.4-10.2) L 09/12/17 05:20 Phosphorus 4.0 mg/dL (2.5-4.5) 09/12/17 05:20 Magnesium 1.9 mg/dL (1.6-2.3) 09/12/17 05:20 Total Bilirubin 2.7 mg/dL (0.2-1.3) H 09/11/17 17:00 AST 91 U/L (14-36) H 09/11/17 17:00 ALT 84 U/L (9-52) H 09/11/17 17:00 Alkaline Phosphatase 251 U/L (38-126) H 09/11/17 17:00 Ammonia 31 umol/L (<30) H 09/11/17 17:00 Total Creatine Kinase 43 U/L (30-135) 09/11/17 17:00 CK-MB (CK-2) 2.1 ng/mL (0.0-2.4) 09/11/17 17:00 CK-MB (CK-2) Rel Index 4.9 09/11/17 17:00 Troponin I 0.015 ng/mL (0.000-0.034) 09/11/17 17:00 Total Protein 5.4 g/dL (6.3-8.2) L 09/11/17 17:00 Albumin 2.0 g/dL (3.5-5.0) L 09/11/17 17:00 Urine Color Dark Brown 09/11/17 17:40 Urine Appearance Cloudy (Clear) H 09/11/17 17:40 Urine pH 5.0 (5.0-8.0) 09/11/17 17:40 Ur Specific [place] 1.018 (1.001-1.035) 09/11/17 17:40 Urine Protein Trace (Negative) H 09/11/17 17:40 Urine Glucose (UA) Trace (Negative) H 09/11/17 17:40 Urine Ketones Negative (Negative) 09/11/17 17:40 Urine Blood Negative (Negative) 09/11/17 17:40 Urine Nitrite Negative (Negative) 09/11/17 17:40 Urine Bilirubin 1+ (Negative) H 09/11/17 17:40 Urine Urobilinogen 3.0 mg/dL (<2.0) 09/11/17 17:40 Ur Leukocyte Esterase Negative (Negative) 09/11/17 17:40 Urine RBC 2 /hpf (0-5) 09/11/17 17:40 Urine WBC 4 /hpf (0-5) 09/11/17 17:40 Ur Squamous Epith Cells 1 /hpf (0-4) 09/11/17 17:40 Calcium Oxalate Crystal Rare /hpf (None) H 09/11/17 17:40 Urine Bacteria Rare /hpf (None) H 09/11/17 17:40 Hyaline Casts 122 /lpf (0-2) H 09/11/17 17:40 Urine Mucus Rare /hpf (None) H 09/11/17 17:40 Blood Type A Positive 09/11/17 17:00 Blood Type Confirm A Positive 09/11/17 21:50 Blood Type Recheck CABO Indicated 09/11/17 17:00 Antibody Screen NEGATIVE 09/11/17 17:00 Spec Expiration Date 09/14/2017229909/11/17 17:00 CBC & Chem 7: 09/13/17 04:29 09/13/17 04:29 Labs: Abnormal Lab Results - Last 24 Hours (Table) 09/11/17 09/11/17 09/11/17 Range/Units 17:00 17:00 17:00 WBC 0.5 L* (3.8-10.6) k/uL RDW 16.2 H (11.5-15.5) % Plt Count 79 L (150-450) k/uL PT (9.0-12.0) sec INR (<1.2) APTT (22.0-30.0) sec Sodium 127 L (137-145) mmol/L Potassium 5.4 H (3.5-5.1) mmol/L Chloride 95 L (98-107) mmol/L BUN 58 H (7-17) mg/dL Creatinine 1.86 H (0.52-1.04) mg/dL Glucose 205 H (74-99) mg/dL POC Glucose (mg/dL) (75-99) mg/dL Plasma Lactic Acid Harinder 4.3 H* (0.7-2.0) mmol/L Calcium 8.2 L (8.4-10.2) mg/dL Total Bilirubin 2.7 H (0.2-1.3) mg/dL AST 91 H (14-36) U/L ALT 84 H (9-52) U/L Alkaline Phosphatase 251 H (38-126) U/L Ammonia 31 H (<30) umol/L Total Protein 5.4 L (6.3-8.2) g/dL Albumin 2.0 L (3.5-5.0) g/dL Urine Appearance (Clear) Urine Protein (Negative) Urine Glucose (UA) (Negative) Urine Bilirubin (Negative) Calcium Oxalate Crystal (None) /hpf Urine Bacteria (None) /hpf Hyaline Casts (0-2) /lpf Urine Mucus (None) /hpf 09/11/17 09/11/17 09/11/17 Range/Units 17:00 17:40 20:33 WBC (3.8-10.6) k/uL RDW (11.5-15.5) % Plt Count (150-450) k/uL PT 13.3 H (9.0-12.0) sec INR 1.4 H (<1.2) APTT 57.9 H (22.0-30.0) sec Sodium (137-145) mmol/L Potassium (3.5-5.1) mmol/L Chloride (98-107) mmol/L BUN (7-17) mg/dL Creatinine (0.52-1.04) mg/dL Glucose (74-99) mg/dL POC Glucose (mg/dL) 172 H (75-99) mg/dL Plasma Lactic Acid Harinder (0.7-2.0) mmol/L Calcium (8.4-10.2) mg/dL Total Bilirubin (0.2-1.3) mg/dL AST (14-36) U/L ALT (9-52) U/L Alkaline Phosphatase (38-126) U/L Ammonia (<30) umol/L Total Protein (6.3-8.2) g/dL Albumin (3.5-5.0) g/dL Urine Appearance Cloudy H (Clear) Urine Protein Trace H (Negative) Urine Glucose (UA) Trace H (Negative) Urine Bilirubin 1+ H (Negative) Calcium Oxalate Crystal Rare H (None) /hpf Urine Bacteria Rare H (None) /hpf Hyaline Casts 122 H (0-2) /lpf Urine Mucus Rare H (None) /hpf 09/11/17 09/12/17 09/12/17 Range/Units 21:50 05:20 05:20 WBC 0.9 L* (3.8-10.6) k/uL RDW 17.9 H (11.5-15.5) % Plt Count 52 L (150-450) k/uL PT (9.0-12.0) sec INR (<1.2) APTT (22.0-30.0) sec Sodium 130 L (137-145) mmol/L Potassium 5.2 H (3.5-5.1) mmol/L Chloride (98-107) mmol/L BUN 59 H (7-17) mg/dL Creatinine 1.80 H (0.52-1.04) mg/dL Glucose 132 H (74-99) mg/dL POC Glucose (mg/dL) (75-99) mg/dL Plasma Lactic Acid Harinder 4.2 H* (0.7-2.0) mmol/L Calcium 7.6 L (8.4-10.2) mg/dL Total Bilirubin (0.2-1.3) mg/dL AST (14-36) U/L ALT (9-52) U/L Alkaline Phosphatase (38-126) U/L Ammonia (<30) umol/L Total Protein (6.3-8.2) g/dL Albumin (3.5-5.0) g/dL Urine Appearance (Clear) Urine Protein (Negative) Urine Glucose (UA) (Negative) Urine Bilirubin (Negative) Calcium Oxalate Crystal (None) /hpf Urine Bacteria (None) /hpf Hyaline Casts (0-2) /lpf Urine Mucus (None) /hpf Microbiology - Last 24 Hours (Table) 09/11/17 17:40 Urine Culture - Preliminary Urine,Catheterized Assessment and Plan Plan: This is a 52-year-old female who presented to the hospital with neutropenic sepsis and shock requiring IV fluid resuscitation, acute kidney injury with ischemic ATN, stage IV breast cancer with metastatic disease to the liver, bones and lung, significant wounds to the bilateral groins and feet. Patient is currently on Levaquin and Zosyn. Daptomycin will be added for gram- positive coverage and micafungin for fungal therapy. Blood culture and urine culture status received and in progress. Continue supportive care. Prognosis is guarded. Further recommendations as patient progresses. The above dictated assessment and findings were discussed with Dr. Palomares. The impression and plan of care have been directed as dictated. Moon Strauss nurse practitioner acting as scribe for Dr. Palomares.
[2017-09-12] MEDS ORDERED: NOREPINEPHRIN 16 MG-0.9%NS PMX 16 MG/250 ML ML IV SCH (14:45)
--- NOTE | 2017-09-12 16:30 | P.CON ---
Consult Note - . Consult date: 09/12/17 Assessment/Plan:: This is a 52-year-old female gives history that she has had breast cancer status post radical left mastectomy followed by right mastectomy initially treated for years ago when she was first diagnosed and was cancer free until this summer. She now has metastatic disease to liver, bone, lungs. She had a recent hospitalization on August 20 through August 25, treated for malignant right-sided pleural effusion and was status post 2 thoracentesis. Patient was also found to have ascites at that time which is continued but no paracentesis has been done. She states that on Sunday she was just restarted on chemotherapy at [facility] in [place]. She has had nausea and vomiting and watery diarrhea 2-3 times. She states she's has a cough with phlegm production along with fever and chills. She came in to [facility] on September 11 with weakness and dehydration and was found to have right pleural effusion with right lower lobe consolidation, mild heart failure probable small left pleural effusion with no significant change from her last films. She was found to be afebrile, heart rate was running in the 120s to 130s and she was hypotensive. White count initially 0.5 and platelet count 79 and now at 52. Electrolyte abnormalities with hyponatremia and hyperkalemia with acute kidney injury with BUN of 59 creatinine 1.8. Lactic acid was actually elevated at 4.3. Liver function tests were all elevated. His urinalysis was cloudy dark brown with nitrate and leukoesterase negative. Blood cultures status received and urine cultures in progress. She was started on Levaquin and Zosyn and admitted into the intensive care unit. She has had a total of 5 L of IV fluids but has not been started on vasopressors. Patient has significant wounds to bilateral groin, right upper thigh, bilateral feet that she has had for about one month. She states a significantly worsened after receiving her chemotherapy on Sunday. Versed also states that she is not able to swallow and speech therapy has been consult it. She has consult in place for Dr. Tracy, oncology and nephrology. Please see the consult note is dictated by nurse practitioner Mrs. Moon Strauss He has noted this is a 52-year-old woman who has evidence of metastatic breast carcinoma who presents with febrile neutropenia. He has noted her platelets are starting to decline further and consequently Zosyn is altered to meropenem to have less impact on her platelets and still give coverage for the febrile neutropenic event. Is noted she has significant difficulties with her skin. Saline will be applied to the feet and wrap in place. Interdry be applied to the abdominal folds and changed as needed. Antifungal therapy is adequate with micafungin given a significant fungal appearance to the lesions in her skin folds. Moisturizer to her lips. Salt and soda can be used on a swab to help her mouth feel dry cleaner presser and less uncomfortable, especially since she is unable to swallow with this time. Case is discussed with the transport truck driver and it is noted that her prognosis is very poor. I agree with evaluation, assessment and plan as dictated by nurse practitioner Mrs. Moon Strauss.
--- NOTE | 2017-09-12 16:33 | P.PN ---
Progress Note - Text Progress Note Date: 09/12/17 DATE OF SERVICE: 09/12/2017 PRESENTING COMPLAINT: Weak and tired HISTORY OF PRESENT ILLNESS: 52-year-old female with metastatic breast cancer metastases to the liver bone lung stage IV. Received her first chemotherapy treatment about a week ago. Has a history of a malignant pleural effusion that was tapped once. Patient's appetite has gone down. Developed ulcers in her mouth and is significantly weak and has difficulty getting around. She has a significant amount of edema. Admitted for the same. INTERVAL HISTORY: 09/12/2017: Patient seen in the ICU today, awake alert and able to answer some questions. Continues to have a sore throat. Blood pressures low receiving IV fluids continuously per nephrology as well as small amount of Levophed for blood pressure support. REVIEW OF SYSTEMS: Done for constitutional ,cardiovascular, GI, pulmonary with relevant findings as above. CURRENT MEDICATIONS IV Tylenol, [place], cool solution, daptomycin 500 mg IV piggyback every 24 hours. Filgrastim 40 g subcu daily, levofloxacin 750 mg IV piggyback, Levophed titrated to effect. Zosyn 3.375 g IV piggyback. IV fluids normal saline 0.9% at 125 mL an hour. PHYSICAL EXAM VITAL SIGNS: Temperature 99.7, pulse 131, respirations 25, blood pressure 87/59, oxygen saturation 96% on 2 L. GENERAL APPEARANCE: Lying in bed, tired and anxious appearing. EYES: Pupils equal. Conjunctiva normal. NECK: JVD not raised. Mass not palpable. RESPIRATORY: Respiratory effort increased. Lungs diminished to auscultation. CARDIOVASCULAR: First and second sounds normal. No edema. ABDOMEN: Soft. Liver and spleen not palpable. No tenderness. No mass palpable. PSYCHIATRY: Alert and oriented x3. Mood and affect tired appearing. INTEGUMENT: Severely excoriated skin underneath patient's abdominal pannus. INVESTIGATIONS: White blood cell count 0.9, sodium 1:30, potassium 5.2, BUN 59, creatinine 1.80 , lactic acid 4.4. Chest x-ray: Expiratory rotated exam, follow-up suggested. ASSESSMENT: -Acute renal failure with creatinine going up from 0.9-1.86. This could also be from hypotension it is noted that the patient is on a leave home and on Lasix. -Morbid obesity BMI 41.6. -Metastatic breast cancer, stage IV with metastatic liver bone, malignant pleural effusion and anasarca. -Essential hypertension, history of. -Hypotension likely due to volume loss and volume contraction. -Hyperlipidemia. -Obstructive sleep apnea uses CPAP machine. -Anxiety not otherwise specified. -Right pleural effusion, likely malignant. PLAN: Admitted to the ICU, Normal saline to continue at 125 mL an hour. Levophed for blood pressure support. Continue IV antibiotics in the form of meropenem and daptomycin, local wound care to abdominal pannus with Silvadene cream. SPRAY STAINER statement: Patient was seen and examined by nurse practitioner Sana Carlton and all elements of the case discussed with attending Dr. Vu
--- NOTE | 2017-09-12 16:43 | P.CNPUL ---
History of Present Illness Consult date: 09/12/17 Requesting physician: Dewey Vu Reason for consult: other Chief complaint: Dehydration, weakness, nausea, decrease in appetite. History of present illness: Nery is a 52-year-old female with a known history of metastatic breast cancer and bilateral mastectomy presented to the emergency department on 09/11/2017 at 15. With complaint of profound weakness, dehydration, significant decrease in appetite, and wounds in the abdominal folds as well as bruising and discoloration in her right lateral lower legs. Patient was recently hospitalized for a right-sided pleural effusion that was drained by Dr. Tracy in the fluid was positive for breast cancer. Patient is also known to have nodules throughout the lung bedoya bilaterally in the largest nodule is measuring 7 mm in size and are suspected for metastatic disease. She had recent CT of her abdomen and pelvis on 08/21/2017 that showed the liver with evidence of metastatic disease, a 2.1 cm Lytic lesion in the left iliac bone destroying the posterior cortex, diffuse anasarca with moderate amount of abdominal pelvic ascites and cholelithiasis. The patient is being followed by Dr. Vega her oncologist at the cancer [place]. She received 1 round of IV Taxol last Sunday, and presented to the hospital today with evidence of profound neutropenia, acute kidney injury, sepsis most likely from her abdominal wounds, profound weakness, dehydration, hypotension and lactic acidosis. The wounds on and under the abdominal folds are open, weeping serous fluid. She also developed some bruising and discoloration on her bilateral feet , but no open wounds on her lower extremities. She is quite weak and debilitated. She relies on the support of her multiple friends, who are present at the bedside and are quite concerned about her current condition. She is mildly short of breath at rest, but becomes very short of breath with activity. She is hypotensive, with BP in the 80s over 50s. She was given aggressive fluid resuscitation with 5 L of IV crystalloids, and remains hypotensive, oliguric despite those measures. Plasma lactic acid is elevated at 4.2, and remains elevated at 4.4 despite the fluid resuscitation. Her lung sounds are quite diminished over the right lower lobe. She is on 2 L per nasal cannula, currently satting at 98%. Her T-max is 99.8F. Chest x-ray from 09/11 has been reviewed by Dr. Tracy and shows right pleural effusion and right lower lobe consolidation. She has been started on empiric antibiotics in the form of Zosyn, Levaquin, and daptomycin. Blood cultures, sputum, urine culture and wound cultures have been ordered. Infectious disease consult has been placed. Patient has been initiated on filgrastim injections per hematology. Review of Systems All systems: negative Constitutional: Reports poor appetite, Reports weakness, Denies chills, Denies fever Eyes: denies blurred vision, denies pain Ears, nose, mouth and throat: Reports odynophagia, Denies headache, Denies sore throat Cardiovascular: Denies chest pain, Denies shortness of breath Respiratory: Denies cough Gastrointestinal: Denies abdominal pain, Denies diarrhea, Denies nausea, Denies vomiting Genitourinary: Denies dysuria, Denies hematuria Musculoskeletal: Reports gait dysfunction, Denies myalgias Integumentary: Denies pruritus, Denies rash Neurological: Reports gait dysfunction, Reports weakness, Denies numbness Psychiatric: Denies anxiety, Denies depression Endocrine: Denies fatigue, Denies weight change Past Medical History Past Medical History: Cancer, Diabetes Mellitus, Hyperlipidemia, Hypertension, Skin Disorder, Sleep Apnea/CPAP/BIPAP, Supraventricular Tachycardia (SVT) Additional Past Medical History / Comment(s): Stage IV breast cancer with previous bilateral mastectomy and the patient has liver, bone, and lung involvement., obstructive sleep apnea, hypertension, hyperlipidemia, anxiety/ panic, SVT, diabetes mellitus, malignant pleural effusion, ascites History of Any Multi-Drug Resistant Organisms: None Reported Past Surgical History: Breast Surgery Additional Past Surgical History / Comment(s): Bilateral MASTECTOMY 2012, SINUS SURGERY, wisdom teeth out 2010, x2 thoracentesis, nasal surgery ~25yrs ago. 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 Smoking Status: Never smoker Past Alcohol Use History: None Reported Past Drug Use History: None Reported - Past Family History Mother Family Medical History: Cancer Additional Family Medical History / Comment(s): breast CA Father Family Medical History: CVA/TIA Medications and Allergies Home Medications Medication Instructions Recorded Confirmed Type Venlafaxine HCl ER [Effexor XR] 150 mg PO DAILY 02/27/14 09/11/17 History Tamoxifen Citrate 20 mg PO DAILY 07/26/16 09/11/17 History Famotidine [Pepcid] 20 mg PO BID #60 tab 07/13/17 09/11/17 Rx Metoprolol Tartrate [Lopressor] 50 mg PO BID #60 tab 07/13/17 09/11/17 Rx Simvastatin [Zocor] 10 mg PO HS 07/30/17 09/11/17 History Loratadine [Claritin] 5 mg PO Q12HR PRN 08/20/17 09/11/17 History Furosemide [Lasix] 20 mg PO MOWEFR 09/11/17 09/11/17 History Magic Mouthwash 1:1 30 ml PO DIRECTED 09/11/17 09/11/17 History Naproxen Sodium [Aleve] 220 - 440 mg PO BID PRN 09/11/17 09/11/17 History Allergies Allergy/AdvReac Type Severity Reaction Status Date / Time Sulfa (Sulfonamide Allergy Itching Verified 09/11/17 15:52 Antibiotics) sulfamethoxazole Allergy Itching Verified 09/11/17 15:52 [From Bactrim] trimethoprim [From Bactrim] Allergy Itching Verified 09/11/17 15:52 Physical Exam Vitals: Vital Signs Temp Pulse Resp BP Pulse Ox 09/12/17 15:00 120 H 15 80/58 96 09/12/17 14:00 112 H 20 83/60 96 09/12/17 13:00 123 H 21 87/51 93 L 09/12/17 12:00 99.2 F 119 H 27 H 86/47 94 L 09/12/17 11:00 119 H 26 H 97/59 95 09/12/17 10:00 122 H 19 92/56 96 09/12/17 09:00 99.7 F H 131 H 25 H 87/59 96 09/12/17 08:00 130 H 25 H 98/54 95 09/12/17 07:00 133 H 18 112/54 96 09/12/17 06:00 130 H 14 110/53 98 09/12/17 05:00 126 H 14 110/53 97 09/12/17 04:00 98.9 F 125 H 14 85/65 97 09/12/17 03:00 120 H 14 82/60 96 09/12/17 02:00 117 H 16 78/58 96 09/12/17 01:00 124 H 16 80/58 94 L 09/12/17 00:00 98.3 F 113 H 14 82/60 97 09/11/17 23:00 119 H 16 84/55 96 09/11/17 22:00 115 H 16 81/53 98 09/11/17 21:00 98.3 F 107 H 16 94/56 97 09/11/17 20:36 109 H 09/11/17 20:13 102 H 24 71/50 97 09/11/17 20:00 98 F 106 H 22 91/56 98 09/11/17 19:38 97.3 F L 104 H 18 84/50 100 09/11/17 18:30 88 22 100/61 99 09/11/17 18:00 101 H 22 99/56 97 09/11/17 17:30 103 H 22 96/50 97 09/11/17 17:00 100 22 87/53 98 09/11/17 16:30 97 22 93/50 98 Intake and Output 09/12/17 09/12/17 09/12/17 06:59 14:59 22:59 Intake Total 1000 1150 125 Output Total 240 90 20 Balance 760 1060 105 Intake: IV 1000 1150 125 Levofloxacin 750Mg-D5w 150 Pmx 750 mg In Dextrose/ Water 1 150ml.bag @ 100 mls/hr IVPB ONCE STA Rx#: [id number] Magnesium Sulfate-D5w Pmx 200 1 gm In Dextrose/Water 1 100ml.bag @ 100 mls/hr IVPB Q1H MATT Rx#: [id number] Piperacillin-Tazobactam 3 50 50 .375 gm In Dextrose/Water 1 50ml.bag @ 12.5 mls/hr IVPB ONCE STA Rx#: [id number] Sodium Chloride 0.9% 1, 800 900 125 000 ml @ 100 mls/hr IV . Q10H MATT Rx#:[id number] Output: Urine 240 90 20 Other: Voiding Method Indwelling Catheter Indwelling Catheter Weight 118 kg 118 kg Patient Weight 09/13/17 06:59 Weight 118 kg - Constitutional 52-year-old female patient, mildly short of breath. Awake, alert General appearance: obese - EENT There is evidence of oral ulcerations on the ventral surface of the tongue Eyes: EOMI, PERRLA ENT: NA/AT, thrush Ears: bilateral: normal - Neck Neck: no lymphadenopathy Carotids: bilateral: upstroke normal Thyroid: bilateral: normal size - Respiratory Respiratory: right: diminished, dullness - Cardiovascular Rhythm: regular Heart sounds: normal: S1, S2 ankle Peripheral Edema: bilateral: None - Gastrointestinal Large distended abdomen, soft, nontender. Open excoriated wounds noted under the abdominal folds, in bilateral groins and upper thighs General gastrointestinal: no organomegaly, soft, no tenderness - Genitourinary And on catheter present with scant amount of concentrated urine - Integumentary Large areas of open excoriated draining wounds under abdominal folds, and bilateral groins and upper thighs. Bruising and discoloration noted in bilateral feet, but no open wounds in bilateral lower extremities. Integumentary: cellulitis, rash, ulcer - Neurologic Neurologic: CNII-XII intact - Musculoskeletal Musculoskeletal: generalized weakness, strength equal bilaterally - Psychiatric Psychiatric: A&O x's 3, appropriate affect, intact judgment & insight Results - Laboratory Findings CBC and BMP: 09/12/17 05:20 09/12/17 05:20 PT/INR, D-dimer PT 13.3 sec (9.0-12.0) H 09/11/17 17:00 INR 1.4 (<1.2) H 09/11/17 17:00 Abnormal lab findings: Abnormal Labs 09/11/17 09/11/17 09/11/17 17:00 17:00 17:00 WBC 0.5 L* RDW 16.2 H Plt Count 79 L PT INR APTT Sodium 127 L Potassium 5.4 H Chloride 95 L BUN 58 H Creatinine 1.86 H Glucose 205 H POC Glucose (mg/dL) Plasma Lactic Acid Harinder 4.3 H* Calcium 8.2 L Total Bilirubin 2.7 H AST 91 H ALT 84 H Alkaline Phosphatase 251 H Ammonia 31 H Total Protein 5.4 L Albumin 2.0 L Urine Appearance Urine Protein Urine Glucose (UA) Urine Bilirubin Calcium Oxalate Crystal Urine Bacteria Hyaline Casts Urine Mucus 09/11/17 09/11/17 09/11/17 17:00 17:40 20:33 WBC RDW Plt Count PT 13.3 H INR 1.4 H APTT 57.9 H Sodium Potassium Chloride BUN Creatinine Glucose POC Glucose (mg/dL) 172 H Plasma Lactic Acid Harinder Calcium Total Bilirubin AST ALT Alkaline Phosphatase Ammonia Total Protein Albumin Urine Appearance Cloudy H Urine Protein Trace H Urine Glucose (UA) Trace H Urine Bilirubin 1+ H Calcium Oxalate Crystal Rare H Urine Bacteria Rare H Hyaline Casts 122 H Urine Mucus Rare H 09/11/17 09/12/17 09/12/17 21:50 05:20 05:20 WBC 0.9 L* RDW 17.9 H Plt Count 52 L PT INR APTT Sodium 130 L Potassium 5.2 H Chloride BUN 59 H Creatinine 1.80 H Glucose 132 H POC Glucose (mg/dL) Plasma Lactic Acid Harinder 4.2 H* Calcium 7.6 L Total Bilirubin AST ALT Alkaline Phosphatase Ammonia Total Protein Albumin Urine Appearance Urine Protein Urine Glucose (UA) Urine Bilirubin Calcium Oxalate Crystal Urine Bacteria Hyaline Casts Urine Mucus 09/12/17 13:09 WBC RDW Plt Count PT INR APTT Sodium Potassium Chloride BUN Creatinine Glucose POC Glucose (mg/dL) Plasma Lactic Acid Harinder 4.4 H* Calcium Total Bilirubin AST ALT Alkaline Phosphatase Ammonia Total Protein Albumin Urine Appearance Urine Protein Urine Glucose (UA) Urine Bilirubin Calcium Oxalate Crystal Urine Bacteria Hyaline Casts Urine Mucus - Diagnostic Findings Chest x-ray: report reviewed Assessment and Plan Plan: Assessment: #1. Acute neutropenic sepsis, most likely source is open wounds in her abdominal folds, and bilateral groins and upper thighs. Extensive open excoriated wounds noted, there are weeping. #2. Lactic acidosis, lactic acid remains at 4.4 despite aggressive fluid resuscitation with 5 L of IV crystalloids. #3. Acute kidney injury, secondary to acute sepsis and organ hypoperfusion #4. Neutropenia, status post IV chemo with Taxol for stage IV breast cancer #5. Hypovolemic hyponatremia, due to patient's poor oral intake, nausea vomiting diarrhea, improved with IV hydration #6. Hypotension, due to neutropenic sepsis #7. Breast cancer with skeletal, liver, and lung involvement. #8. Recurrent right pleural malignant effusion #9. Chronic dyspnea secondary to the above, although the possibility of pneumonia cannot be excluded and the patient with profound neutropenia #10. Abdominal distention/ascites #11. Hypertension #12. Hyperlipidemia #13. Anxiety/panic #14. History of SVT #15. Diabetes mellitus #16. Extensive open wounds in bilateral abdominal groins #17. Obesity #18. Obstructive sleep apnea Plan: We have aggressively fluid resuscitated the patient with 5 L of crystalloids, she remains persistently hypotensive and oliguric, despite that. We will initiate vasopressor support in the form of the Levophed to maintain map of 65 mmHg. ID service has initiated antibiotics in the form of Zosyn, Levaquin, and daptomycin for the neutropenic sepsis. Wound care will also be addressed by the ID service. She has been started on Xarxio for the neutropenia. Continue with supportive treatments. Treatment and prognosis was discussed with the patient and multiple friends who were at the bedside and provide support for the patient on a regular basis. The short-term goals discussed and include surviving this acute neutropenic sepsis, further treatments for the metastatic breast cancer can be discussed once patient is has stabilized, but overall prognosis remains poor in view of patient's advanced metastatic breast cancer. Patient is status DO NOT RESUSCITATE per her own wishes. I performed a history & physical examination of the patient and discussed their management with my nurse practitioner, Ct Stanley. I reviewed the nurse practitioner's note and agree with the documented findings and plan of care. Lung sounds are diminished on the right. The findings and the impression was discussed with the patient. I attest to the documentation by the nurse practitioner. Time with Patient: Greater than 30
[2017-09-12] MEDS ORDERED: MICAFUNGIN 100 MG in SODIUM CHLORIDE 0.9% 100 ML IVPB SCH (17:00)
[2017-09-12] MEDS: SALT AND SODA MOUTHWASH 1,000 ML PO SCH ×2 (18:19→20:26)
[2017-09-12] MEDS: MEROPENEM 1 GM in SODIUM CHLORIDE 0.9% 100 ML IVPB SCH (18:19)
[2017-09-12] MEDS ORDERED: LEVOFLOXACIN 750MG-D5W PMX 750 MG in DEXTROSE/WATER 1 150ML.BAG IVPB SCH (20:00)
--- NOTE | 2017-09-12 21:14 | PN ---
PROGRESS NOTE DATE OF SERVICE: 09/12/2017. ATTENDING NOTE: The patient was seen and examined by me. I discussed with my nurse practitioner, Ms. Carlton. The patient is in the ICU, admitted with multiple issues. Propped up in bed, tired-appearing. Has a friend at the bedside. The patient has IV fluids running, also IV daptomycin and IV Levaquin, Zosyn. PHYSICAL EXAMINATION: Temperature 99.7, pulse 130, respirations 25, blood pressure 87/59. LUNGS: Decreased breath sounds. Anasarca present. White count 0.9, hemoglobin 13.6. Potassium 5.2, BUN 59, creatinine 1.80. ASSESSMENT: 1. Metastatic breast cancer stage IV with . 2. Acute renal failure, possibly prerenal. 3. Pancytopenia from chemotherapy. 4. Hypotension from hypovolemia state. 5. Hyperkalemia. 6. Hypoalbuminemia from moderate protein-calorie malnutrition. 7. Severe intertriginous fungal infection in skin folds. 8. Right pleural effusion, malignant. 9. Anxiety, not otherwise specified. 10.Obstructive sleep apnea, likely uses continuous positive airway pressure machine. 11.Hyperlipidemia. 12.Morbid obesity, body mass index of 41.6. 13.Hyponatremia, likely possibly hypoosmolar. PLAN: Continue antibiotics for neutropenic low-grade fever. The patient also started on filgrastim. Overall prognosis is guarded. Antibiotics include daptomycin and meropenem. Care was discussed with the patient. Prognosis guarded. MMODL / ELIZABETHN: [id number] /
[2017-09-13] MEDS: SALT AND SODA MOUTHWASH 1,000 ML PO SCH ×3 (00:20→12:32)
--- NOTE | 2017-09-13 01:42 | P.CONS ---
History of Present Illness - Reason for Consult Consult date: 09/12/17 Neutropenic sepsis. Metastatic breast cancer on chemotherapy - History of Present Illness The patient is a 52-year-old lady, who was initially diagnosed with breast cancer in 2012. At that time the patient was treated with bilateral mastectomy, as well as chemotherapy with Herceptin. Her tumor was hormone receptor positive as well as her-2 positive. She was then placed on tamoxifen. She had presented in 07/08 with complains of cough and progressive shortness of breath. She was seen by Dr. Tracy imaging studies showing pulmonary nodules. She then developed a right-sided pleural effusion and had thoracentesis on 07/30/17 with cytology positive for recurrent metastatic breast cancer, ER positive ME weakly positive and her2 amplified. The patient's care has been at [facility] in [place]. She followed up there, and was subsequently found to have widespread metastatic disease, including the lungs, liver, kidney and the skeletal system. She was started on chemotherapy plus double antibody therapy with Herceptin and Perjeta. He states that she is receiving a single agent chemotherapy but is not sure of the exact drug. First dose was administered 1 week ago. The patient came into the emergency room, complaining of progressive weakness and not feeling well over the past few days. Appetite had been markedly reduced. She was complaining of progressive soreness in her mouth and throat as well as some diarrhea, nausea and occasional vomiting. She did not have overt fevers. Evaluation revealed elevated heart rate, and new acute kidney injury. The CBC was only 500 with platelets of 79. The patient was quite short of breath and hypoxic, with evidence of lactic acidosis. She was therefore admitted to the ICU for further management. The patient has developed ascites, since her thoracentesis, and has had open wounds on her lower extremities. She also has multiple superficial ulcerated areas in the lower abdomen. Review of Systems Constitutional: Reports chronic pain, Reports fatigue, Reports poor appetite, Reports weakness Eyes: denies blurred vision, denies pain Ears: deny: decreased hearing, ear discharge, earache, tinnitus Ears, nose, mouth and throat: Denies headache, Denies sore throat Breasts: absent: as per HPI Breasts: Reports as per HPI Cardiovascular: Reports rapid heart beat, Reports shortness of breath Respiratory: Reports cough with sputum (Mild, clear expectoration), Reports dyspnea Gastrointestinal: Reports diarrhea, Reports dyspepsia, Reports loss of appetite , Reports nausea, Reports vomiting Genitourinary: Denies dysuria, Denies hematuria Musculoskeletal: Reports as per HPI (Bilateral lower extremity edema), Reports muscle weakness Integumentary: Reports as per HPI, Reports color changes, Reports foot/leg ulcers, Reports sores (Confluent, superficial, lower abdominal wall) Neurological: Reports weakness Psychiatric: Denies anxiety, Denies depression Endocrine: Reports fatigue Hematologic/Lymphatic: Reports as per HPI Past Medical History Past Medical History: Cancer, Diabetes Mellitus, Hyperlipidemia, Hypertension, Skin Disorder, Sleep Apnea/CPAP/BIPAP, Supraventricular Tachycardia (SVT) Additional Past Medical History / Comment(s): Stage IV breast cancer with previous bilateral mastectomy and the patient has liver, bone, and lung involvement., obstructive sleep apnea, hypertension, hyperlipidemia, anxiety/ panic, SVT, diabetes mellitus, malignant pleural effusion, ascites History of Any Multi-Drug Resistant Organisms: None Reported Past Surgical History: Breast Surgery Additional Past Surgical History / Comment(s): Bilateral MASTECTOMY 2012, SINUS SURGERY, wisdom teeth out 2010, x2 thoracentesis, nasal surgery ~25yrs ago. 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 Smoking Status: Never smoker Past Alcohol Use History: None Reported Past Drug Use History: None Reported - Past Family History Mother Family Medical History: Cancer Additional Family Medical History / Comment(s): breast CA Father Family Medical History: CVA/TIA Medications and Allergies Home Medications Medication Instructions Recorded Confirmed Type Venlafaxine HCl ER [Effexor XR] 150 mg PO DAILY 02/27/14 09/11/17 History Tamoxifen Citrate 20 mg PO DAILY 07/26/16 09/11/17 History Famotidine [Pepcid] 20 mg PO BID #60 tab 07/13/17 09/11/17 Rx Metoprolol Tartrate [Lopressor] 50 mg PO BID #60 tab 07/13/17 09/11/17 Rx Simvastatin [Zocor] 10 mg PO HS 07/30/17 09/11/17 History Loratadine [Claritin] 5 mg PO Q12HR PRN 08/20/17 09/11/17 History Furosemide [Lasix] 20 mg PO MOWEFR 09/11/17 09/11/17 History Magic Mouthwash 1:1 30 ml PO DIRECTED 09/11/17 09/11/17 History Naproxen Sodium [Aleve] 220 - 440 mg PO BID PRN 09/11/17 09/11/17 History Allergies Allergy/AdvReac Type Severity Reaction Status Date / Time Sulfa (Sulfonamide Allergy Itching Verified 09/11/17 15:52 Antibiotics) sulfamethoxazole Allergy Itching Verified 09/11/17 15:52 [From Bactrim] trimethoprim [From Bactrim] Allergy Itching Verified 09/11/17 15:52 Physical Exam Vitals: Vital Signs Temp Pulse Resp BP Pulse Ox 09/12/17 08:00 130 H 25 H 98/54 95 09/12/17 07:00 133 H 18 112/54 96 09/12/17 06:00 130 H 14 110/53 98 09/12/17 05:00 126 H 14 110/53 97 09/12/17 04:00 98.9 F 125 H 14 85/65 97 09/12/17 03:00 120 H 14 82/60 96 09/12/17 02:00 117 H 16 78/58 96 09/12/17 01:00 124 H 16 80/58 94 L 09/12/17 00:00 98.3 F 113 H 14 82/60 97 09/11/17 23:00 119 H 16 84/55 96 09/11/17 22:00 115 H 16 81/53 98 09/11/17 21:00 98.3 F 107 H 16 94/56 97 09/11/17 20:36 109 H 09/11/17 20:13 102 H 24 71/50 97 09/11/17 20:00 98 F 106 H 22 91/56 98 09/11/17 19:38 97.3 F L 104 H 18 84/50 100 09/11/17 18:30 88 22 100/61 99 09/11/17 18:00 101 H 22 99/56 97 09/11/17 17:30 103 H 22 96/50 97 09/11/17 17:00 100 22 87/53 98 09/11/17 16:30 97 22 93/50 98 09/11/17 16:00 100 22 87/53 98 09/11/17 15:48 98.8 F 102 H 24 81/51 97 Intake and Output 09/11/17 09/12/17 09/12/17 22:59 06:59 14:59 Intake Total 1000 100 Output Total 240 30 Balance 760 70 Intake: IV 1000 100 Levofloxacin 750Mg-D5w 150 Pmx 750 mg In Dextrose/ Water 1 150ml.bag @ 100 mls/hr IVPB ONCE [facility] Rx#: [id number] Piperacillin-Tazobactam 3 50 .375 gm In Dextrose/Water 1 50ml.bag @ 12.5 mls/hr IVPB ONCE STA Rx#: [id number] Sodium Chloride 0.9% 1, 800 100 000 ml @ 100 mls/hr IV . Q10H [facility] Rx#:[id number] Output: Urine 240 30 Other: Voiding Method Bedside Commode Indwelling Catheter Weight 113.398 kg 118 kg 118 kg Patient Weight 09/13/17 06:59 Weight 118 kg - Constitutional General appearance: mild distress - EENT Widespread mucositis, with superficial ulcerations bilateral lateral buccal mucosa, left greater than right Eyes: EOMI, PERRLA ENT: pharyngeal erythema - Neck Neck: no lymphadenopathy Thyroid: bilateral: normal size - Respiratory Respiratory: bilateral: diminished - Cardiovascular Rhythm: regular Heart sounds: normal: S1, S2 - Gastrointestinal General gastrointestinal: decreased bowel sounds, soft - Integumentary Dressing on lower abdominal pannus, as well as bilateral lower extremities . Reviewed showing fairly extensive erythema, with superficial ulcerations - Neurologic Neurologic: CNII-XII intact - Musculoskeletal Musculoskeletal: generalized weakness, strength equal bilaterally - Psychiatric Psychiatric: A&O x's 3, appropriate affect Results CBC & Chem 7: 09/12/17 05:20 09/12/17 05:20 Labs: Abnormal Lab Results - Last 24 Hours (Table) 09/11/17 09/11/17 09/11/17 Range/Units 17:00 17:00 17:00 WBC 0.5 L* (3.8-10.6) k/uL RDW 16.2 H (11.5-15.5) % Plt Count 79 L (150-450) k/uL PT (9.0-12.0) sec INR (<1.2) APTT (22.0-30.0) sec Sodium 127 L (137-145) mmol/L Potassium 5.4 H (3.5-5.1) mmol/L Chloride 95 L (98-107) mmol/L BUN 58 H (7-17) mg/dL Creatinine 1.86 H (0.52-1.04) mg/dL Glucose 205 H (74-99) mg/dL POC Glucose (mg/dL) (75-99) mg/dL Plasma Lactic Acid Harinder 4.3 H* (0.7-2.0) mmol/L Calcium 8.2 L (8.4-10.2) mg/dL Total Bilirubin 2.7 H (0.2-1.3) mg/dL AST 91 H (14-36) U/L ALT 84 H (9-52) U/L Alkaline Phosphatase 251 H (38-126) U/L Ammonia 31 H (<30) umol/L Total Protein 5.4 L (6.3-8.2) g/dL Albumin 2.0 L (3.5-5.0) g/dL Urine Appearance (Clear) Urine Protein (Negative) Urine Glucose (UA) (Negative) Urine Bilirubin (Negative) Calcium Oxalate Crystal (None) /hpf Urine Bacteria (None) /hpf Hyaline Casts (0-2) /lpf Urine Mucus (None) /hpf 09/11/17 09/11/17 09/11/17 Range/Units 17:00 17:40 20:33 WBC (3.8-10.6) k/uL RDW (11.5-15.5) % Plt Count (150-450) k/uL PT 13.3 H (9.0-12.0) sec INR 1.4 H (<1.2) APTT 57.9 H (22.0-30.0) sec Sodium (137-145) mmol/L Potassium (3.5-5.1) mmol/L Chloride (98-107) mmol/L BUN (7-17) mg/dL Creatinine (0.52-1.04) mg/dL Glucose (74-99) mg/dL POC Glucose (mg/dL) 172 H (75-99) mg/dL Plasma Lactic Acid Harinder (0.7-2.0) mmol/L Calcium (8.4-10.2) mg/dL Total Bilirubin (0.2-1.3) mg/dL AST (14-36) U/L ALT (9-52) U/L Alkaline Phosphatase (38-126) U/L Ammonia (<30) umol/L Total Protein (6.3-8.2) g/dL Albumin (3.5-5.0) g/dL Urine Appearance Cloudy H (Clear) Urine Protein Trace H (Negative) Urine Glucose (UA) Trace H (Negative) Urine Bilirubin 1+ H (Negative) Calcium Oxalate Crystal Rare H (None) /hpf Urine Bacteria Rare H (None) /hpf Hyaline Casts 122 H (0-2) /lpf Urine Mucus Rare H (None) /hpf 09/11/17 09/12/17 09/12/17 Range/Units 21:50 05:20 05:20 WBC 0.9 L* (3.8-10.6) k/uL RDW 17.9 H (11.5-15.5) % Plt Count 52 L (150-450) k/uL PT (9.0-12.0) sec INR (<1.2) APTT (22.0-30.0) sec Sodium 130 L (137-145) mmol/L Potassium 5.2 H (3.5-5.1) mmol/L Chloride (98-107) mmol/L BUN 59 H (7-17) mg/dL Creatinine 1.80 H (0.52-1.04) mg/dL Glucose 132 H (74-99) mg/dL POC Glucose (mg/dL) (75-99) mg/dL Plasma Lactic Acid Harinder 4.2 H* (0.7-2.0) mmol/L Calcium 7.6 L (8.4-10.2) mg/dL Total Bilirubin (0.2-1.3) mg/dL AST (14-36) U/L ALT (9-52) U/L Alkaline Phosphatase (38-126) U/L Ammonia (<30) umol/L Total Protein (6.3-8.2) g/dL Albumin (3.5-5.0) g/dL Urine Appearance (Clear) Urine Protein (Negative) Urine Glucose (UA) (Negative) Urine Bilirubin (Negative) Calcium Oxalate Crystal (None) /hpf Urine Bacteria (None) /hpf Hyaline Casts (0-2) /lpf Urine Mucus (None) /hpf Microbiology - Last 24 Hours (Table) 09/11/17 17:40 Urine Culture - Preliminary Urine,Catheterized Chest x-ray: report reviewed Assessment and Plan (1) Neutropenic sepsis Narrative/Plan: the patient is presenting with sepsis syndrome associated with neutropenia. Neutropenia is due to antineoplastic chemotherapy. Probable source of infection is likely the skin ulcers on the abdominal wall and/or lower extremities. Other sources are not ruled out. The patient has been placed on Zosyn and Levaquin. Case was discussed with the ID service. Given the presence of the skin lesions, as well as port, vancomycin was recommended. the patient did not receive Neulasta or Neupogen postchemotherapy. She will be started on filgrastim. WBC is actually showing signs of recovery with increase to 0.9 today, compared to 500 on admission. continued to follow counts , and discontinue filgrastim on recovery . cultures have been ordered, and are pending so far. Wound cultures have also been ordered Current Visit: Yes Status: Acute Code(s): A41.9 - SEPSIS, UNSPECIFIED ORGANISM; D70.9 - NEUTROPENIA, UNSPECIFIED SNOMED Code(s): 069380501 (2) Pancytopenia due to antineoplastic chemotherapy Narrative/Plan: as noted, WBC is starting to recover. Filgrastim has been started. Hemoglobin and platelets are in a safe range. Continue to monitor and transfuse if needed. Current Visit: Yes Status: Acute Code(s): D61.810 - ANTINEOPLASTIC CHEMOTHERAPY INDUCED PANCYTOPENIA; T45.1X5A - ADVERSE EFFECT OF ANTINEOPLASTIC AND IMMUNOSUP DRUGS, INIT SNOMED Code(s): 506555207988252 (3) Metastatic breast cancer Narrative/Plan: diagnostic and therapeutic circumstances are as described above. The patient will resume follow-up and treatment with Dr. Tillman at the [facility] once acute condition has resolved. Current Visit: Yes Status: Acute Code(s): C50.919 - MALIGNANT NEOPLASM OF UNSP SITE OF UNSPECIFIED FEMALE BREAST SNOMED Code(s): 840164464
[2017-09-13 04:55] LABS: Anisocytosis Slight; Aty Lym Flag Marked; CH 30.3; HCT 45.2 % (34.0-46.0); HDW 2.45; HGB 14.2 gm/dL (11.4-16.0); Immature Gran Flag Marked; Large Platelets Flag Slight; MCHC 31.5 g/dL (31.0-37.0); MCV 95.4 fL (80.0-100.0); Mean Platelet Volume 10.7; RBC 4.73 m/uL (3.80-5.40); RDW 16.7 % (11.5-15.5); WBC (Perox) 3.48
[2017-09-13 05:04] LABS: Calcium 7.6 mg/dL (8.4-10.2)
[2017-09-13 05:11] LABS: Magnesium 2.3 mg/dL (1.6-2.3); Phosphorus 4.6 mg/dL (2.5-4.5); Potassium 5.7 mmol/L (3.5-5.1)
[2017-09-13 05:20] LABS: Add Differential Manual Differential
[2017-09-13] MEDS: SODIUM CHLORIDE 0.9% 1,000 ML IV SCH ×2 (05:22→12:33)
[2017-09-13] MEDS: MEROPENEM 1 GM in SODIUM CHLORIDE 0.9% 100 ML IVPB SCH (05:22)
[2017-09-13 06:12] LABS: Manual Review Performed; Nucleated Red Blood Cells 2 /100 WBC (0-0); Target Cells Present; Total Cells Counted 200; WBC 3.3 k/uL (3.8-10.6)
[2017-09-13 06:14] LABS: Howell-Jolly Bodies Present
[2017-09-13 06:17] LABS: Reactive Lymphocytes Present
--- NOTE | 2017-09-13 07:16 | XR ---
EXAMINATION TYPE: XR chest 1V DATE OF EXAM: 09/13/2017 HISTORY: Shortness of breath. COMPARISON: 09/12/2017 TECHNIQUE: Single view of the chest is submitted. FINDINGS: Increasing opacity throughout the right lung may reflect developing infiltrate, effusion and/or atele ctasis. Mild scattered atelectasis left lung base. Right-sided Mediport catheter unchanged in position. Left axillary clips identified. The heart is stable. Hilar and mediastinal structures are within normal limits. Degenerative changes are seen of the dorsal spine. IMPRESSION: 1. Increasing opacity throughout the right lung may reflect developing infiltrate, effusion and/or a telectasis. Mild scattered atelectasis left lung base.
[2017-09-13 09:40] VITALS: TEMP 99
--- NOTE | 2017-09-13 09:56 | P.PN ---
Subjective Progress Note Date: 09/13/17 Principal diagnosis: Septic shock Patient seen and examined for the follow-up of acute kidney injury in the ICU. Baseline creatinine about 0.8-1.0 and she podium. Admitted to the hospital with hypotension and lactic acidosis peak creatinine today is 2.3 MG per DL. Still requiring 12 mics of levo and tachycardic around 120s to 130s on the monitor. She has metastatic breast cancer had his last chemotherapy last Sunday and since then not feeling well. Objective - Vital Signs Vital signs: Vital Signs Temp 99 F 09/13/17 09:00 Pulse 121 H 09/13/17 09:00 Resp 30 H 09/13/17 09:00 BP 93/34 09/13/17 09:00 Pulse Ox 94 L 09/13/17 09:00 Intake & Output 09/12/17 09/13/17 09/13/17 18:59 06:59 18:59 Intake Total 2988.592 5746.504 250 Output Total 135 78 15 Balance 2119.602 3333.504 235 Weight 118 kg 121 kg Intake: IV 1850 1975 250 Magnesium Sulfate-D5w Pmx 200 1 gm In Dextrose/Water 1 100ml.bag @ 100 mls/hr IVPB Q1H [facility] Rx#: [id number] Meropenem 1 gm In Sodium 100 100 Chloride 0.9% 100 ml @ 100 mls/hr IVPB Q12H [facility] Rx#:[id number] Micafungin 100 mg In 100 Sodium Chloride 0.9% 100 ml @ 100 mls/hr IVPB Q24H [facility] Rx#:[id number] Piperacillin-Tazobactam 3 50 .375 gm In Dextrose/Water 1 50ml.bag @ 12.5 mls/hr IVPB ONCE STA Rx#: [id number] Sodium Chloride 0.9% 1, 1400 375 000 ml @ 100 mls/hr IV . Q10H [facility] Rx#:[id number] Sodium Chloride 0.9% 1, 1500 250 000 ml @ 125 mls/hr IV . Q8H [facility] Rx#:[id number] Intake, IV Titration 8.969 68.504 Amount Norepinephrin 16 mg-0.9% 8.969 68.504 Ns Pmx 16 mg In 250 ml @ Titrate IV .Q0M [facility] Rx#: [id number] Output: Urine 135 78 15 Other: Voiding Method Indwelling Catheter Indwelling Catheter - Exam Lying in bed mild short of breath Cardiovascular S1 and S2 were tachycardic Lungs basal crackles Abdomen distended bowel sounds present Edema lower extremities. - Labs CBC & Chem 7: 09/13/17 04:29 09/13/17 04:29 Labs: Abnormal Lab Results - Last 24 Hours (Table) 09/12/17 09/13/17 09/13/17 Range/Units 13:09 04:29 04:29 WBC 3.3 L (3.8-10.6) k/uL RDW 16.7 H (11.5-15.5) % Plt Count 70 L (150-450) k/uL Neutrophils # (Manual) 0.40 L (1.3-7.7) k/uL Nucleated RBCs 2 H (0-0) /100 WBC Sodium 130 L (137-145) mmol/L Potassium 5.7 H (3.5-5.1) mmol/L Carbon Dioxide 17 L (22-30) mmol/L BUN 71 H (7-17) mg/dL Creatinine 2.30 H (0.52-1.04) mg/dL Plasma Lactic Acid Harinder 4.4 H* (0.7-2.0) mmol/L Calcium 7.6 L (8.4-10.2) mg/dL Phosphorus 4.6 H (2.5-4.5) mg/dL Microbiology - Last 24 Hours (Table) 09/11/17 17:40 Urine Culture - Final Urine,Catheterized 09/11/17 21:50 Blood Culture - Preliminary Blood No Growth after 24 hours 09/11/17 17:00 Blood Culture - Preliminary Blood No Growth after 24 hours Assessment and Plan Assessment: Impression: #1 oliguric acute kidney injury secondary to ischemic ATN from hypotension. Also worsened by NSAIDs and diuretics. #2 hypervolemic hyponatremia. #3 septic shock on pressors. #4 lactic acidosis secondary to hypoperfusion. #5 metastatic breast cancer. #6 metabolic acidosis #7 generalized edema. #8 hyperkalemia. Recommendations: #1 as her renal function getting worse and oliguria persisting, anticipate her renal function to get worse in next couple of days if her pressor requirement continues to stay and she remains oliguric. #2 discussed with the ICU team, if clinical condition persist she might need dialysis. But with multiple comorbid conditions, she might not be a good candidate for dialysis. #3 patient's expressed the need that she will take dialysis if needed. So at this point we will watch her renal function closely, treat medically until final decision regarding her plan of care is made. ICU team aware of the plan of care.
[2017-09-13] MEDS: FILGRASTIM-SNDZ 480 MCG/0.8 ML SYRINGE SQ SCH (09:57)
[2017-09-13] MEDS: HYDROmorphone 0.5 MG/0.5 ML SYRINGE IVP PRN (10:38)
[2017-09-13 11:03] LABS: ABG Base Excess -7.9 mmol/L; ABG HCO3 16 mmol/L (21-25); ABG PCO2 25 mmHg (35-45); ABG PH 7.42 (7.35-7.45); ABG PO2 82 mmHg (83-108); ABG TCO2 17 mmol/L (19-24)
[2017-09-13] MEDS: DAPTOmycin IN 0.9% NACL 500 MG/10 ML SYRINGE IVP SCH (12:32)
[2017-09-13 13:03] VITALS: BP 107/64; PULSE 139; RESP 12
[2017-09-13] MEDS ORDERED: LORazepam 2 MG/ML INJ IV PRN (13:06)
[2017-09-13] MEDS ORDERED: ONDANSETRON 4 MG/2 ML VIAL IVP PRN (13:08)
[2017-09-13] MEDS ORDERED: BISACODYL 10 MG SUPP RECTAL PRN (13:08)
[2017-09-13] MEDS ORDERED: ACETAMINOPHEN SUPPOSITORY 650 MG SUPP RECTAL PRN (13:10)
[2017-09-13] MEDS ORDERED: SCOPOLAMINE 1.5MG/72HR PATCH TRANSDERM SCH (13:15)
[2017-09-13] MEDS ORDERED: MORPHINE SULFATE (100 MG/2 ML) 100 MG in SODIUM CHLORIDE 0.9% 100 ML IV SCH (14:00)
--- NOTE | 2017-09-13 14:17 | P.PN ---
Subjective Progress Note Date: 09/13/17 Nery is a 52-year-old female with a known history of metastatic breast cancer and bilateral mastectomy presented to the emergency department on 09/11/2017 at 15. With complaint of profound weakness, dehydration, significant decrease in appetite, and wounds in the abdominal folds as well as bruising and discoloration in her right lateral lower legs. Patient was recently hospitalized for a right-sided pleural effusion that was drained by Dr. Tracy in the fluid was positive for breast cancer. Patient is also known to have nodules throughout the lung bedoya bilaterally in the largest nodule is measuring 7 mm in size and are suspected for metastatic disease. She had recent CT of her abdomen and pelvis on 08/21/2017 that showed the liver with evidence of metastatic disease, a 2.1 cm Lytic lesion in the left iliac bone destroying the posterior cortex, diffuse anasarca with moderate amount of abdominal pelvic ascites and cholelithiasis. The patient is being followed by Dr. Vega her oncologist at the [facility] [place]. She received 1 round of IV Taxol last Sunday, and presented to the hospital today with evidence of profound neutropenia, acute kidney injury, sepsis most likely from her abdominal wounds, profound weakness, dehydration, hypotension and lactic acidosis. The wounds on and under the abdominal folds are open, weeping serous fluid. She also developed some bruising and discoloration on her bilateral feet , but no open wounds on her lower extremities. She is quite weak and debilitated. She relies on the support of her multiple friends, who are present at the bedside and are quite concerned about her current condition. She is mildly short of breath at rest, but becomes very short of breath with activity. She is hypotensive, with BP in the 80s over 50s. She was given aggressive fluid resuscitation with 5 L of IV crystalloids, and remains hypotensive, oliguric despite those measures. Plasma lactic acid is elevated at 4.2, and remains elevated at 4.4 despite the fluid resuscitation. Her lung sounds are quite diminished over the right lower lobe. She is on 2 L per nasal cannula, currently satting at 98%. Her T-max is 99.8F. Chest x-ray from 09/11 has been reviewed by Dr. Tracy and shows right pleural effusion and right lower lobe consolidation. She has been started on empiric antibiotics in the form of Zosyn, Levaquin, and daptomycin. Blood cultures, sputum, urine culture and wound cultures have been ordered. Infectious disease consult has been placed. Patient has been initiated on filgrastim injections per hematology. The patient is seen again today 09/13/2017 in follow-up in the intensive care unit. She is currently awake but somewhat disoriented to person place and time. She does deny any worsening shortness of breath currently. her chest x- ray reveals continued opacity in the right lung base. Maintaining good O2 saturations in the low 90s on 2 L/m by nasal cannula. She remains tachycardic. Her sodium is 1:30 potassium 5.7 BUN 71 creatinine 2.30. She has been seen and evaluated by nephrology who feels the patient would benefit from hemodialysis should she have a better prognosis. Unfortunately being stage IV and not tolerating chemotherapy hemodialysis were to be started she would not be able continue on chemotherapy. Arterial blood gases revealed a PaO2 of 82, pCO2 of 25 and a pH of 7.42 on 28% FiO2. White count is improved to 3.3, initiated on Zarxio. Hemoglobin is 14.2. Objective - Vital Signs Vital signs: Vital Signs Temp 99 F 09/13/17 09:00 Pulse 139 H 09/13/17 13:00 Resp 12 09/13/17 13:00 BP 107/64 09/13/17 13:00 Pulse Ox 92 L 09/13/17 13:00 Intake & Output 09/12/17 09/13/17 09/13/17 18:59 06:59 18:59 Intake Total 6744.938 2066.504 750 Output Total 135 78 15 Balance 3547.383 5325.504 735 Weight 118 kg 121 kg Intake: IV 1850 1975 750 Magnesium Sulfate-D5w Pmx 200 1 gm In Dextrose/Water 1 100ml.bag @ 100 mls/hr IVPB Q1H [facility] Rx#: [id number] Meropenem 1 gm In Sodium 100 100 Chloride 0.9% 100 ml @ 100 mls/hr IVPB Q12H [facility] Rx#:[id number] Micafungin 100 mg In 100 Sodium Chloride 0.9% 100 ml @ 100 mls/hr IVPB Q24H [facility] Rx#:[id number] Piperacillin-Tazobactam 3 50 .375 gm In Dextrose/Water 1 50ml.bag @ 12.5 mls/hr IVPB ONCE STA Rx#: [id number] Sodium Chloride 0.9% 1, 1400 375 000 ml @ 100 mls/hr IV . Q10H [facility] Rx#:[id number] Sodium Chloride 0.9% 1, 1500 750 000 ml @ 125 mls/hr IV . Q8H [facility] Rx#:[id number] Intake, IV Titration 8.969 68.504 Amount Norepinephrin 16 mg-0.9% 8.969 68.504 Ns Pmx 16 mg In 250 ml @ Titrate IV .Q0M [facility] Rx#: [id number] Output: Urine 135 78 15 Other: Voiding Method Indwelling Catheter Indwelling Catheter Indwelling Catheter - Exam 52-year-old female patient, mildly short of breath. Awake, alert General appearance: obese - EENT There is evidence of oral ulcerations on the ventral surface of the tongue Eyes: EOMI, PERRLA ENT: NA/AT, thrush Ears: bilateral: normal - Neck Neck: no lymphadenopathy Carotids: bilateral: upstroke normal Thyroid: bilateral: normal size - Respiratory Respiratory: right: diminished, dullness - Cardiovascular Rhythm: regular Heart sounds: normal: S1, S2 ankle Peripheral Edema: bilateral: None - Gastrointestinal Large distended abdomen, soft, nontender. Open excoriated wounds noted under the abdominal folds, in bilateral groins and upper thighs General gastrointestinal: no organomegaly, soft, no tenderness - Genitourinary And on catheter present with scant amount of concentrated urine - Integumentary Large areas of open excoriated draining wounds under abdominal folds, and bilateral groins and upper thighs. Bruising and discoloration noted in bilateral feet, but no open wounds in bilateral lower extremities. Integumentary: cellulitis, rash, ulcer - Neurologic Neurologic: CNII-XII intact - Musculoskeletal Musculoskeletal: generalized weakness, strength equal bilaterally - Psychiatric Psychiatric: Disoriented to place and time. - Labs CBC & Chem 7: 09/13/17 04:29 09/13/17 04:29 Labs: Abnormal Lab Results - Last 24 Hours (Table) 09/12/17 09/13/17 09/13/17 Range/Units 13:09 04:29 04:29 WBC 3.3 L (3.8-10.6) k/uL RDW 16.7 H (11.5-15.5) % Plt Count 70 L (150-450) k/uL Neutrophils # (Manual) 0.40 L (1.3-7.7) k/uL Nucleated RBCs 2 H (0-0) /100 WBC ABG pCO2 (35-45) mmHg ABG pO2 (83-108) mmHg ABG HCO3 (21-25) mmol/L ABG Total CO2 (19-24) mmol/L Sodium 130 L (137-145) mmol/L Potassium 5.7 H (3.5-5.1) mmol/L Carbon Dioxide 17 L (22-30) mmol/L BUN 71 H (7-17) mg/dL Creatinine 2.30 H (0.52-1.04) mg/dL Plasma Lactic Acid Harinder 4.4 H* (0.7-2.0) mmol/L Calcium 7.6 L (8.4-10.2) mg/dL Phosphorus 4.6 H (2.5-4.5) mg/dL 09/13/17 Range/Units 09:57 WBC (3.8-10.6) k/uL RDW (11.5-15.5) % Plt Count (150-450) k/uL Neutrophils # (Manual) (1.3-7.7) k/uL Nucleated RBCs (0-0) /100 WBC ABG pCO2 25 L (35-45) mmHg ABG pO2 82 L (83-108) mmHg ABG HCO3 16 L (21-25) mmol/L ABG Total CO2 17 L (19-24) mmol/L Sodium (137-145) mmol/L Potassium (3.5-5.1) mmol/L Carbon Dioxide (22-30) mmol/L BUN (7-17) mg/dL Creatinine (0.52-1.04) mg/dL Plasma Lactic Acid Harinder (0.7-2.0) mmol/L Calcium (8.4-10.2) mg/dL Phosphorus (2.5-4.5) mg/dL Microbiology - Last 24 Hours (Table) 09/11/17 17:40 Urine Culture - Final Urine,Catheterized 09/11/17 21:50 Blood Culture - Preliminary Blood No Growth after 24 hours 09/11/17 17:00 Blood Culture - Preliminary Blood No Growth after 24 hours Assessment and Plan Assessment: Assessment: #1. Acute neutropenic sepsis, most likely source is open wounds in her abdominal folds, and bilateral groins and upper thighs. Extensive open excoriated wounds noted, there are weeping. #2. Lactic acidosis, lactic acid remains at 4.4 despite aggressive fluid resuscitation with 5 L of IV crystalloids. #3. Acute kidney injury, secondary to acute sepsis and organ hypoperfusion #4. Neutropenia, status post IV chemo with Taxol for stage IV breast cancer #5. Hypovolemic hyponatremia, due to patient's poor oral intake, nausea vomiting diarrhea, improved with IV hydration #6. Hypotension, due to neutropenic sepsis #7. Breast cancer with skeletal, liver, and lung involvement. #8. Recurrent right pleural malignant effusion #9. Chronic dyspnea secondary to the above, although the possibility of pneumonia cannot be excluded and the patient with profound neutropenia #10. Abdominal distention/ascites #11. Hypertension #12. Hyperlipidemia #13. Anxiety/panic #14. History of SVT #15. Diabetes mellitus #16. Extensive open wounds in bilateral abdominal groins #17. Obesity #18. Obstructive sleep apnea Plan: The patient is a the patient was seen and evaluated by Dr. Tracy. He did have domingo discussions with both the patient and her family at the bedside. Her overall prognosis remains quite poor secondary to her advanced metastatic breast cancer. The patient had stated and documented earlier in her better health status prior to her hospitalization that she would not want dialysis or any type of resuscitation. She remains a DO NOT INTUBATE DO NOT RESUSCITATE CODE STATUS. The family and the patient are now leaning towards hospice/ comfort care. We will await further final decision. In the interim we'll continue with supportive care. I, the cosigning physician, have performed a history and physical examination on the patient. Lung sounds crackles in the right lung base. Maintaining good O2 saturations in the 90s on 2 L/m per nasal cannula. I have discussed the assessment and plan of care with my nurse practitioner, Fadia Stanford. I attest the above documented note as dictated by her.
--- NOTE | 2017-09-13 15:18 | DS ---
DISCHARGE SUMMARY FINAL DIAGNOSES: 1. Acute renal failure, probably prerenal. 2. Morbid obesity, body mass index of 41.6. 3. Metastatic breast cancer stage IV with metastatic disease to liver, bone, malignant pleural effusion and anasarca. 4. Pancytopenia from chemotherapy. 5. Hypotension from hypovolemic state. 6. Hyperkalemia. 7. Moderate protein-calorie malnutrition with hypoalbuminemia. 8. Severe intertriginous fungal infection in skin folds. 9. Right pleural effusion, malignant. 10.Anxiety, not otherwise specified. 11.Obstructive sleep apnea, likely using continuous positive airway pressure. 12.Hyperlipidemia. 13.Hyponatremia, likely hypoosmolar. 14.Acute metabolic encephalopathy with acute delirium due to underlying infection, multifactorial. CONSULTATION: Dr. Palomares for infectious disease, Dr. Hart from oncology, Dr. Boykin from nephrology. HOSPITAL COURSE: This patient has metastatic disease present, has presented with multiple problems, felt also may be an element of sepsis, hypotensive, was in the ICU. Continued to deteriorate. This morning, family came in because of rapid deterioration, decided to make the patient hospice. The patient is in quite a bit of pain and Dilaudid was increased. Now the patient may be requiring morphine, as she is groaning. I did talk to the patient's daughter at the bedside. They are comfortable proceeding with the hospice care. The patient will be admitted to inpatient GIP service for pain control. Prognosis poor. DISCHARGE PLANNING: More than 35 minutes. CHRISTINA / NICOLA: [id number] /
== END 2017-09-13 13:54 | disposition hospice, inpatient (51) | DRG 871 ==
LOC: EC 15:28 → 6ICU 18:24
PROVIDERS: ADMIT Hospitalist; ATTEND Hospitalist
DX: A41.9 Sepsis, unspecified organism (principal); R65.21 Severe sepsis with septic shock; N17.0 Acute kidney failure with tubular necrosis; G93.41 Metabolic encephalopathy; D61.810 Antineoplastic chemotherapy induced pancytopenia; J18.9 Pneumonia, unspecified organism; J91.0 Malignant pleural effusion; E87.2 Acidosis; C78.00 Secondary malignant neoplasm of unspecified lung; C78.7 Secondary malignant neoplasm of liver and intrahepatic bile duct; C79.51 Secondary malignant neoplasm of bone; E44.0 Moderate protein-calorie malnutrition; E87.1 Hypo-osmolality and hyponatremia; L03.311 Cellulitis of abdominal wall; R18.8 Other ascites; I11.0 Hypertensive heart disease with heart failure; I50.9 Heart failure, unspecified; E66.01 Morbid (severe) obesity due to excess calories; B36.8 Other specified superficial mycoses; C50.919 Malignant neoplasm of unspecified site of unspecified female breast; L30.4 Erythema intertrigo; E11.9 Type 2 diabetes mellitus without complications; E78.5 Hyperlipidemia, unspecified; E86.0 Dehydration; E87.5 Hyperkalemia; F41.0 Panic disorder [episodic paroxysmal anxiety]; G47.33 Obstructive sleep apnea (adult) (pediatric); J02.9 Acute pharyngitis, unspecified; K12.30 Oral mucositis (ulcerative), unspecified; R09.02 Hypoxemia; R50.81 Fever presenting with conditions classified elsewhere; T45.1X5A Adverse effect of antineoplastic and immunosuppressive drugs, initial encounter; Z17.0 Estrogen receptor positive status [ER+]; Z68.41 Body mass index [BMI] 40.0-44.9, adult; Z66 Do not resuscitate; Z79.899 Other long term (current) drug therapy; Z90.13 Acquired absence of bilateral breasts and nipples; Z88.1 Allergy status to other antibiotic agents; Z88.2 Allergy status to sulfonamides; Z80.3 Family history of malignant neoplasm of breast
CPT/HCPCS: 36415; 36600; 71010; 71020; 80048; 80053; 81001; 82140; 82550; 82553; 82805; 83605; 83735; 84100; 84484; 85025; 85610; 85730; 86850; 86900; 86901; 87040; 87086; 96361; 96374; 96375; 99285